=== PATIENT | male | born 1950 | race Caucasian/White ===

== ENCOUNTER 2020-01-15 09:58 | Inpatient (IN) | payer OTHER ==
[2020-01-15] MEDS ORDERED: Azithromycin 500 MG VIAL ONE (10:33)
[2020-01-15] MEDS ORDERED: cefTRIAXone\\ROCEPHIN 2 GM VIAL ONE (10:33)
[2020-01-15] MEDS ORDERED: Magnesium 2 GM/50 ML BAG (IN WATER) ONE (10:33)
[2020-01-15] MEDS ORDERED: Albuterol 200 PUFF (6.7GM INHALER) ONE (10:38)
[2020-01-15] MEDS ORDERED: Iopamidol-370 76% 500 ML 1 ML ONE (10:53)
[2020-01-15 10:58] LABS: #Basophils 0.1 thou/uL (0.0-0.2); #Eosinphils 0.2 thou/uL (0.0-0.7); #Lymphocytes 0.7 thou/uL (1.20-3.40); #Monocytes 1.1 thou/uL (0.11-0.59); #Neutrophils 13.4 thou/uL (1.40-6.50); %Basophils 0.6 % (0.0-1.0); %Lymphocytes 4.7 % (21.0-51.0); %Monocytes 7.2 % (0.0-10.0); %Neutrophils 86.5 % (42.0-75.0); Hemoglobin 11.9 g/dL (14.0-18.0); Mean Corpuscular HGB CONC 33.8 g/dL (32.0-36.0); Mean Corpuscular Hemoglobin 29.9 pg (27.0-31.0); Mean Corpuscular Volume 88.4 fL (78.0-98.0); Mean Platelet Volume 7.9 fL (7.4-10.4); Platelet Count 552 thou/uL (130-400); RBC Distribution Width 11.9 % (11.5-14.5); Red Blood Cell (RBC) Count 3.97 mill/uL (4.70-6.10); White Blood Cell (WBC) Count 15.4 thou/uL (4.8-10.8)
--- NOTE | 2020-01-15 11:07 | RAD ---
PORTABLE CHEST: Date: 01/15/2020 HISTORY: Cough. No comparison. FINDINGS: Chest is rotated. There is cardiomegaly with vascular congestion. Evidence of interstitial congestion and diffuse inter stitial edema and/or infiltrate. Right lung is inadequately evaluated due to the rotation. There is a calcified granuloma in the peripheral left lung. Elevated left hemidiaphragm with gas-filled colon u nder the left hemidiaphragm. IMPRESSION: Cardiomegaly with evidence of vascular congestion and interstitial edema. Right lung is poorly evalua kylee. POS: AH
[2020-01-15 11:35] LABS: ALT (SGPT) 34 U/L (8-55); AST (SGOT) 37 U/L (5-34); Albumin 3.1 g/dL (3.4-4.8); Alkaline Phosphatase 133 U/L (40-110); Anion Gap 16 mmol/L (10-20); BUN (Urea Nitrogen) 12 mg/dL (8.4-25.7); Bilirubin, Total 0.8 mg/dL (0.2-1.2); Calc. Creatinine Clearance 0 mL/min (70-130); Carbon Dioxide 24 mmol/L (23-31); Chloride 96 mmol/L (98-107); Estimated GFR-MDRD 70; Globulin 4.1 g/dL (2.4-3.5); Glucose 131 mg/dL (83-110); Potassium 3.6 mmol/L (3.5-5.1); Protein, Total 7.2 g/dL (5.8-8.1); Sodium 132 mmol/L (136-145)
[2020-01-15 12:03] LABS: CKMB 2.2 ng/mL (0-6.6)
--- NOTE | 2020-01-15 12:20 | CT ---
CT HEAD WITHOUT IV CONTRAST COMPARISON: MRI of the brain obtained at [facility] on 09/08/2019 HISTORY: Injury after a fall. Patient hit head. Patient diaphoretic. TECHNIQUE: Axial CT imaging at 5 mm intervals from vertex through skull base without contrast FINDINGS: There is a CSF density cystic lesion in the region of the pineal gland which was seen on prior MRI ex amination and as reported on prior examination could potentially represent a pineal cyst. This cystic lesion again measures approximately 1.9 cm in AP dimensions. Transverse dimension is difficult to measure due to adjacent ventricular system. Prior MRI examination recommended postcontrast imaging due to size of the lesion. Minimal scattered diminished attenuation is seen in periventricular white matter which is nonspecifi c but likely reflective of mild chronic small vessel ischemic changes. Low-density foci are seen in the [place] which is probably related to artifact, but at a least portion of the areas of diminished att enuation are likely attributable to chronic small vessel ischemic changes. There is no evidence of an acute infarction, hemorrhage, mass effect, or midline shift. There is mild cerebral volume loss. T he ventricular system is normal in size, shape, and position for the degree of sulcal atrophy. Skull base has a normal CT appearance. Visualized paranasal sinuses are clear. Osseous structures appear intact. No depressed calvarial fracture is seen. IMPRESSION: 1. CSF density lesion in the expected location of the pineal gland which was better evaluated on prio r MRI examination. 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 2. Mild chronic small vessel ischemic changes and cerebral volume loss. 3. No acute intracranial abnormalities demonstrated.
[2020-01-15 12:34] LABS: Base Excess-Venous -0.4 mmol/L (-2.0 to 3.0); Bicarbonate (HCO3v) 24.4 mmol/L (22.0-28.0); CO2 Tension (PvCO2) 39.3 mmHg (40.0-50.0); Calcium, Ionized 1.02 mmol/L (1.15-1.33); Chloride 96 mmol/L (98-107); Hemoglobin - Calc 12.9 g/dL (14.0-18.0); Potassium 3.5 mmol/L (3.5-5.1); Sodium 133 mmol/L (138-145); T. Carbon Dioxide 25.6 mmol/L (22.0-28.0); vO2 Saturation-calc 92.1 % (60.0-85.0)
[2020-01-15] MEDS ORDERED: Boostrix 0.5 ML (Tdap) VIAL ONE (12:34)
--- NOTE | 2020-01-15 12:38 | CT ---
EXAM: CTA of the chest HISTORY: Shortness of breath for 2 weeks COMPARISON: None TECHNIQUE: Multiple contiguous axial images were obtained a CTA of the chest with contrast per pulmon elisabet embolism protocol. 3-D oblique MIP reformats and direct coronal reformats were performed. FINDINGS: HEART: Normal in size without focal cardiac abnormality. Calcifications in the coronary arteries. PULMONARY ARTERIES: Normal in caliber without filling defects to suggest pulmonary emboli. MEDIASTINUM: Enlarged right pretracheal lymph node measuring 2.1 cm in size. Other smaller right calin r and mediastinal lymph nodes are seen. LUNGS: Diffuse peripheral groundglass attenuation is seen in the lungs. This is greatest in the right lower lobe. There is a calcified granuloma in the lingula. PLEURAL SPACE: Trace right pleural effusion. CHEST WALL SOFT TISSUES: Unremarkable VISUALIZED OSSEOUS STRUCTURES: Degenerative changes in the spine. Multiple flowing enthesophytes are seen in the spine. VISUALIZED SUBDIAPHRAGMATIC STRUCTURES: Multiple scattered granulomas in the spleen. Hyperplasia of b oth adrenal glands without focal mass. IMPRESSION: 1. No evidence of pulmonary thromboembolism 2. Diffuse peripheral groundglass opacities. This could represent chronic interstitial lung disease. Alternatively, this could represent an atypical infectious infiltrate. 3. Nonspecific mediastinal and hilar lymph node enlargement.
[2020-01-15] MEDS ORDERED: Furosemide 20 MG/2 ML VIAL ONE (12:47)
[2020-01-15] MEDS ORDERED: Enoxaparin Sodium 100 MG/ML SYRINGE ONE (12:48)
[2020-01-15] MEDS ORDERED: Senokot S 8.6-50 MG TAB PO PRN (13:32)
[2020-01-15] MEDS ORDERED: Acetaminophen 325 MG TAB PO PRN (13:32)
[2020-01-15] MEDS ORDERED: Ondansetron PF 4 MG/2 ML Vial IVP PRN (13:32)
[2020-01-15] MEDS ORDERED: Dexamethasone 4 mg/ml Vial ONE (13:46)
[2020-01-15 13:55] LABS: SARS-CoV-2 NAA Rapid Test Not Detected (NotDetected)
[2020-01-15 14:14] LABS: Bacteria/HPF None Seen HPF (None Seen); Bilirubin Negative (Negative); Blood, Urine Negative (Negative); Clarity Clear (Clear); Glucose, Urine (Dipstick) Normal (Negative); Ketone, Urine Negative (Negative); Leukocyte Negative Leu/uL (Negative); Nitrite Negative (Negative); Protein, Urine (Dipstick) 300 mg/dL (Neg-Trace); RBC/HPF 0-3 HPF (0-3); Specific Gravity, Urine 1.024 (1.002-1.036); Squamous Epithelial 0-3 HPF (0-3); WBC/HPF 0-3 HPF (0-3); pH, Urine 6.5 (5.0-9.0)
[2020-01-15 14:32] LABS: INR-International Normal Ratio 1.2; PTT 45.8 sec (22.9-36.1); Prothrombin Time 15.8 sec (12.0-14.7)
[2020-01-15 15:09] LABS: Troponin I 0.356 ng/mL (< 0.028)
[2020-01-15] MEDS ORDERED: Nitroglycerin 2% Ointment 1 INCH/1 GM Packet ONE (15:54)
--- NOTE | 2020-01-15 16:17 | CON ---
DATE OF CONSULTATION: 01/15/2020 CONSULTING PHYSICIAN: Hospitalist Group. REASON FOR CONSULTATION: Pneumonia and hypoxemia. HISTORY OF PRESENT ILLNESS: This is a 69-year-old male, who has been sick for the last 3 weeks. He has been unable to seek medical treatment because he says he did not have a ride. his brother to bring him to the hospital today. He has had fever at home. He has had cough and congestion. X-rays in the emergency room showed fairly dense right-sided infiltrate, confirmed by CT scan. He says he has never had pneumonia in the past. He has never really been a smoker and never had any respiratory issues. PAST MEDICAL HISTORY: 1. Hyperlipidemia. 2. Hypertension. PAST SURGICAL HISTORY: Tonsillectomy. SOCIAL HISTORY: Used smokeless tobacco. Does not drink any alcohol. He lives out near [place]. MEDICATIONS: Prior to admission, none except wunz-pel-hfcvewr Robitussin. ALLERGIES: NONE. REVIEW OF SYSTEMS: Twelve-point review of systems is otherwise negative. PHYSICAL EXAMINATION: VITAL SIGNS: Temperature 98.0, pulse 92, blood pressure 184/98, and O2 saturation 94% on 38% high-flow oxygen. GENERAL: He is awake, alert, talkative, and in no distress. HEENT: Pupils are reactive. Sclerae are anicteric. Oropharynx clear. NECK: No adenopathy or JVD. LUNGS: He has crackles in the right lower lobe best heard posteriorly. He has egophony in that region. Left side is clear. CARDIAC: S1 and S2, regular. ABDOMEN: Soft and nontender. EXTREMITIES: No clubbing or cyanosis. He has trace pedal edema. LABORATORY DATA: COVID test was negative. White blood cell count 15.4, hematocrit 35.1, and platelet count 552. INR is 1.2, PTT 45.8. D-dimer 4.1. Venous blood gas showed a pH of 7.4, pCO2 of 39, and pO2 of 64. Sodium 138, potassium 3.5, chloride 96, CO2 of 24, BUN 12, creatinine 1.1, and glucose 131. Troponin 0.031. C-reactive protein 26. Urinalysis showed some proteinuria. CT and chest x-ray were reviewed. ASSESSMENT: Right lower lobe community-acquired pneumonia versus aspiration pneumonia. RECOMMENDATIONS: 1. I would recommend treating with broad-spectrum IV antibiotics. It looks like he has received azithromycin and ceftriaxone in the emergency room that should be appropriate. 2. Nebulization treatments as needed. 3. Wean off high-flow oxygen as tolerated. 4. His COVID test is going to be repeated as only a rapid one was done earlier. The above encompassed 35 minutes of time, of that time, greater than 50% was spent with the patient and/or the patient's unit in the hospital. Job ID: [id number]
--- NOTE | 2020-01-15 17:08 | HP ---
PRIMARY CARE PHYSICIAN: [place] town, [place]. CHIEF COMPLAINT: Shortness of breath. HISTORY OF PRESENT ILLNESS: This is a 69-year-old white male who reports a 2- to 3-week history of shortness of breath. He states that 3 weeks ago he developed low-grade fevers, nasal congestion, and some cough productive of clear sputum and also at that time developed significant dyspnea on exertion and gets severely short of breath with just ambulating around his house. He took some sibn-vbm-hacwepv medications. The patient states he is still having some low-grade fevers in the afternoon, but a lot of his congestion and cough has improved, but his shortness of breath. He went to his primary care doctor's office today. There, he was found to have O2 saturations in the high 80s and looked to be in some respiratory distress. He was sent to the ER here. In the ER, he was saturating okay on 15 L mask; however, he was still having some increased work of breathing and retractions. The patient did have albuterol and was put on high-flow oxygen and is breathing much better now. His O2 saturations are staying up. The patient also reports that he has had some worsening of his lower extremity edema recently. He states he has had lower extremity edema for years. He has been tried on Lasix in the past without any improvement, was never told that he had congestive heart failure. The last few days he states that it seems like the edema has gone up to his knees now, although he states he cannot really see if he can feel it in his legs and his legs feel very heavy from it. REVIEW OF SYSTEMS: CONSTITUTIONAL: See HPI. EYES: No double vision or blurry vision. ENT: See HPI. He had a little bit of sore throat earlier, none now. CARDIOVASCULAR: No cardiac chest pain. No palpitations or racing heart. PULMONARY: See HPI. He did have a little bit of chest pain with his cough in previous couple of weeks, none currently. GASTROINTESTINAL: No abdominal pain. No nausea or vomiting. No diarrhea or constipation. GENITOURINARY: No dysuria or hematuria. MUSCULOSKELETAL: Some pain in his bilateral knees from the edema. SKIN: No rashes or lesions noted. NEUROLOGIC: No numbness, tingling, or focal weakness. The patient does report some unsteadiness on his feet recently. Has been worse for the last 4 weeks. He did fall and hit his head at one point due to this. PAST MEDICAL HISTORY: 1. Seizure disorder since he was a child. 2. Hypertension, on low-dose atenolol, which he has been out of for 7 to 8 weeks. 3. Hyperlipidemia. 4. 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 This is getting further workup. The patient denies past medical history of asthma or COPD, though there is a COPD notation in his chart. PAST SURGICAL HISTORY: Tonsillectomy. SOCIAL HISTORY: No alcohol or illicit drug use. He does have a longstanding history of chewing tobacco, but has never smoked tobacco products. He reports that he is no longer . He lives with one of his older twin sons, Ga Catherine. He has two other sons Hollis Catherine and Ranjan Catherine, who do not live in town. He also has a brother who lives nearby, Arsen Catherine. The patient states that he would prefer his brother to be his medical decision maker should he be incapacitated. He is a full code. FAMILY HISTORY: Brother with diabetes. His dad of his second heart attack in his late 40s. His mother had an aneurysm that burst in the 1960s and so she was debilitated ever since then, has since in a [place] [facility] [place]. No other family medical history. ALLERGIES: NAPROXEN CAUSES REDNESS AND SWELLING OF FEET AND FACE; HOWEVER, HE IS ABLE TO TAKE ASPIRIN AND OTHER NSAIDS LIKE IBUPROFEN WITHOUT ANY PROBLEM. CURRENT MEDICATIONS: 1. Simvastatin 40 mg daily. 2. Levetiracetam 1000 mg in the morning and 1500 mg at bedtime. 3. Oxcarbazepine 600 mg twice a day. 4. Tamsulosin 0.4 mg daily. 5. Potassium chloride 10 mEq twice a day. 6. Aspirin 81 mg daily. 7. Phenytoin 300 mg twice a day. 8. Atenolol/chlorthalidone 100/25 mg once a day. He has actually been out of this for 7 to 8 weeks. PHYSICAL EXAMINATION: VITAL SIGNS: Blood pressure 164/100, pulse 93, respirations 22 on high-flow oxygen, O2 saturation 95%, temperature 98.4. GENERAL: This is a well-developed obese white male, in no acute distress, currently on the oxygen. HEENT: Pupils equal, round, and reactive to light. Oropharynx clear without lesions, erythema, or exudate. NECK: Supple. No lymphadenopathy. No thyroid nodules or enlargement. No significant JVD. HEART: Regular rate and rhythm. No murmurs, rubs, or gallops. LUNGS: Clear to auscultation bilaterally. No wheezes, crackles, or rhonchi. ABDOMEN: Soft, nontender to palpation. Normoactive bowel sounds. No hepatosplenomegaly or other masses. EXTREMITIES: The patient has trace edema to bilateral ankles and feet. I do not appreciate significant edema beyond that. SKIN: No rashes or lesions noted. NEUROLOGIC: The patient moves all extremities equally. No facial droop. PSYCHIATRIC: Alert and oriented x3. Normal mood and affect. LABORATORY DATA: CBC with white blood cell count of 15,000, 86% neutrophils, 4.7% lymphocytes, hemoglobin 11.9, hematocrit 35.1, platelet count 552. Coagulation profile is notable for an INR of 1.2 and a D-dimer of 4.11. Venous blood gas showed a pCO2 of 39, a pO2 of 64, and a normal pH. Complete metabolic panel is notable for sodium of 132, chloride of 96, glucose 131, AST of 37, alkaline phosphatase of 133, albumin of 3.1. The rest was normal. His brain natriuretic peptide is elevated at 272. Troponin was elevated at 0.331. C-reactive protein was elevated at 26. His initial COVID rapid test was negative. Urinalysis had 300 protein. The remainder was negative. Chest x-ray: I did review chest x-ray done in the emergency room along with the radiologist's report. It does show cardiomegaly with some evidence of vascular congestion and interstitial edema with poor evaluation in the lower right lung. CT angio of the chest and thorax shows no evidence of pulmonary thromboembolism, but there was diffuse peripheral ground-glass opacities, possibly representing chronic interstitial lung disease versus atypical infectious infiltrate and some nonspecific mediastinal and hilar lymph node enlargement. CT of the brain done for a history of a fall with hitting his head a few days ago. It shows a CSF density lesion in the expected location of the pineal gland consistent with previous MRI examination showing pineal cyst, also some mild chronic past small-vessel ischemic changes and cerebral volume loss, but no acute intracranial abnormalities. EKG: The patient shows a heart rate of 97 beats per minute with premature atrial complexes, prolonged QT of 477, and nonspecific T-wave changes with normal axis. ASSESSMENT: 1. Acute respiratory failure with hypoxia. This could possibly be pulmonary edema versus COVID versus some other lung process like an atypical pneumonia. The patient received Lasix in the emergency room, is putting out good urine output now. We will continue IV Lasix for now. We will get an echocardiogram and consult Cardiology. I have also talked to Dr. Morales. He did agree with repeating a COVID test to make sure via PCR that the patient is negative. We will also give him nebs as needed and continue the high-flow oxygen in the intermediate care unit. 2. Scd-MB-bwdoqpgfb myocardial infarction, possibly due to stress of sepsis versus primary cardiac issue. Dr. Pickering is being consulted. We will continue aspirin and attempt to get the blood pressure down as well. We will go ahead and use nitroglycerin to the chest wall, and if that is not adequate, we can do a nitroglycerin drip if the blood pressures remain elevated. 3. Sepsis from pneumonia. 4. Hypertensive emergency, improved after Lasix, but still fluctuating. We will monitor closely and start a nitroglycerin drip if needed. 5. Seizure disorder. We will resume the patient's home medications. 6. Gastrointestinal prophylaxis. Put the patient on Pepcid twice a day. 7. Deep venous thrombosis prophylaxis. Put the patient on Lovenox twice a day. 8. Code status. The patient is a full code. Should he be incapacitated, he would like his brother, Arsen Catherine, to be his medical decision maker. Job ID: [id number] [facility]
[2020-01-15] MEDS ORDERED: Nitroglycerin 2% Ointment 1 INCH/1 GM Packet TOP SCH (21:00)
[2020-01-15] MEDS ORDERED: Enoxaparin Sodium 40 MG/0.4 ML SYRINGE SC SCH (21:00)
[2020-01-15] MEDS: Famotidine 20 MG TAB PO SCH (21:28)
[2020-01-15] MEDS ORDERED: Famotidine 20 MG TAB ONE (21:29)
[2020-01-15] MEDS ORDERED: Ondansetron ODT 4 MG TAB PO PRN (23:13)
[2020-01-15 23:59] VITALS: BMI 30.2
[2020-01-16] MEDS: Nitroglycerin 2% Ointment 1 INCH/1 GM Packet TOP SCH ×3 (01:18→21:35)
[2020-01-16 03:55] LABS: #Basophils 0.1 thou/uL (0.0-0.2); #Eosinphils 0.2 thou/uL (0.0-0.7); #Lymphocytes 1.5 thou/uL (1.20-3.40); #Monocytes 1.4 thou/uL (0.11-0.59); #Neutrophils 10.7 thou/uL (1.40-6.50); %Basophils 0.5 % (0.0-1.0); %Eosinophils 1.4 % (0.0-10.0); %Lymphocytes 10.8 % (21.0-51.0); %Monocytes 9.8 % (0.0-10.0); %Neutrophils 77.5 % (42.0-75.0); Hemoglobin 10.7 g/dL (14.0-18.0); Mean Corpuscular HGB CONC 33.8 g/dL (32.0-36.0); Mean Corpuscular Hemoglobin 29.9 pg (27.0-31.0); Mean Corpuscular Volume 88.5 fL (78.0-98.0); Mean Platelet Volume 7.6 fL (7.4-10.4); Platelet Count 539 thou/uL (130-400); RBC Distribution Width 11.8 % (11.5-14.5); Red Blood Cell (RBC) Count 3.58 mill/uL (4.70-6.10); White Blood Cell (WBC) Count 13.9 thou/uL (4.8-10.8)
[2020-01-16 04:21] LABS: Anion Gap 13 mmol/L (10-20); BUN (Urea Nitrogen) 13 mg/dL (8.4-25.7); Calc. Creatinine Clearance 96 mL/min (70-130); Calcium 8.8 mg/dL (7.8-10.44); Carbon Dioxide 26 mmol/L (23-31); Chloride 99 mmol/L (98-107); Estimated GFR-MDRD 75; Glucose 112 mg/dL (83-110); Potassium 3.3 mmol/L (3.5-5.1); Sodium 135 mmol/L (136-145)
[2020-01-16] MEDS: Enoxaparin Sodium 40 MG/0.4 ML SYRINGE SC SCH ×2 (06:38→15:54)
[2020-01-16] MEDS ORDERED: OXcarbazepine 600 MG TAB PO SCH (09:00)
--- NOTE | 2020-01-16 09:01 | PRG ---
DATE OF SERVICE: 01/16/2020 SUBJECTIVE: The patient mainly complains about swelling of and weakness in his legs, otherwise feels okay. OBJECTIVE: VITAL SIGNS: Temperature 97.6, pulse 82, blood pressure 139/73, O2 saturation 94% on high-flow nasal cannula at 48%. HEENT: Unremarkable. NECK: No adenopathy or JVD. CHEST: He has right lower lobe crackles on pulmonary exam. CARDIAC: S1, S2. Regular. ABDOMEN: Soft. EXTREMITIES: Trace edema. LABORATORY DATA: Sodium 135, potassium 3.3, chloride 99, CO2 of 26, BUN 13, creatinine 0.9 and glucose 112. White blood cell count 13.9, hematocrit 31.7, and platelet count 539. Influenza test was negative. COVID rapid test was negative. ASSESSMENT: 1. Right lower lobe pneumonia-likely community-acquired bacterial. 2. Severe hypoxemia. 3. Anemia. PLAN: 1. We would repeat standard COVID test. 2. Continue antibiotics. High-flow oxygen. 3. We would not necessarily use steroids on this patient unless he i1s confirmed COVID positive. Job ID: [id number]
--- NOTE | 2020-01-16 09:04 | PDOC.HOSPP ---
- Subjective Encounter Date: 01/16/20 Encounter Time: 09:30 Subjective: Patient reports feeling a bit better today. Still on the high flow O2. - Objective Vital Signs & Weight: Vital Signs (12 hours) Temp Pulse Ox 01/16/20 07:56 97.6 F 01/16/20 03:46 98.6 F 01/16/20 00:00 97.2 F L 01/15/20 23:15 94 L 01/15/20 23:13 97 01/15/20 22:40 97.9 F Weight Weight 216 lb 11.2 oz Most Recent Monitor Data Heart Rate from ECG 82 NIBP 139/73 NIBP BP-Mean 95 Respiration from ECG 27 SpO2 94 Result Diagrams: 01/16/20 03:38 01/16/20 03:38 Hospitalist ROS - Review of Systems Constitutional: denies: fever, chills Respiratory: reports: cough, shortness of breath Cardiovascular: denies: chest pain, palpitations Gastrointestinal: denies: nausea, vomiting, abdominal pain Genitourinary: denies: dysuria, hematuria - Medication Medications: Active Medications Generic Name Dose Route Start Last Admin Trade Name Freq PRN Reason Stop Dose Admin Acetaminophen 650 mg 01/15/20 13:32 01/16/20 06:38 Acetaminophen 325 Mg Tab PO 650 mg Q4H PRN Administration Headache/Fever/Mild Pain (1-3) Enoxaparin Sodium 40 mg 01/16/20 01:00 01/16/20 06:38 Enoxaparin Sodium 40 Mg/0.4 Ml Syringe SC Not Given 0100,1300 [facility] Famotidine 20 mg 01/15/20 21:00 01/15/20 21:28 Famotidine 20 Mg Tab PO 20 mg BID NEERU Administration Nitroglycerin 1 inch 01/15/20 09:00 01/16/20 01:18 Nitroglycerin 2% Ointment 1 Inch/1 Gm Packet TOP Not Given BID NEERU - Exam General Appearance: NAD, awake alert ENT: moist mucosa Heart: RRR, no murmur, no gallops, no rubs Respiratory: no wheezes Respiratory - other findings: course breath sounds in bases Gastrointestinal: soft, non-tender, non-distended, normal bowel sounds Extremities: no edema Psychiatric: normal affect, normal behavior, A&O x 3 Hosp A/P (1) Acute respiratory failure with hypoxia Code(s): J96.01 - ACUTE RESPIRATORY FAILURE WITH HYPOXIA Status: Acute (2) Congestive heart failure Code(s): I50.9 - HEART FAILURE, UNSPECIFIED Status: Acute Qualifiers: Heart failure type: unspecified Heart failure chronicity: acute Qualified Code(s): I50.9 - Heart failure, unspecified (3) HTN (hypertension) Code(s): I10 - ESSENTIAL (PRIMARY) HYPERTENSION Status: Chronic (4) Sepsis Code(s): A41.9 - SEPSIS, UNSPECIFIED ORGANISM Status: Acute (5) Pneumonia Code(s): J18.9 - PNEUMONIA, UNSPECIFIED ORGANISM Status: Acute (6) Seizure disorder Code(s): G40.909 - EPILEPSY, UNSP, NOT INTRACTABLE, WITHOUT STATUS EPILEPTICUS Status: Chronic (7) Type 2 GA (myocardial infarction) Code(s): I21.A1 - MYOCARDIAL INFARCTION TYPE 2 Status: Acute - Plan Diuresing with Lasix, ECHO pending. Dr. Pickering consulted. Repeat Covid-19 test pending, on Dexamethasone On Rocephin and Azithromycin for pneumonia Appreciate Dr. Morales's assistance. GI proph: Pepcid BID DVT proph: Lovenox
[2020-01-16] MEDS ORDERED: Furosemide 40 MG/4 ML VIAL SLOW IVP SCH (09:15)
[2020-01-16] MEDS ORDERED: OXcarbazepine 300 MG TAB PO SCH (10:00)
--- NOTE | 2020-01-16 10:23 | CON ---
DATE OF CONSULTATION: 01/16/2020 INDICATION FOR CONSULTATION: A 69-year-old gentleman with a 3-week history of shortness of breath. We were asked to see him due to shortness of breath and possible congestive heart failure. HISTORY OF PRESENT ILLNESS: A very unfortunate 69-year-old gentleman who has been sick for about 3 weeks. He started having woke up in the middle of the night with some fevers and chills. He started developing cough and congestion. Apparently, he has been COVID negative, but certainly has symptoms which could indicate COVID. He has had worsening of his shortness of breath. He says he has been ill. He went to his primary care doctor's and at that time, was found to have low O2 saturations and was sent to the emergency room. He at this time is still on high-flow oxygen, is breathing better. His O2 saturations are in the 90s. He said he had some problems with lower extremity edema for several years, but has problems with foot pain as he has no edema today when I am seeing him. He has been treated with Lasix in the past. His chest x-ray shows diffuse infiltrates, which appears to be bilateral pneumonias. He certainly could have interstitial lung disease also. He has no significant edema at this time. His legs are somewhat large. He may perhaps have some ankle edema and pedal edema, but otherwise, there is no significant edema noted today. He denies any chest pain he said when he has a cough which he said started about 3 weeks ago. PAST MEDICAL HISTORY: Significant for tonsillectomy, history of seizure disorder, dyslipidemia, and hypertension. He has had a pineal cyst and apparently, he has had no significant sequela noted from this thus far and apparently, he is under the care of Neurology for further evaluation. The records indicate some history of COPD, however, he denies that. He has also had a tonsillectomy. SOCIAL HISTORY: He denies any alcohol or tobacco abuse. He denies any history of alcohol use or illicit drug use. He does have a history of chewing tobacco. He has no history of smoking cigarettes. He was in the past. He has children who are alive and well. FAMILY HISTORY: Positive for diabetes. His father had myocardial infarction. His mother also had some type of aneurysm, most likely cerebral aneurysm. ALLERGIES: HE HAS A HISTORY OF NONSTEROIDAL ALLERGIES IN THE FORM OF NAPROSYN, BUT SAYS HE CAN TAKE OTHER NONSTEROIDALS. PRESENT MEDICATIONS: Included: 1. Simvastatin. 2. Oxcarbazepine. 3. Levetiracetam. 4. Tamsulosin. 5. He takes potassium 10 mEq a day. 6. Aspirin 81 mg a day. 7. He is on phenytoin 300 mg b.i.d. 8. He also takes atenolol/chlorthalidone 100/25 once a day. He has apparently not been taking his medications for about 2 months. REVIEW OF SYSTEMS: He mainly complains of the lower extremity edema and coughing and some chest discomfort when he coughs. Otherwise, no significant complaints on the review of systems. He does complain of the feet and leg pains. He has difficulty walking due to his feet. He says it feels heavy and he has unsteady gait. PHYSICAL EXAMINATION: GENERAL: Reveals an elderly gentleman. VITAL SIGNS: Blood pressure is 135/78, heart rate is in the 70s and shows a sinus rhythm. He is afebrile. Respiratory rate is 22 to 27. He is on high-flow oxygen, O2 saturation is 91% to 97%. HEENT: Reveals the head to be normocephalic and atraumatic. There were no significant abnormalities noted. The thyroid was not enlarged. NECK: He has no significant JVD noted. Carotid pulses are present. CARDIOVASCULAR: Reveals a regular rate and rhythm. There were no gross murmurs. He does have a very soft diastolic murmur of the aortic area. CHEST: Shows diffuse fine rales throughout. ABDOMEN: Soft and nontender. Positive bowel sounds are present . EXTREMITIES: Show no clubbing, cyanosis, or edema. Pedal pulses are present. NEUROLOGIC: I do not see any gross focal motor deficits. SKIN: Warm and dry. LABORATORY DATA: Show a WBC of 13.9, hemoglobin 10.7, and platelet count of 539,000. His sodium is 135, potassium 3.3, BUN was 13 with creatinine 0.98, blood sugar was 112. Troponin I is indeterminate and on admission, was 0.33, increased up to 0.35, has now decreased down to 0.25. Echocardiogram this morning, preliminary report showed ejection fraction to be about 50% to 55%. He has mild aortic valve regurgitation, mild tricuspid valve regurgitation, mild mitral valve regurgitation, what appears to be diastolic dysfunction. Chest x-ray shows diffuse infiltrates. IMPRESSION: 1. Elderly gentleman with bilateral pneumonia. He has been treated with antibiotics at this time and is being seen by the master brewer. 2. Possible congestive heart failure with overlying pneumonia. He was given some diuretics in the emergency room, I believe. He has had some diuresis. There has been no documented I's and O's for today. At this time, continue with low-dose diuretics. He has been on a mild diuretic in the past in the form of his home medications which include chlorthalidone. 3. Hypertension. This appears to be under good control at this time, which may be due to underlying sepsis. Otherwise, he may have had high blood pressure. History of what appears to be diastolic dysfunction. He denies any previous cardiac history. We will continue to monitor the patient and most likely in the future, he will need to undergo further evaluation once the pneumonia has resolved. At this time, his overall cardiac status appears to be relatively stable. 4. Elevated cardiac enzymes, most likely indicates type 2 myocardial infarction with demand ischemia associated with his pneumonia, which has been ongoing for about 3 weeks. We will be more than happy to continue to follow the patient with you. Job ID: [id number] [facility]
[2020-01-16] MEDS: levETIRAcetam 500 MG TAB PO SCH ×2 (10:59→21:30)
[2020-01-16] MEDS: Aspirin 325 MG TAB PO SCH (10:59)
[2020-01-16] MEDS: Dexamethasone 4 MG TAB PO SCH (11:00)
[2020-01-16] MEDS: Famotidine 20 MG TAB PO SCH ×2 (11:00→21:36)
[2020-01-16] MEDS: Azithromycin 500 MG in Sodium Chloride 0.9% 250 ML 250 ML IVPB SCH (11:01)
[2020-01-16] MEDS: cefTRIAXone\\ROCEPHIN 2 GM in Sodium Chloride 0.9% 100 ML IVPB SCH (11:01)
[2020-01-16] MEDS: Tamsulosin HCl 0.4 MG CAP PO SCH (11:01)
[2020-01-16] MEDS: Albuterol 200 PUFF (6.7GM INHALER) INH SCH (15:54)
[2020-01-16] MEDS: Furosemide 40 MG/4 ML VIAL SLOW IVP SCH (15:55)
[2020-01-16 17:30] LABS: SARS-CoV-2 MS2 Positive; SARS-CoV-2 N Gene Negative; SARS-CoV-2 S Gene Negative; SARS-CoV-2 by NAA Not Detected (NotDetected); SARS-CoV-2 orf1ab Negative
[2020-01-16] MEDS ORDERED: FLU VACC QS2020-21(65YR UP)/PF 240 MCG/0.7 ML SYRINGE IM ONE (21:00)
[2020-01-16] MEDS: Atorvastatin Calcium 20 MG TAB PO SCH (21:30)
[2020-01-17] MEDS: Albuterol 200 PUFF (6.7GM INHALER) INH SCH ×5 (05:06→18:29)
[2020-01-17] MEDS: Furosemide 40 MG/4 ML VIAL SLOW IVP SCH ×2 (06:22→13:41)
[2020-01-17] MEDS: Enoxaparin Sodium 40 MG/0.4 ML SYRINGE SC SCH ×4 (06:23→18:28)
--- NOTE | 2020-01-17 07:37 | PDOC.HOSPP ---
- Subjective Encounter Date: 01/17/20 Encounter Time: 07:27 Subjective: dry cough, sob with talking. - Objective Vital Signs & Weight: Vital Signs (12 hours) Temp Pulse Ox 01/17/20 04:00 98.2 F 01/17/20 02:26 100 01/17/20 00:00 97.9 F 01/16/20 20:00 98.3 F 99 Weight Weight 216 lb 11.2 oz Most Recent Monitor Data Heart Rate from ECG 71 NIBP 137/73 NIBP BP-Mean 94 Respiration from ECG 27 SpO2 94 I&O: 01/16/20 01/17/20 01/18/20 06:59 06:59 06:59 Intake Total 1500 Output Total 3425 Balance -1925 Result Diagrams: 01/16/20 03:38 01/16/20 03:38 Hospitalist ROS - Medication Medications: Active Medications Generic Name Dose Route Start Last Admin Trade Name Freq PRN Reason Stop Dose Admin Acetaminophen 650 mg 01/15/20 13:32 01/16/20 06:38 Acetaminophen 325 Mg Tab PO 650 mg Q4H PRN Administration Headache/Fever/Mild Pain (1-3) Albuterol Sulfate 2 puff 01/16/20 15:00 01/17/20 05:06 Albuterol 200 Puff (6.7gm Inhaler) INH Not Given [id number] NEERU Aspirin 325 mg 01/16/20 09:00 01/16/20 10:59 Aspirin 325 Mg Tab PO 325 mg DAILY NEERU Administration Atorvastatin Calcium 20 mg 01/16/20 21:00 01/16/20 21:30 Atorvastatin Calcium 20 Mg Tab PO 20 mg HS NEERU Administration Dexamethasone 6 mg 01/16/20 08:00 01/16/20 11:00 Dexamethasone 4 Mg Tab PO 6 mg QAM-WM NEERU Administration Enoxaparin Sodium 40 mg 01/17/20 06:00 01/17/20 06:23 Enoxaparin Sodium 40 Mg/0.4 Ml Syringe SC 40 mg 0600,1800 NEERU Administration Famotidine 20 mg 01/15/20 21:00 01/16/20 21:36 Famotidine 20 Mg Tab PO Not Given BID NEERU Furosemide 40 mg 01/16/20 14:00 01/17/20 06:22 Furosemide 40 Mg/4 Ml Vial SLOW IVP 40 mg 0600,1400 NEERU Administration Ceftriaxone Sodium 2 gm/ 100 mls @ 200 mls/hr 01/16/20 11:00 01/16/20 11:01 Sodium Chloride IVPB 100 mls Q24HR NEERU Administration Azithromycin 500 mg/ Sodium 250 mls @ 250 mls/hr 01/16/20 12:00 01/16/20 11:01 Chloride IVPB 250 mls Q24HR NEERU Administration Levetiracetam 1,000 mg 01/16/20 09:00 01/16/20 10:59 Levetiracetam 500 Mg Tab PO 1,000 mg QAM NEERU Administration Levetiracetam 1,500 mg 01/16/20 21:00 01/16/20 21:30 Levetiracetam 500 Mg Tab PO 1,500 mg QPM NEERU Administration Nitroglycerin 1 inch 01/15/20 09:00 01/16/20 21:35 Nitroglycerin 2% Ointment 1 Inch/1 Gm Packet TOP Not Given BID NEERU Tamsulosin HCl 0.4 mg 01/16/20 09:00 01/16/20 11:01 Tamsulosin Hcl 0.4 Mg Cap PO 0.4 mg DAILY NEERU Administration - Exam General Appearance: awake alert Neck: no JVD Heart: RRR, no murmur Respiratory - other findings: rales, R>L, coarse BS Gastrointestinal: soft, non-distended, normal bowel sounds Extremities: 1+ LE edema Hosp A/P (1) Acute combined systolic and diastolic congestive heart failure Code(s): I50.41 - ACUTE COMBINED SYSTOLIC AND DIASTOLIC (CONGESTIVE) HRT FAIL Status: Acute (2) Acute respiratory failure with hypoxia Code(s): J96.01 - ACUTE RESPIRATORY FAILURE WITH HYPOXIA Status: Acute (3) Pneumonia Code(s): J18.9 - PNEUMONIA, UNSPECIFIED ORGANISM Status: Acute Qualifiers: Pneumonia type: due to Pneumococcus Laterality: right Lung location: lower lobe of lung Qualified Code(s): J13 - Pneumonia due to Streptococcus pneumoniae (4) Type 2 [place] (myocardial infarction) Code(s): I21.A1 - MYOCARDIAL INFARCTION TYPE 2 Status: Acute (5) HTN (hypertension) Code(s): I10 - ESSENTIAL (PRIMARY) HYPERTENSION Status: Chronic Qualifiers: Hypertension type: essential hypertension Qualified Code(s): I10 - Essential (primary) hypertension (6) Seizure disorder Code(s): G40.909 - EPILEPSY, UNSP, NOT INTRACTABLE, WITHOUT STATUS EPILEPTICUS Status: Chronic - Plan cont high flow O2 cont zithromax/rocephin cont iv diuresis discuss with Cardiology, Pulmonology
[2020-01-17] MEDS: Aspirin 325 MG TAB PO SCH (08:59)
[2020-01-17] MEDS: Dexamethasone 4 MG TAB PO SCH (08:59)
[2020-01-17] MEDS ORDERED: Potassium Chloride 10 MEQ TAB PO SCH (09:00)
[2020-01-17] MEDS: Famotidine 20 MG TAB PO SCH ×2 (09:00→21:23)
[2020-01-17] MEDS: Nitroglycerin 2% Ointment 1 INCH/1 GM Packet TOP SCH ×2 (09:01→21:24)
[2020-01-17] MEDS: Tamsulosin HCl 0.4 MG CAP PO SCH (09:01)
[2020-01-17] MEDS: OXcarbazepine 300 MG TAB PO SCH (09:01)
[2020-01-17] MEDS: levETIRAcetam 500 MG TAB PO SCH ×2 (09:01→21:23)
--- NOTE | 2020-01-17 09:41 | PRG ---
DATE OF SERVICE: 01/17/2020 SUBJECTIVE: The patient seems to be doing somewhat better. OBJECTIVE: VITAL SIGNS: On exam, temperature 97.2, pulse 85, blood pressure 161/95, and O2 saturation 100% on a 45% high-flow nasal cannula. HEENT: Unremarkable. NECK: No adenopathy or JVD. LUNGS: He has inspiratory crackles at the right base. Left side is clear. CARDIAC: S1 and S2, regular. ABDOMEN: Soft. EXTREMITIES: No edema. LABORATORY DATA: No new lab was repeated today. Cultures show no growth to date. ASSESSMENT: 1. Right lower lobe pneumonia. 2. Acute hypoxic respiratory failure. 3. COVID negative x2. 4. Systolic and diastolic cardiac dysfunction. PLAN: 1. The patient can be transferred out to the medical floor from my standpoint. I would continue with the antibiotics. 2. Consult physical therapy and increase activity as tolerated. Job ID: [id number]
[2020-01-17] MEDS: cefTRIAXone\\ROCEPHIN 2 GM in Sodium Chloride 0.9% 100 ML IVPB SCH (12:35)
[2020-01-17] MEDS: Azithromycin 500 MG in Sodium Chloride 0.9% 250 ML 250 ML IVPB SCH (12:35)
[2020-01-17] MEDS: Atorvastatin Calcium 20 MG TAB PO SCH (21:23)
[2020-01-18 03:47] LABS: #Basophils 0.1 thou/uL (0.0-0.2); #Eosinphils 0.6 thou/uL (0.0-0.7); #Lymphocytes 1.9 thou/uL (1.20-3.40); #Neutrophils 10.1 thou/uL (1.40-6.50); %Basophils 0.6 % (0.0-1.0); %Eosinophils 4.5 % (0.0-10.0); %Lymphocytes 13.6 % (21.0-51.0); %Monocytes 7.4 % (0.0-10.0); Hemoglobin 11.3 g/dL (14.0-18.0); Mean Corpuscular HGB CONC 33.3 g/dL (32.0-36.0); Mean Corpuscular Hemoglobin 29.3 pg (27.0-31.0); Mean Platelet Volume 7.7 fL (7.4-10.4); Platelet Count 537 thou/uL (130-400); RBC Distribution Width 11.8 % (11.5-14.5); Red Blood Cell (RBC) Count 3.85 mill/uL (4.70-6.10); White Blood Cell (WBC) Count 13.6 thou/uL (4.8-10.8)
[2020-01-18 04:08] LABS: Anion Gap 13 mmol/L (10-20); BUN (Urea Nitrogen) 19 mg/dL (8.4-25.7); Calc. Creatinine Clearance 94 mL/min (70-130); Calcium 8.8 mg/dL (7.8-10.44); Carbon Dioxide 30 mmol/L (23-31); Chloride 95 mmol/L (98-107); Estimated GFR-MDRD 74; Glucose 86 mg/dL (83-110); Sodium 135 mmol/L (136-145)
[2020-01-18] MEDS: Enoxaparin Sodium 40 MG/0.4 ML SYRINGE SC SCH ×2 (06:54→17:46)
[2020-01-18] MEDS: Furosemide 40 MG/4 ML VIAL SLOW IVP SCH (06:54)
[2020-01-18] MEDS: Albuterol 200 PUFF (6.7GM INHALER) INH SCH ×4 (08:13→18:35)
--- NOTE | 2020-01-18 08:18 | PDOC.HOSPP ---
- Subjective Encounter Date: 01/18/20 Encounter Time: 08:12 Subjective: mild sob, otherwise ok - Objective Vital Signs & Weight: Vital Signs (12 hours) Temp 01/18/20 04:39 98.2 F 01/17/20 23:28 98.0 F Weight Weight 216 lb 11.2 oz Most Recent Monitor Data Heart Rate from ECG 86 NIBP 142/78 NIBP BP-Mean 99 Respiration from ECG 28 SpO2 92 I&O: 01/17/20 01/18/20 01/19/20 06:59 06:59 06:59 Intake Total 1500 1530 Output Total 3032 8689 Balance -1925 -555 Result Diagrams: 01/18/20 03:30 01/18/20 03:30 Hospitalist ROS - Medication Medications: Active Medications Generic Name Dose Route Start Last Admin Trade Name Freq PRN Reason Stop Dose Admin Acetaminophen 650 mg 01/15/20 13:32 01/16/20 06:38 Acetaminophen 325 Mg Tab PO 650 mg Q4H PRN Administration Headache/Fever/Mild Pain (1-3) Albuterol Sulfate 2 puff 01/16/20 15:00 01/17/20 18:29 Albuterol 200 Puff (6.7gm Inhaler) INH 2 puff [id number] NEERU Administration Aspirin 325 mg 01/16/20 09:00 01/17/20 08:59 Aspirin 325 Mg Tab PO 325 mg DAILY NEERU Administration Atorvastatin Calcium 20 mg 01/16/20 21:00 01/17/20 21:23 Atorvastatin Calcium 20 Mg Tab PO 20 mg HS NEERU Administration Dexamethasone 6 mg 01/16/20 08:00 01/17/20 08:59 Dexamethasone 4 Mg Tab PO 6 mg QAM-WM NEERU Administration Enoxaparin Sodium 40 mg 01/17/20 06:00 01/18/20 06:54 Enoxaparin Sodium 40 Mg/0.4 Ml Syringe SC 40 mg 0600,1800 NEERU Administration Famotidine 20 mg 01/15/20 21:00 01/17/20 21:23 Famotidine 20 Mg Tab PO Not Given BID NEERU Furosemide 40 mg 01/16/20 14:00 01/18/20 06:54 Furosemide 40 Mg/4 Ml Vial SLOW IVP 40 mg 0600,1400 NEERU Administration Ceftriaxone Sodium 2 gm/ 100 mls @ 200 mls/hr 01/16/20 11:00 01/17/20 12:35 Sodium Chloride IVPB 100 mls Q24HR NEERU Administration Azithromycin 500 mg/ Sodium 250 mls @ 250 mls/hr 01/16/20 12:00 01/17/20 12:35 Chloride IVPB 250 mls Q24HR NEERU Administration Levetiracetam 1,000 mg 01/16/20 09:00 01/17/20 09:01 Levetiracetam 500 Mg Tab PO 1,000 mg QAM NEERU Administration Levetiracetam 1,500 mg 01/16/20 21:00 01/17/20 21:23 Levetiracetam 500 Mg Tab PO 1,500 mg QPM NEERU Administration Nitroglycerin 1 inch 01/15/20 09:00 01/17/20 21:24 Nitroglycerin 2% Ointment 1 Inch/1 Gm Packet TOP Not Given BID NEERU Oxcarbazepine 600 mg 01/17/20 09:00 01/17/20 09:01 Oxcarbazepine 300 Mg Tab PO 600 mg DAILY NEERU Administration Potassium Chloride 10 meq 01/17/20 09:00 01/17/20 09:01 Potassium Chloride 10 Meq Tab PO 10 meq DAILY NEERU Administration Tamsulosin HCl 0.4 mg 01/16/20 09:00 01/17/20 09:01 Tamsulosin Hcl 0.4 Mg Cap PO 0.4 mg DAILY NEERU Administration - Exam General Appearance: awake alert Neck: no JVD Heart: RRR, no murmur Respiratory - other findings: rales, coarse BS on right Gastrointestinal: soft, normal bowel sounds Extremities: no edema Hosp A/P (1) Acute combined systolic and diastolic congestive heart failure Code(s): I50.41 - ACUTE COMBINED SYSTOLIC AND DIASTOLIC (CONGESTIVE) HRT FAIL Status: Acute (2) Acute respiratory failure with hypoxia Code(s): J96.01 - ACUTE RESPIRATORY FAILURE WITH HYPOXIA Status: Acute (3) Pneumonia Code(s): J18.9 - PNEUMONIA, UNSPECIFIED ORGANISM Status: Acute Qualifiers: Pneumonia type: due to Pneumococcus Laterality: right Lung location: lower lobe of lung Qualified Code(s): J13 - Pneumonia due to Streptococcus pneumoniae (4) Type 2 [place] (myocardial infarction) Code(s): I21.A1 - MYOCARDIAL INFARCTION TYPE 2 Status: Acute (5) HTN (hypertension) Code(s): I10 - ESSENTIAL (PRIMARY) HYPERTENSION Status: Chronic Qualifiers: Hypertension type: essential hypertension Qualified Code(s): I10 - Essential (primary) hypertension (6) Seizure disorder Code(s): G40.909 - EPILEPSY, UNSP, NOT INTRACTABLE, WITHOUT STATUS EPILEPTICUS Status: Chronic - Plan O2 supplementation cont zithromax/rocephin rpt CXR discuss with Cardiology, Pulmonology
--- NOTE | 2020-01-18 08:56 | PRG ---
DATE OF SERVICE: 01/18/2020 SUBJECTIVE: From a breathing standpoint, the patient feels better. He has multiple other complaints not related to his medical issues. OBJECTIVE: VITAL SIGNS: Temperature 98.2, pulse 86, blood pressure 142/78, O2 saturation 92% on room air. HEENT: Unremarkable. NECK: No adenopathy or JVD. LUNGS: Inspiratory crackles in the right base. Left side is clear. CARDIAC: S1, S2. Regular. ABDOMEN: Soft. EXTREMITIES: No edema. LABORATORY DATA: Sodium 135, potassium 3, chloride 95, CO2 of 30, BUN 19, creatinine 1.0, and glucose 86. White blood cell count 13.6, hematocrit 33.9, and platelet count 537. ASSESSMENT: 1. Community-acquired pneumonia-right lower lobe. 2. Acute hypoxic respiratory failure. 3. Systolic and diastolic cardiac dysfunction. 4. Hypokalemia. PLAN: I think we can reduce the dose of his diuretics. He will be given more potassium today. He can be transferred to the medical floor. I will stop his dexamethasone. Job ID: [id number]
--- NOTE | 2020-01-18 09:39 | RAD ---
EXAM: Chest 2 views: HISTORY: Pneumonia and CHF COMPARISON: 01/15/2020 FINDINGS: There is an enlarged cardiomediastinal silhouette. Volume loss is seen in the right thorax. This cau ses tracheal deviation to the right. Airspace opacity seen in the right lower lobe consistent with pneumonia. There is a calcified granuloma in the left upper lobe. There is elevation of the left josefa diaphragm. No acute osseous abnormality. IMPRESSION: Stable right lower lobe infiltrate
[2020-01-18] MEDS: Aspirin 325 MG TAB PO SCH (09:42)
[2020-01-18] MEDS: Tamsulosin HCl 0.4 MG CAP PO SCH (09:43)
[2020-01-18] MEDS: Nitroglycerin 2% Ointment 1 INCH/1 GM Packet TOP SCH ×2 (09:43→21:27)
[2020-01-18] MEDS: OXcarbazepine 300 MG TAB PO SCH (09:43)
[2020-01-18] MEDS: levETIRAcetam 500 MG TAB PO SCH ×2 (09:43→21:26)
[2020-01-18] MEDS: Famotidine 20 MG TAB PO SCH ×2 (09:43→21:26)
[2020-01-18] MEDS: Dexamethasone 4 MG TAB PO SCH (09:45)
[2020-01-18] MEDS: Potassium Chloride 20 MEQ TAB PO SCH (09:48)
--- NOTE | 2020-01-18 10:27 | PQF ---
CLINICAL DOCUMENTATION CLARIFICATION FORM: Dear Dr. DANILO LYMAN Date: 01-18-20 Please exercise your independent, professional judgment in responding to the clarification form. Clinical indicators are provided on the bottom of this form for your review. Please check appropriate box(es) to clarify if the following diagnosis has been ruled in our ruled out: SEPSIS [ ] Ruled in diagnosis [ ] Continue to treat [ ] Resolved [ x] Ruled out diagnosis [ ] Other diagnosis [ ] Unable to determine In addition, please specify: Present on Admission (POA): [ ] Yes [ ] No [ ] Unable to determine For continuity of documentation, please document condition throughout progress notes and discharge summary. Thank You. To be completed by CDI/Coding staff for physician review: CLINICAL INDICATORS - SIGNS / SYMPTOMS / LABS / RESULTS AND LOCATION IN MR: ER DX 01-15-20: BILATERAL PNEUMONIA, COVID SUSPECT, NSTEMI, SEPSIS H&P 01-15-20: ACUTE RESPIRATORY FAILURE WITH HYPOXIA, NSTEMI, POSSIBLY DUE TO STRESS OF SEPSIS VS PRIMARY CARDIAC ISSUE, SEPSIS FROM PNEUMONIA, HTN EMERGENCY PN DR. LYMAN 01-18-20: ACUTE COMBINED SYSTOLIC AND DIASTOLIC CHF, ACUTE RESPIRATORY FAILURE WITH HYPOXIA, PNEUMONIA, TYPE 2 ID WBC: 01-15-20: 15.4 01-16-20: 13.9 01-18-20: 13.6 CRP: 01-15-20: 26.21 RISK FACTORS / RESULTS AND LOCATION IN MR: H&P 01-15-20: ACUTE RESPIRATORY FAILURE WITH HYPOXIA, NSTEMI, POSSIBLY DUE TO STRESS OF SEPSIS VS PRIMARY CARDIAC ISSUE, SEPSIS FROM PNEUMONIA, HTN EMERGENCY TREATMENTS / RESULTS AND LOCATION IN MR: ER NOTES 01-15-20: AZITHROMYCIN IV, CEFTRIAXONE IV, NS IVF CDS Signature: Meaghan Brown Phone #: [phone] Date: 01-18-20 This is a permanent part of the Medical Record [facility]
[2020-01-18] MEDS: cefTRIAXone\\ROCEPHIN 2 GM in Sodium Chloride 0.9% 100 ML IVPB SCH (11:49)
--- NOTE | 2020-01-18 13:41 | PDOC.EVN ---
Event Note - Event Note Event Note: some clearing of R PNA cont current Tx
[2020-01-18] MEDS: Azithromycin 500 MG in Sodium Chloride 0.9% 250 ML 250 ML IVPB SCH (14:36)
[2020-01-18] MEDS: Atorvastatin Calcium 20 MG TAB PO SCH (21:26)
[2020-01-19] MEDS: Enoxaparin Sodium 40 MG/0.4 ML SYRINGE SC SCH ×2 (05:22→17:34)
[2020-01-19] MEDS: Potassium Chloride 20 MEQ TAB PO SCH (09:32)
[2020-01-19] MEDS: Aspirin 325 MG TAB PO SCH (09:33)
[2020-01-19] MEDS: Tamsulosin HCl 0.4 MG CAP PO SCH (09:33)
[2020-01-19] MEDS: OXcarbazepine 300 MG TAB PO SCH (09:33)
[2020-01-19] MEDS: Famotidine 20 MG TAB PO SCH ×2 (09:35→20:24)
[2020-01-19] MEDS: Furosemide 40 MG TAB PO SCH (09:35)
[2020-01-19] MEDS: levETIRAcetam 500 MG TAB PO SCH ×2 (09:35→20:25)
[2020-01-19] MEDS: Nitroglycerin 2% Ointment 1 INCH/1 GM Packet TOP SCH ×2 (09:36→20:25)
[2020-01-19] MEDS: Albuterol 200 PUFF (6.7GM INHALER) INH SCH ×4 (11:14→18:23)
[2020-01-19] MEDS: cefTRIAXone\\ROCEPHIN 2 GM in Sodium Chloride 0.9% 100 ML IVPB SCH (12:23)
--- NOTE | 2020-01-19 13:00 | PDOC.HOSPP ---
- Subjective Encounter Date: 01/19/20 Encounter Time: 08:45 Subjective: Patient seen and examined. No new complaints. No overnight events - Objective Vital Signs & Weight: Vital Signs (12 hours) Temp Pulse Resp BP Pulse Ox 01/19/20 10:57 98.2 F 86 16 149/82 H 96 01/19/20 07:08 98.4 F 82 16 131/75 95 01/19/20 04:16 97.9 F 78 20 131/65 91 L Weight Weight 216 lb 11.2 oz Most Recent Monitor Data Heart Rate from ECG 101 NIBP 146/73 NIBP BP-Mean 97 Respiration from ECG 21 SpO2 94 I&O: 01/18/20 01/19/20 01/20/20 06:59 06:59 06:59 Intake Total 1530 1510 Output Total 2175 2300 Balance -725 -030 Result Diagrams: 01/18/20 03:30 01/18/20 03:30 Hospitalist ROS - Review of Systems ENT: denies: ear pain, ear discharge, nose pain, nose discharge, nose congestion, mouth pain, mouth swelling, throat pain, throat swelling, other Respiratory: denies: cough, dry, shortness of breath, hemoptysis, SOB with excertion, pleuritic pain, sputum, wheezing, other Cardiovascular: denies: chest pain, palpitations, orthopnea, paroxysmal noc. dyspnea, edema, light headedness, other Gastrointestinal: denies: nausea, vomiting, abdominal pain, diarrhea, constipation, melena, hematochezia, other Genitourinary: denies: dysuria, frequency, incontinence, hematuria, retention, other Musculoskeletal: denies: neck pain, shoulder pain, arm pain, back pain, hand pain, leg pain, foot pain, other - Medication Medications: Active Medications Generic Name Dose Route Start Last Admin Trade Name Freq PRN Reason Stop Dose Admin Acetaminophen 650 mg 01/15/20 13:32 01/16/20 06:38 Acetaminophen 325 Mg Tab PO 650 mg Q4H PRN Administration Headache/Fever/Mild Pain (1-3) Albuterol Sulfate 2 puff 01/16/20 15:00 01/19/20 11:17 Albuterol 200 Puff (6.7gm Inhaler) INH Not Given [id number] Aspirin 325 mg 01/16/20 09:00 01/19/20 09:33 Aspirin 325 Mg Tab PO 325 mg DAILY NEERU Administration Atorvastatin Calcium 20 mg 01/16/20 21:00 01/18/20 21:26 Atorvastatin Calcium 20 Mg Tab PO 20 mg HS NEERU Administration Enoxaparin Sodium 40 mg 01/17/20 06:00 01/19/20 05:22 Enoxaparin Sodium 40 Mg/0.4 Ml Syringe SC 40 mg 0600,1800 NEERU Administration Famotidine 20 mg 01/15/20 21:00 01/19/20 09:35 Famotidine 20 Mg Tab PO 20 mg BID NEERU Administration Furosemide 40 mg 01/19/20 07:30 01/19/20 09:35 Furosemide 40 Mg Tab PO 40 mg DAILY-AC NEERU Administration Ceftriaxone Sodium 2 gm/ 100 mls @ 200 mls/hr 01/16/20 11:00 01/19/20 12:23 Sodium Chloride IVPB 100 mls Q24HR NEERU Administration Azithromycin 500 mg/ Sodium 250 mls @ 250 mls/hr 01/16/20 12:00 01/18/20 14:36 Chloride IVPB 250 mls Q24HR NEERU Administration Levetiracetam 1,000 mg 01/16/20 09:00 01/19/20 09:35 Levetiracetam 500 Mg Tab PO 1,000 mg QAM NEERU Administration Levetiracetam 1,500 mg 01/16/20 21:00 01/18/20 21:26 Levetiracetam 500 Mg Tab PO 1,500 mg QPM NEERU Administration Nitroglycerin 1 inch 01/15/20 09:00 01/19/20 09:36 Nitroglycerin 2% Ointment 1 Inch/1 Gm Packet TOP 1 inch BID NEERU Administration Oxcarbazepine 600 mg 01/17/20 09:00 01/19/20 09:33 Oxcarbazepine 300 Mg Tab PO 600 mg DAILY NEERU Administration Potassium Chloride 40 meq 01/18/20 09:00 01/19/20 09:32 Potassium Chloride 20 Meq Tab PO 01/20/20 09:01 40 meq DAILY NEERU Administration Tamsulosin HCl 0.4 mg 01/16/20 09:00 01/19/20 09:33 Tamsulosin Hcl 0.4 Mg Cap PO 0.4 mg DAILY NEERU Administration - Exam General Appearance: NAD, awake alert Eye: PERRL, anicteric sclera ENT: normocephalic atraumatic, no oropharyngeal lesions Neck: supple, symmetric, no JVD, no thyromegaly Heart: RRR, no murmur, no gallops, no rubs Respiratory: CTAB, no wheezes, no rales, no ronchi Gastrointestinal: soft, non-tender, non-distended, normal bowel sounds Extremities: no cyanosis, no clubbing, no edema Skin: normal turgor, no lesions Neurological: no focal deficits Musculoskeletal: normal tone, normal strength Psychiatric: normal affect, normal behavior Hosp A/P (1) Acute combined systolic and diastolic congestive heart failure Code(s): I50.41 - ACUTE COMBINED SYSTOLIC AND DIASTOLIC (CONGESTIVE) HRT FAIL Status: Acute (2) Acute respiratory failure with hypoxia Code(s): J96.01 - ACUTE RESPIRATORY FAILURE WITH HYPOXIA Status: Acute (3) Pneumonia Code(s): J18.9 - PNEUMONIA, UNSPECIFIED ORGANISM Status: Acute Qualifiers: Pneumonia type: due to Pneumococcus Laterality: right Lung location: lower lobe of lung Qualified Code(s): J13 - Pneumonia due to Streptococcus pneumoniae (4) Type 2 [place] (myocardial infarction) Code(s): I21.A1 - MYOCARDIAL INFARCTION TYPE 2 Status: Acute (5) HTN (hypertension) Code(s): I10 - ESSENTIAL (PRIMARY) HYPERTENSION Status: Chronic Qualifiers: Hypertension type: essential hypertension Qualified Code(s): I10 - Essential (primary) hypertension (6) Seizure disorder Code(s): G40.909 - EPILEPSY, UNSP, NOT INTRACTABLE, WITHOUT STATUS EPILEPTICUS Status: Chronic - Plan old records reviewed/req, continue antibiotics, PT/OT, medical social consultant, respiratory therapy continue lasix outpt follow up with cardiology for further evaluation continue iv antibiotics will need placement
[2020-01-19] MEDS: Azithromycin 500 MG in Sodium Chloride 0.9% 250 ML 250 ML IVPB SCH (13:56)
[2020-01-19] MEDS: Atorvastatin Calcium 20 MG TAB PO SCH (20:25)
[2020-01-20] MEDS ORDERED: Calcium Carbonate 500 MG ChewTAB PO PRN (07:50)
[2020-01-20] MEDS ORDERED: Sodium Chloride 0.65% Nasal 44 ML BOT EA NARE PRN (07:50)
[2020-01-20] MEDS ORDERED: Cepastat Lozenges 1 LOZ PO PRN (07:50)
[2020-01-20] MEDS ORDERED: Loperamide HCl 2 MG CAP PO PRN (07:50)
[2020-01-20] MEDS ORDERED: Temazepam 15 MG CAP PO PRN (07:50)
[2020-01-20] MEDS ORDERED: HYDROcodone/Acetaminophen 5/325 mg Tablet PO PRN (07:50)
[2020-01-20] MEDS ORDERED: Bisacodyl 5 MG TAB PO PRN (07:50)
[2020-01-20] MEDS ORDERED: hydrALAZINE 20 MG/ML VIAL SLOW IVP PRN (07:50)
[2020-01-20] MEDS: Tamsulosin HCl 0.4 MG CAP PO SCH (08:20)
[2020-01-20] MEDS: Famotidine 20 MG TAB PO SCH ×2 (08:20→21:20)
[2020-01-20] MEDS: Furosemide 40 MG TAB PO SCH (08:21)
[2020-01-20] MEDS: Albuterol 200 PUFF (6.7GM INHALER) INH SCH ×4 (08:21→18:28)
[2020-01-20] MEDS: Potassium Chloride 20 MEQ TAB PO SCH (08:21)
[2020-01-20] MEDS: OXcarbazepine 300 MG TAB PO SCH (08:21)
[2020-01-20] MEDS: levETIRAcetam 500 MG TAB PO SCH ×2 (08:21→21:16)
[2020-01-20] MEDS: Aspirin 325 MG TAB PO SCH (08:21)
[2020-01-20] MEDS: Enoxaparin Sodium 40 MG/0.4 ML SYRINGE SC SCH (10:12)
--- NOTE | 2020-01-20 10:20 | PDOC.HOSPP ---
- Subjective Encounter Date: 01/20/20 Encounter Time: 08:00 Subjective: Patient seen and examined. No new complaints. No overnight events - Objective Vital Signs & Weight: Vital Signs (12 hours) Temp Pulse Resp BP Pulse Ox 01/20/20 08:21 87 L 01/20/20 08:00 98.8 F 86 18 122/68 96 01/20/20 00:00 99.1 F 92 20 112/66 96 Weight Weight 216 lb 11.2 oz Most Recent Monitor Data Heart Rate from ECG 101 NIBP 146/73 NIBP BP-Mean 97 Respiration from ECG 21 SpO2 94 I&O: 01/19/20 01/20/20 01/21/20 06:59 06:59 06:59 Intake Total 1510 940 360 Output Total 2300 Balance -790 940 360 Result Diagrams: 01/18/20 03:30 01/18/20 03:30 Hospitalist ROS - Review of Systems Eyes: denies: pain, vision change, conjunctivae inflammation, eyelid inflammation, redness, other ENT: denies: ear pain, ear discharge, nose pain, nose discharge, nose congestion, mouth pain, mouth swelling, throat pain, throat swelling, other Respiratory: reports: SOB with excertion. denies: cough, dry, shortness of breath, hemoptysis, pleuritic pain, sputum, wheezing, other Cardiovascular: denies: chest pain, palpitations, orthopnea, paroxysmal noc. dyspnea, edema, light headedness, other Gastrointestinal: denies: nausea, vomiting, abdominal pain, diarrhea, constipation, melena, hematochezia, other Genitourinary: denies: dysuria, frequency, incontinence, hematuria, retention, other Musculoskeletal: denies: neck pain, shoulder pain, arm pain, back pain, hand pain, leg pain, foot pain, other - Medication Medications: Active Medications Generic Name Dose Route Start Last Admin Trade Name Freq PRN Reason Stop Dose Admin Acetaminophen 650 mg 01/15/20 13:32 01/16/20 06:38 Acetaminophen 325 Mg Tab PO 650 mg Q4H PRN Administration Headache/Fever/Mild Pain (1-3) Albuterol Sulfate 2 puff 01/16/20 15:00 01/20/20 08:21 Albuterol 200 Puff (6.7gm Inhaler) INH 2 puff [id number] NEERU Administration Aspirin 325 mg 01/16/20 09:00 01/20/20 08:21 Aspirin 325 Mg Tab PO 325 mg DAILY NEERU Administration Atorvastatin Calcium 20 mg 01/16/20 21:00 01/19/20 20:25 Atorvastatin Calcium 20 Mg Tab PO 20 mg HS NEERU Administration Famotidine 20 mg 01/15/20 21:00 01/20/20 08:20 Famotidine 20 Mg Tab PO 20 mg BID NEERU Administration Furosemide 40 mg 01/19/20 07:30 01/20/20 08:21 Furosemide 40 Mg Tab PO 40 mg DAILY-AC NEERU Administration Ceftriaxone Sodium 2 gm/ 100 mls @ 200 mls/hr 01/16/20 11:00 01/19/20 12:23 Sodium Chloride IVPB 100 mls Q24HR NEERU Administration Azithromycin 500 mg/ Sodium 250 mls @ 250 mls/hr 01/16/20 12:00 01/19/20 13:56 Chloride IVPB 250 mls Q24HR NEERU Administration Levetiracetam 1,000 mg 01/16/20 09:00 01/20/20 08:21 Levetiracetam 500 Mg Tab PO 1,000 mg QAM NEERU Administration Levetiracetam 1,500 mg 01/16/20 21:00 01/19/20 20:25 Levetiracetam 500 Mg Tab PO 1,500 mg QPM NEERU Administration Oxcarbazepine 600 mg 01/17/20 09:00 01/20/20 08:21 Oxcarbazepine 300 Mg Tab PO 600 mg DAILY NEERU Administration Sodium Chloride 10 ml 01/20/20 09:00 01/20/20 08:25 Flush - Normal Saline 10 Ml Syringe IVF 10 ml Q12HR NEERU Administration Tamsulosin HCl 0.4 mg 01/16/20 09:00 01/20/20 08:20 Tamsulosin Hcl 0.4 Mg Cap PO 0.4 mg DAILY NEERU Administration - Exam General Appearance: NAD, awake alert Eye: PERRL, anicteric sclera ENT: normocephalic atraumatic, no oropharyngeal lesions, moist mucosa Neck: symmetric, no JVD, no thyromegaly Heart: RRR, no murmur, no gallops, no rubs Respiratory: CTAB, no wheezes, no rales, no ronchi Gastrointestinal: soft, non-tender, non-distended, normal bowel sounds Extremities: no clubbing, no edema Skin: normal turgor, no lesions, no rashes Neurological: no focal deficits Musculoskeletal: normal tone, normal strength Psychiatric: normal affect, normal behavior Hosp A/P (1) Acute combined systolic and diastolic congestive heart failure Code(s): I50.41 - ACUTE COMBINED SYSTOLIC AND DIASTOLIC (CONGESTIVE) HRT FAIL Status: Acute (2) Acute respiratory failure with hypoxia Code(s): J96.01 - ACUTE RESPIRATORY FAILURE WITH HYPOXIA Status: Acute (3) Pneumonia Code(s): J18.9 - PNEUMONIA, UNSPECIFIED ORGANISM Status: Acute Qualifiers: Pneumonia type: due to Pneumococcus Laterality: right Lung location: lower lobe of lung Qualified Code(s): J13 - Pneumonia due to Streptococcus pneumoniae (4) Type 2 OR (myocardial infarction) Code(s): I21.A1 - MYOCARDIAL INFARCTION TYPE 2 Status: Acute (5) HTN (hypertension) Code(s): I10 - ESSENTIAL (PRIMARY) HYPERTENSION Status: Chronic Qualifiers: Hypertension type: essential hypertension Qualified Code(s): I10 - Essential (primary) hypertension (6) Seizure disorder Code(s): G40.909 - EPILEPSY, UNSP, NOT INTRACTABLE, WITHOUT STATUS EPILEPTICUS Status: Chronic - Plan old records reviewed/req, continue antibiotics Discontinue nitro patch Change Lovenox 40 mg subcu daily Discontinue Rocephin and azithromycin and change to Omnicef 300 mg twice daily Continue PT OT Await placement We will add goal-directed therapy for systolic and diastolic dysfunction with lisinopril 2.5 mg p.o. daily, Coreg 3.125 mg p.o. twice daily, We will repeat labs tomorrow
[2020-01-20] MEDS: Diabetic Tussin 200 MG/10 ML UDCUP PO PRN (14:09)
[2020-01-20] MEDS ORDERED: Carvedilol 3.125 MG TAB PO SCH (21:00)
[2020-01-20] MEDS: Cefdinir 300 MG CAP PO SCH (21:18)
[2020-01-20] MEDS: Atorvastatin Calcium 20 MG TAB PO SCH (21:19)
[2020-01-21] MEDS ORDERED: Enoxaparin Sodium 40 MG/0.4 ML SYRINGE SC SCH (06:00)
[2020-01-21 06:04] LABS: #Basophils 0.1 thou/uL (0.0-0.2); #Eosinphils 1.2 thou/uL (0.0-0.7); #Lymphocytes 1.7 thou/uL (1.20-3.40); #Monocytes 1.4 thou/uL (0.11-0.59); #Neutrophils 11.5 thou/uL (1.40-6.50); %Basophils 0.4 % (0.0-1.0); %Eosinophils 7.4 % (0.0-10.0); %Lymphocytes 10.5 % (21.0-51.0); %Monocytes 8.8 % (0.0-10.0); %Neutrophils 72.9 % (42.0-75.0); Hemoglobin 11.7 g/dL (14.0-18.0); Mean Corpuscular HGB CONC 33.1 g/dL (32.0-36.0); Mean Corpuscular Hemoglobin 30.2 pg (27.0-31.0); Mean Corpuscular Volume 91.3 fL (78.0-98.0); Mean Platelet Volume 7.6 fL (7.4-10.4); Platelet Count 451 thou/uL (130-400); Red Blood Cell (RBC) Count 3.87 mill/uL (4.70-6.10); White Blood Cell (WBC) Count 15.8 thou/uL (4.8-10.8)
[2020-01-21 06:26] LABS: ALT (SGPT) 43 U/L (8-55); AST (SGOT) 30 U/L (5-34); Albumin 3.1 g/dL (3.4-4.8); Alkaline Phosphatase 96 U/L (40-110); Anion Gap 13 mmol/L (10-20); BUN (Urea Nitrogen) 12 mg/dL (8.4-25.7); Bilirubin, Total 0.5 mg/dL (0.2-1.2); Calc. Creatinine Clearance 106 mL/min (70-130); Calcium 8.7 mg/dL (7.8-10.44); Carbon Dioxide 25 mmol/L (23-31); Chloride 100 mmol/L (98-107); Estimated GFR-MDRD 84; Globulin 3.6 g/dL (2.4-3.5); Glucose 108 mg/dL (83-110); Potassium 3.7 mmol/L (3.5-5.1); Protein, Total 6.7 g/dL (5.8-8.1); Sodium 134 mmol/L (136-145)
[2020-01-21] MEDS: Albuterol 200 PUFF (6.7GM INHALER) INH SCH (08:03)
[2020-01-21 08:13] LABS: Actual Bicarbonate (HCO3a) 24.8 mEq/L (22-28); Base Excess (BEa) 0.5 mEq/L (-2.0 to +3.0); CO2 Tension 38.8 mmHg (35.0-45.0); Calcium, Ionized (arterial) 1.19 mmol/L (1.12-1.30); Carboxyhemoglobin (COHb) 0.8 gm% (0.0-3.0); Hemoglobin (Hb) 13.5 g/dL (14.0-18.0); Potassium - ABG Lab 3.71 mmol/L (3.70-5.30); pH, Arterial 7.42 (7.35-7.45)
[2020-01-21] MEDS: levETIRAcetam 500 MG TAB PO SCH ×2 (08:16→21:07)
[2020-01-21] MEDS: Carvedilol 6.25 MG TAB PO SCH ×2 (08:16→21:07)
[2020-01-21] MEDS: Aspirin 325 MG TAB PO SCH (08:16)
[2020-01-21] MEDS: Cefdinir 300 MG CAP PO SCH (08:16)
[2020-01-21] MEDS: Furosemide 40 MG TAB PO SCH (08:17)
[2020-01-21] MEDS: Lisinopril 2.5 MG TAB PO SCH (08:17)
[2020-01-21] MEDS: OXcarbazepine 300 MG TAB PO SCH (08:17)
[2020-01-21] MEDS: Tamsulosin HCl 0.4 MG CAP PO SCH (08:17)
[2020-01-21] MEDS: Famotidine 20 MG TAB PO SCH ×2 (08:17→21:06)
[2020-01-21 08:22] LABS: O2 Tension (PaO2), arterial 43.7 mmHg (> 70.0); Puncture Site RRA
[2020-01-21] MEDS ORDERED: Bisacodyl 10 MG SUPP PR PRN (09:49)
--- NOTE | 2020-01-21 09:53 | PDOC.HOSPP ---
- Subjective Encounter Date: 01/21/20 Encounter Time: 08:20 Subjective: This morning patient is not doing well, he is coughing too much, he is requiring oxygen, he has more wheezing and rattling, patient also reports that he has no bowel movement for almost 1 week, he has very poor appetite, - Objective Vital Signs & Weight: Vital Signs (12 hours) Temp Pulse Resp BP Pulse Ox 01/21/20 08:27 93 L 01/21/20 08:17 85 01/21/20 07:42 98.9 F 85 26 H 139/81 91 L 01/21/20 04:55 92 L Weight Weight 216 lb 11.2 oz Most Recent Monitor Data Heart Rate from ECG 101 NIBP 146/73 NIBP BP-Mean 97 Respiration from ECG 21 SpO2 94 I&O: 01/20/20 01/21/20 01/22/20 06:59 06:59 06:59 Intake Total 940 1290 Balance 940 1290 Result Diagrams: 01/21/20 05:52 01/21/20 05:52 Radiology Reviewed by me: Yes (Will review chest x-ray) Hospitalist ROS - Review of Systems Constitutional: reports: weakness ENT: denies: ear pain, ear discharge, nose pain, nose discharge, nose congestion, mouth pain, mouth swelling, throat pain, throat swelling, other Respiratory: reports: cough, shortness of breath, SOB with excertion. denies: dry, hemoptysis, pleuritic pain, sputum, wheezing, other Cardiovascular: denies: chest pain, palpitations, orthopnea, paroxysmal noc. dyspnea, edema, light headedness, other Gastrointestinal: denies: nausea, vomiting, abdominal pain, diarrhea, constipation, melena, hematochezia, other Genitourinary: denies: dysuria, frequency, incontinence, hematuria, retention, other Musculoskeletal: denies: neck pain, shoulder pain, arm pain, back pain, hand pain, leg pain, foot pain, other - Medication Medications: Active Medications Generic Name Dose Route Start Last Admin Trade Name Freq PRN Reason Stop Dose Admin Acetaminophen 650 mg 01/15/20 13:32 01/16/20 06:38 Acetaminophen 325 Mg Tab PO 650 mg Q4H PRN Administration Headache/Fever/Mild Pain (1-3) Albuterol Sulfate 2 puff 01/16/20 15:00 01/21/20 08:03 Albuterol 200 Puff (6.7gm Inhaler) INH 2 puff [id number] NEERU Administration Aspirin 325 mg 01/16/20 09:00 01/21/20 08:16 Aspirin 325 Mg Tab PO 325 mg DAILY NEERU Administration Atorvastatin Calcium 20 mg 01/16/20 21:00 01/20/20 21:19 Atorvastatin Calcium 20 Mg Tab PO 20 mg HS NEERU Administration Bisacodyl 10 mg 01/20/20 07:50 01/21/20 08:19 Bisacodyl 5 Mg Tab PO 10 mg DAILYPRN PRN Administration Constipation Carvedilol 6.25 mg 01/21/20 09:00 01/21/20 08:16 Carvedilol 6.25 Mg Tab PO 6.25 mg BID NEERU Administration Cefdinir 300 mg 01/20/20 21:00 01/21/20 08:16 Cefdinir 300 Mg Cap PO 300 mg BID NEERU Administration Enoxaparin Sodium 40 mg 01/21/20 06:00 01/21/20 05:53 Enoxaparin Sodium 40 Mg/0.4 Ml Syringe SC 40 mg 0600 NEERU Administration Famotidine 20 mg 01/15/20 21:00 01/21/20 08:17 Famotidine 20 Mg Tab PO 20 mg BID NEERU Administration Furosemide 40 mg 01/19/20 07:30 01/21/20 08:17 Furosemide 40 Mg Tab PO 40 mg DAILY-AC NEERU Administration Guaifenesin 200 mg 01/20/20 07:50 01/20/20 14:09 Diabetic Tussin 200 Mg/10 Ml Udcup PO 200 mg Q4H PRN Administration Cough Levetiracetam 1,000 mg 01/16/20 09:00 01/21/20 08:16 Levetiracetam 500 Mg Tab PO 1,000 mg QAM NEERU Administration Levetiracetam 1,500 mg 01/16/20 21:00 01/20/20 21:16 Levetiracetam 500 Mg Tab PO 1,500 mg QPM NEERU Administration Lisinopril 2.5 mg 01/21/20 09:00 01/21/20 08:17 Lisinopril 2.5 Mg Tab PO 2.5 mg DAILY NEERU Administration Oxcarbazepine 600 mg 01/17/20 09:00 01/21/20 08:17 Oxcarbazepine 300 Mg Tab PO 600 mg DAILY NEERU Administration Sodium Chloride 10 ml 01/20/20 09:00 01/21/20 08:36 Flush - Normal Saline 10 Ml Syringe IVF 10 ml Q12HR NEERU Administration Tamsulosin HCl 0.4 mg 01/16/20 09:00 01/21/20 08:17 Tamsulosin Hcl 0.4 Mg Cap PO 0.4 mg DAILY NEERU Administration - Exam General Appearance: NAD, ill appearing Eye: PERRL, anicteric sclera ENT: normocephalic atraumatic, no oropharyngeal lesions Neck: supple, symmetric, no JVD Heart: RRR, no rubs Respiratory: rales, rhonchi, tachypneic, wheezes Gastrointestinal: soft, non-tender, non-distended, normal bowel sounds Extremities: no cyanosis, no clubbing Skin: normal turgor, no lesions Neurological: no focal deficits Musculoskeletal: normal tone, normal strength Psychiatric: normal affect, normal behavior Hosp A/P (1) Acute combined systolic and diastolic congestive heart failure Code(s): I50.41 - ACUTE COMBINED SYSTOLIC AND DIASTOLIC (CONGESTIVE) HRT FAIL Status: Acute (2) Acute respiratory failure with hypoxia Code(s): J96.01 - ACUTE RESPIRATORY FAILURE WITH HYPOXIA Status: Acute (3) Pneumonia Code(s): J18.9 - PNEUMONIA, UNSPECIFIED ORGANISM Status: Acute Qualifiers: Pneumonia type: due to Pneumococcus Laterality: right Lung location: lower lobe of lung Qualified Code(s): J13 - Pneumonia due to Streptococcus pneumoniae (4) Type 2 OK (myocardial infarction) Code(s): I21.A1 - MYOCARDIAL INFARCTION TYPE 2 Status: Acute (5) HTN (hypertension) Code(s): I10 - ESSENTIAL (PRIMARY) HYPERTENSION Status: Chronic Qualifiers: Hypertension type: essential hypertension Qualified Code(s): I10 - Essential (primary) hypertension (6) Seizure disorder Code(s): G40.909 - EPILEPSY, UNSP, NOT INTRACTABLE, WITHOUT STATUS EPILEPTICUS Status: Chronic - Plan old records reviewed/req, continue antibiotics, PT/OT, respiratory therapy, DVT proph w/lovenox We will add doxycycline 100 mg p.o. twice daily to cover gram-positive cocci and atypical We will give Lasix 40 mg IV now, DuoNeb now Add DuoNeb every 4 hourly Add Solu-Medrol 40 mg IV every 12 hourly ABG reviewed Continue oxygen to maintain saturation above 92% We will order chest x-ray Add Mucinex 6 mg twice daily Medication reviewed and continue provide symptomatic and supportive care We will repeat labs tomorrow We will close monitor his hemodynamics.
[2020-01-21] MEDS ORDERED: Furosemide 40 MG/4 ML VIAL SLOW IVP SCH (10:00)
[2020-01-21] MEDS ORDERED: Magnesium Citrate 300 ML BOT PO SCH (10:00)
[2020-01-21] MEDS: Polyethylene Glycol 3350 17 GM Packet PO SCH ×2 (10:47→21:09)
[2020-01-21] MEDS: methylPREDNISolone Sod Succ 40 MG VIAL IVP SCH ×2 (10:48→21:11)
--- NOTE | 2020-01-21 10:54 | RAD ---
XR Chest 1 View History: Pneumonia Comparison: Radiograph January 18, 2020. CTA chest January 15, 2020 Findings: Volume loss right hemithorax. Worsening lung aeration from the comparison examination with new opacities throughout the right lung and left upper lobe. Impression: Worsening pneumonia.
[2020-01-21] MEDS ORDERED: Pharmacy to Dose VANC AND CEFEPIME IVPB PRN (11:02)
[2020-01-21] MEDS: Cefepime 2 GM in Sodium Chloride 0.9% 100 ML IVPB SCH ×2 (12:06→23:30)
[2020-01-21] MEDS: Vancomycin 1.5 GRAM/300 ML BAG 1.5 GM in Premix Bag 1 BAG IVPB SCH (13:01)
--- NOTE | 2020-01-21 14:14 | PRG ---
DATE OF SERVICE: 01/21/2020 SUBJECTIVE: I was asked by Dr. Avendano to see the patient again because he felt the patient was getting worse. The patient remains on high-flow nasal cannula. OBJECTIVE: VITAL SIGNS: His temperature is 98.9, pulse 90, O2 saturation running in the 90s on 50% high-flow nasal cannula. HEENT: Unremarkable. NECK: No JVD. LUNGS: Port removed on the right. Clear left. CARDIAC: S1 and S2. Regular. ABDOMEN: Soft. EXTREMITIES: No edema. LABORATORY DATA: White blood cell count 15.8, hematocrit 35.3, and platelet count 451. INR 1.2. The pH was 7.42, pCO2 of 38, pO2 of 43, that was on 5 L before he was bumped up on high-flow nasal cannula. Sodium 134, potassium 3.7, chloride 100, CO2 of 25, BUN 12, creatinine 0.8, and glucose 108. Chest x-ray continues to show right-sided infiltrate. ASSESSMENT: Pneumonia with failure to improve. PLAN: He has been placed back on cefepime and vancomycin. At this point, I think adding back steroids is a good idea. Continue with high-flow oxygen. High risk for decompensation. Job ID: [id number]
[2020-01-21] MEDS ORDERED: Doxycycline 100 MG CAP PO SCH (21:00)
[2020-01-21] MEDS: Atorvastatin Calcium 20 MG TAB PO SCH (21:07)
[2020-01-21] MEDS: guaiFENesin ER 600 MG TAB PO SCH (21:07)
[2020-01-22] MEDS: Vancomycin 1.5 GRAM/300 ML BAG 1.5 GM in Premix Bag 1 BAG IVPB SCH ×3 (00:26→23:54)
[2020-01-22 05:29] LABS: #Lymphocytes 0.9 thou/uL (1.20-3.40); #Monocytes 0.7 thou/uL (0.11-0.59); #Neutrophils 15.5 thou/uL (1.40-6.50); %Basophils 0.1 % (0.0-1.0); %Eosinophils 0.2 % (0.0-10.0); %Neutrophils 90.6 % (42.0-75.0); Hemoglobin 11.2 g/dL (14.0-18.0); Mean Corpuscular HGB CONC 32.1 g/dL (32.0-36.0); Mean Corpuscular Volume 90.1 fL (78.0-98.0); Platelet Count 533 thou/uL (130-400); Red Blood Cell (RBC) Count 3.87 mill/uL (4.70-6.10); White Blood Cell (WBC) Count 17.1 thou/uL (4.8-10.8)
[2020-01-22 05:46] LABS: ALT (SGPT) 54 U/L (8-55); AST (SGOT) 44 U/L (5-34); Albumin 3.1 g/dL (3.4-4.8); Alkaline Phosphatase 96 U/L (40-110); Anion Gap 15 mmol/L (10-20); BUN (Urea Nitrogen) 21 mg/dL (8.4-25.7); Bilirubin, Total 0.4 mg/dL (0.2-1.2); Calc. Creatinine Clearance 82 mL/min (70-130); Calcium 9.3 mg/dL (7.8-10.44); Carbon Dioxide 26 mmol/L (23-31); Chloride 98 mmol/L (98-107); Estimated GFR-MDRD 63; Globulin 3.8 g/dL (2.4-3.5); Glucose 145 mg/dL (83-110); Potassium 4.1 mmol/L (3.5-5.1); Protein, Total 6.9 g/dL (5.8-8.1); Sodium 135 mmol/L (136-145)
[2020-01-22] MEDS: Lisinopril 2.5 MG TAB PO SCH (08:39)
[2020-01-22] MEDS: Carvedilol 6.25 MG TAB PO SCH ×2 (08:40→20:11)
[2020-01-22] MEDS: levETIRAcetam 500 MG TAB PO SCH ×2 (08:40→20:11)
[2020-01-22] MEDS: OXcarbazepine 300 MG TAB PO SCH (08:40)
[2020-01-22] MEDS: Enoxaparin Sodium 40 MG/0.4 ML SYRINGE SC SCH (08:41)
[2020-01-22] MEDS: Tamsulosin HCl 0.4 MG CAP PO SCH (08:41)
[2020-01-22] MEDS: guaiFENesin ER 600 MG TAB PO SCH ×2 (08:41→20:11)
[2020-01-22] MEDS: Furosemide 40 MG TAB PO SCH (08:41)
[2020-01-22] MEDS: Aspirin 325 MG TAB PO SCH (08:41)
[2020-01-22] MEDS: Famotidine 20 MG TAB PO SCH ×2 (08:53→20:10)
--- NOTE | 2020-01-22 10:12 | PRG ---
DATE OF SERVICE: 01/22/2020 SUBJECTIVE: He is about the same. Still on high-flow oxygen 50%. OBJECTIVE: VITAL SIGNS: His temperature is 98.2, pulse 91, blood pressure 125/71, O2 saturation running in the low 90s. HEENT: Unremarkable. NECK: No JVD. LUNGS: He has some crackles on the right, left side is clear. ABDOMEN: Soft and nontender. EXTREMITIES: No edema. IMAGING STUDIES: X-ray from yesterday continues to show a right-sided infiltrate. ASSESSMENT: 1. Pneumonia. 2. Hypoxic respiratory failure. 3. Probable underlying chronic obstructive pulmonary disease. PLAN: 1. Continue cefepime and vancomycin. 2. Steroids were added yesterday. 3. We will continue to follow. Job ID: [id number]
[2020-01-22] MEDS: Polyethylene Glycol 3350 17 GM Packet PO SCH ×2 (11:27→20:11)
--- NOTE | 2020-01-22 11:38 | PDOC.HOSPP ---
- Subjective Encounter Date: 01/22/20 Encounter Time: 09:00 Subjective: Patient seen and examined. Patient has no fever, but he has still shortness of breath and cough, he is still requiring high flow oxygen, no overnight events - Objective Vital Signs & Weight: Vital Signs (12 hours) Pulse Resp BP Pulse Ox 01/22/20 11:06 77 18 96 01/22/20 08:40 125/71 01/22/20 08:39 91 124/71 01/22/20 02:21 73 20 90 L Weight Weight 216 lb 11.2 oz Most Recent Monitor Data Heart Rate from ECG 101 NIBP 146/73 NIBP BP-Mean 97 Respiration from ECG 21 SpO2 94 I&O: 01/21/20 01/22/20 01/23/20 06:59 06:59 06:59 Intake Total 1290 1720 Output Total 450 Balance 1290 1270 Result Diagrams: 01/22/20 05:04 01/22/20 05:04 Hospitalist ROS - Review of Systems Constitutional: reports: weakness. denies: fever, chills, sweats, malaise, other Respiratory: reports: cough, shortness of breath, SOB with excertion. denies: dry, hemoptysis, pleuritic pain, sputum, wheezing, other Cardiovascular: denies: chest pain, palpitations, orthopnea, paroxysmal noc. dyspnea, edema, light headedness, other Gastrointestinal: denies: nausea, vomiting, abdominal pain, diarrhea, constipation, melena, hematochezia, other Genitourinary: denies: dysuria, frequency, incontinence, hematuria, retention, other Musculoskeletal: denies: neck pain, shoulder pain, arm pain, back pain, hand pain, leg pain, foot pain, other - Medication Medications: Active Medications Generic Name Dose Route Start Last Admin Trade Name Freq PRN Reason Stop Dose Admin Acetaminophen 650 mg 01/15/20 13:32 01/16/20 06:38 Acetaminophen 325 Mg Tab PO 650 mg Q4H PRN Administration Headache/Fever/Mild Pain (1-3) Albuterol/Ipratropium 3 ml 01/21/20 10:30 01/22/20 11:06 Ipratropium/Albuterol Sulfate 3 Ml Neb NEB 3 ml [id number] NEERU Administration Aspirin 325 mg 01/16/20 09:00 01/22/20 08:41 Aspirin 325 Mg Tab PO 325 mg DAILY NEERU Administration Atorvastatin Calcium 20 mg 01/16/20 21:00 01/21/20 21:07 Atorvastatin Calcium 20 Mg Tab PO 20 mg HS NEERU Administration Bisacodyl 10 mg 01/20/20 07:50 01/21/20 08:19 Bisacodyl 5 Mg Tab PO 10 mg DAILYPRN PRN Administration Constipation Carvedilol 6.25 mg 01/21/20 09:00 01/22/20 08:40 Carvedilol 6.25 Mg Tab PO 6.25 mg BID NEERU Administration Enoxaparin Sodium 40 mg 01/22/20 09:00 01/22/20 08:41 Enoxaparin Sodium 40 Mg/0.4 Ml Syringe SC Not Given 09 NEERU Famotidine 20 mg 01/15/20 21:00 01/22/20 08:53 Famotidine 20 Mg Tab PO Not Given BID NEERU Furosemide 40 mg 01/19/20 07:30 01/22/20 08:41 Furosemide 40 Mg Tab PO 40 mg DAILY-AC NEREU Administration Guaifenesin 200 mg 01/20/20 07:50 01/20/20 14:09 Diabetic Tussin 200 Mg/10 Ml Udcup PO 200 mg Q4H PRN Administration Cough Guaifenesin 600 mg 01/21/20 21:00 01/22/20 08:41 Guaifenesin Er 600 Mg Tab PO 600 mg Q12HR NEERU Administration Cefepime HCl 2 gm/ Sodium 100 mls @ 200 mls/hr 01/21/20 12:00 01/21/20 23:30 Chloride IVPB 100 mls 1200,2359 NEERU Administration Vancomycin HCl 1.5 gm/ Device 300 mls @ 200 mls/hr 01/21/20 12:00 01/22/20 00:26 IVPB 300 mls 1200,2359 NEERU Administration Levetiracetam 1,000 mg 01/16/20 09:00 01/22/20 08:40 Levetiracetam 500 Mg Tab PO 1,000 mg QAM NEERU Administration Levetiracetam 1,500 mg 01/16/20 21:00 01/21/20 21:07 Levetiracetam 500 Mg Tab PO 1,500 mg QPM NEERU Administration Lisinopril 2.5 mg 01/21/20 09:00 01/22/20 08:39 Lisinopril 2.5 Mg Tab PO 2.5 mg DAILY NEERU Administration Methylprednisolone Sodium Succinate 40 mg 01/21/20 10:00 01/21/20 21:11 Methylprednisolone Sod Succ 40 Mg Vial IVP 40 mg Q12H NEERU Administration Oxcarbazepine 600 mg 01/17/20 09:00 01/22/20 08:40 Oxcarbazepine 300 Mg Tab PO 600 mg DAILY NEERU Administration Polyethylene Glycol 17 gm 01/21/20 10:00 01/22/20 11:27 Polyethylene Glycol 3350 17 Gm Packet PO Not Given Q12H NEERU Sodium Chloride 10 ml 01/20/20 09:00 01/22/20 08:41 Flush - Normal Saline 10 Ml Syringe IVF 10 ml Q12HR NEERU Administration Tamsulosin HCl 0.4 mg 01/16/20 09:00 01/22/20 08:41 Tamsulosin Hcl 0.4 Mg Cap PO 0.4 mg DAILY NEERU Administration - Exam General Appearance: NAD, ill appearing Eye: PERRL, anicteric sclera ENT: normocephalic atraumatic, no oropharyngeal lesions Neck: supple, symmetric, no JVD, no thyromegaly Heart: RRR, no murmur, no gallops, no rubs Respiratory: rales, tachypneic Respiratory - other findings: Wheezing and rales on the right side Gastrointestinal: soft, non-tender, non-distended, normal bowel sounds Extremities: no cyanosis, no clubbing, no edema Skin: normal turgor, no lesions Neurological: no focal deficits Musculoskeletal: normal tone, normal strength Psychiatric: normal affect, normal behavior Hosp A/P (1) Acute combined systolic and diastolic congestive heart failure Code(s): I50.41 - ACUTE COMBINED SYSTOLIC AND DIASTOLIC (CONGESTIVE) HRT FAIL Status: Acute (2) Acute respiratory failure with hypoxia Code(s): J96.01 - ACUTE RESPIRATORY FAILURE WITH HYPOXIA Status: Acute (3) Pneumonia Code(s): J18.9 - PNEUMONIA, UNSPECIFIED ORGANISM Status: Acute Qualifiers: Pneumonia type: due to Pneumococcus Laterality: right Lung location: lower lobe of lung Qualified Code(s): J13 - Pneumonia due to Streptococcus pneumoniae (4) Type 2 VT (myocardial infarction) Code(s): I21.A1 - MYOCARDIAL INFARCTION TYPE 2 Status: Acute (5) HTN (hypertension) Code(s): I10 - ESSENTIAL (PRIMARY) HYPERTENSION Status: Chronic Qualifiers: Hypertension type: essential hypertension Qualified Code(s): I10 - Essen tial (primary) hypertension (6) Seizure disorder Code(s): G40.909 - EPILEPSY, UNSP, NOT INTRACTABLE, WITHOUT STATUS EPILEPTICUS Status: Chronic - Plan old records reviewed/req, continue antibiotics, PT/OT, social services manager, respiratory therapy Continue cefepime and vancomycin Continue Solu-Medrol Continue respiratory therapy Pulmonary recommendation appreciated Medication reviewed and continue provide symptomatic and supportive care Patient is not ready for discharge We will repeat labs tomorrow
[2020-01-22] MEDS: methylPREDNISolone Sod Succ 40 MG VIAL IVP SCH ×2 (12:06→20:10)
[2020-01-22] MEDS: Cefepime 2 GM in Sodium Chloride 0.9% 100 ML IVPB SCH ×2 (15:42→23:34)
[2020-01-22] MEDS: Atorvastatin Calcium 20 MG TAB PO SCH (20:11)
[2020-01-22 23:20] LABS: Vancomycin, Trough 23.4 ug/mL
[2020-01-23] MEDS ORDERED: Vancomycin 1.5 GRAM/300 ML BAG 1.5 GM in Premix Bag 1 BAG IVPB SCH (01:00)
[2020-01-23 06:05] LABS: #Lymphocytes 1.2 thou/uL (1.20-3.40); #Monocytes 1.3 thou/uL (0.11-0.59); #Neutrophils 15.2 thou/uL (1.40-6.50); %Basophils 0.3 % (0.0-1.0); %Eosinophils 0.1 % (0.0-10.0); %Lymphocytes 6.6 % (21.0-51.0); %Monocytes 7.1 % (0.0-10.0); %Neutrophils 85.9 % (42.0-75.0); Hemoglobin 11.3 g/dL (14.0-18.0); Mean Corpuscular HGB CONC 32.3 g/dL (32.0-36.0); Mean Corpuscular Volume 89.8 fL (78.0-98.0); Mean Platelet Volume 8.2 fL (7.4-10.4); Platelet Count 515 thou/uL (130-400); Red Blood Cell (RBC) Count 3.91 mill/uL (4.70-6.10); White Blood Cell (WBC) Count 17.7 thou/uL (4.8-10.8)
[2020-01-23 06:19] LABS: Anion Gap 12 mmol/L (10-20); BUN (Urea Nitrogen) 27 mg/dL (8.4-25.7); Calc. Creatinine Clearance 83 mL/min (70-130); Calcium 9.4 mg/dL (7.8-10.44); Carbon Dioxide 31 mmol/L (23-31); Chloride 97 mmol/L (98-107); Estimated GFR-MDRD 63; Glucose 129 mg/dL (83-110); Potassium 4.8 mmol/L (3.5-5.1); Sodium 135 mmol/L (136-145)
[2020-01-23] MEDS: OXcarbazepine 300 MG TAB PO SCH (09:01)
[2020-01-23] MEDS: Furosemide 40 MG TAB PO SCH (09:01)
[2020-01-23] MEDS: Famotidine 20 MG TAB PO SCH (09:02)
[2020-01-23] MEDS: guaiFENesin ER 600 MG TAB PO SCH ×2 (09:02→21:20)
[2020-01-23] MEDS: Aspirin 325 MG TAB PO SCH (09:03)
[2020-01-23] MEDS: levETIRAcetam 500 MG TAB PO SCH ×2 (09:03→21:19)
[2020-01-23] MEDS: Enoxaparin Sodium 40 MG/0.4 ML SYRINGE SC SCH (09:04)
--- NOTE | 2020-01-23 09:05 | RAD ---
Chest one view HISTORY: Pneumonia. Follow-up. COMPARISON: 01/21/2020. FINDINGS: Mediastinum and cardiac silhouette remain shifted rightward with partial obscuration due to dense bilateral infiltrates that are similar in appearance to the prior study. Right worse than left. Slight elevation left hemidiaphragm is unchanged. No evidence of pneumothorax. IMPRESSION : Dense bilateral infiltrates in right lung volume loss are not significantly changed from the most rec ent exam. No new abnormalities.
[2020-01-23] MEDS: Lisinopril 2.5 MG TAB PO SCH (09:06)
[2020-01-23] MEDS: Tamsulosin HCl 0.4 MG CAP PO SCH (09:06)
[2020-01-23] MEDS: Carvedilol 6.25 MG TAB PO SCH (09:07)
--- NOTE | 2020-01-23 09:21 | PRG ---
DATE OF SERVICE: 01/23/2020 SUBJECTIVE: The patient remains in the hospital on high-flow oxygen for treatment of pneumonia. There has been no acute changes overnight. OBJECTIVE: VITAL SIGNS: His temperature is 98.0, pulse 74, respirations 20, O2 saturation 92% on high-flow oxygen, and blood pressure 110/70. HEENT: Unremarkable. NECK: No JVD. LUNGS: Fairly clear. CARDIAC: S1 and S2. Regular. ABDOMEN: Soft. EXTREMITIES: No edema. LABORATORY DATA: White blood cell count 17.7, hematocrit 35.1, and platelet count 515. Sodium 135, potassium 4.8, chloride 97, CO2 of 31, BUN 27, creatinine 1.1, and glucose 129. Got an x-ray today, and it is about the same. ASSESSMENT: 1. Pneumonia. 2. Probable underlying chronic obstructive pulmonary disease. PLAN: I would continue with his antibiotics and steroids. I will stop his Lasix since his BUN and creatinine appear to be increasing. Job ID: [id number]
--- NOTE | 2020-01-23 10:37 | PDOC.HOSPP ---
- Subjective Encounter Date: 01/23/20 Encounter Time: 08:10 Subjective: Patient seen and examined. No new complaints. No overnight events - Objective Vital Signs & Weight: Vital Signs (12 hours) Temp Pulse Resp BP Pulse Ox 01/23/20 08:00 98.0 F 74 20 110/70 92 L 01/23/20 07:48 79 18 93 L 01/23/20 00:06 89 16 96 Weight Weight 216 lb 11.2 oz Most Recent Monitor Data Heart Rate from ECG 101 NIBP 146/73 NIBP BP-Mean 97 Respiration from ECG 21 SpO2 94 I&O: 01/22/20 01/23/20 01/24/20 06:59 06:59 06:59 Intake Total 1720 1600 Output Total 450 1150 Balance 1270 450 Result Diagrams: 01/23/20 05:27 01/23/20 05:27 Radiology Reviewed by me: Yes (X-ray reviewed) Hospitalist ROS - Review of Systems Constitutional: reports: weakness Respiratory: reports: cough, shortness of breath, SOB with excertion. denies: dry, hemoptysis, pleuritic pain, sputum, wheezing, other Cardiovascular: denies: chest pain, palpitations, orthopnea, paroxysmal noc. dyspnea, edema, light headedness, other Gastrointestinal: denies: nausea, vomiting, abdominal pain, diarrhea, constipation, melena, hematochezia, other Genitourinary: denies: dysuria, frequency, incontinence, hematuria, retention, other Musculoskeletal: denies: neck pain, shoulder pain, arm pain, back pain, hand pain, leg pain, foot pain, other - Medication Medications: Active Medications Generic Name Dose Route Start Last Admin Trade Name Freq PRN Reason Stop Dose Admin Acetaminophen 650 mg 01/15/20 13:32 01/16/20 06:38 Acetaminophen 325 Mg Tab PO 650 mg Q4H PRN Administration Headache/Fever/Mild Pain (1-3) Albuterol/Ipratropium 3 ml 01/21/20 10:30 01/23/20 07:48 Ipratropium/Albuterol Sulfate 3 Ml Neb NEB 3 ml [id number] NEERU Administration Aspirin 325 mg 01/16/20 09:00 01/23/20 09:03 Aspirin 325 Mg Tab PO 325 mg DAILY NEERU Administration Atorvastatin Calcium 20 mg 01/16/20 21:00 01/22/20 20:11 Atorvastatin Calcium 20 Mg Tab PO 20 mg HS NEERU Administration Bisacodyl 10 mg 01/20/20 07:50 01/21/20 08:19 Bisacodyl 5 Mg Tab PO 10 mg DAILYPRN PRN Administration Constipation Carvedilol 6.25 mg 01/21/20 09:00 01/23/20 09:07 Carvedilol 6.25 Mg Tab PO Not Given BID NEERU Enoxaparin Sodium 40 mg 01/22/20 09:00 01/23/20 09:04 Enoxaparin Sodium 40 Mg/0.4 Ml Syringe SC 40 mg 0900 NEERU Administration Famotidine 20 mg 01/15/20 21:00 01/23/20 09:02 Famotidine 20 Mg Tab PO Not Given BID NEERU Guaifenesin 200 mg 01/20/20 07:50 01/20/20 14:09 Diabetic Tussin 200 Mg/10 Ml Udcup PO 200 mg Q4H PRN Administration Cough Guaifenesin 600 mg 01/21/20 21:00 01/23/20 09:02 Guaifenesin Er 600 Mg Tab PO 600 mg Q12HR NEERU Administration Cefepime HCl 2 gm/ Sodium 100 mls @ 200 mls/hr 01/21/20 12:00 01/22/20 23:34 Chloride IVPB 100 mls 1200,2359 NEERU Administration Levetiracetam 1,000 mg 01/16/20 09:00 01/23/20 09:03 Levetiracetam 500 Mg Tab PO 1,000 mg QAM NEERU Administration Levetiracetam 1,500 mg 01/16/20 21:00 01/22/20 20:11 Levetiracetam 500 Mg Tab PO 1,500 mg QPM NEERU Administration Lisinopril 2.5 mg 01/21/20 09:00 01/23/20 09:06 Lisinopril 2.5 Mg Tab PO Not Given DAILY NEERU Methylprednisolone Sodium Succinate 40 mg 01/21/20 10:00 01/22/20 20:10 Methylprednisolone Sod Succ 40 Mg Vial IVP 40 mg Q12H NEERU Administration Oxcarbazepine 600 mg 01/17/20 09:00 01/23/20 09:01 Oxcarbazepine 300 Mg Tab PO 600 mg DAILY NEERU Administration Polyethylene Glycol 17 gm 01/21/20 10:00 01/22/20 20:11 Polyethylene Glycol 3350 17 Gm Packet PO 17 gm Q12H NEERU Administration Sodium Chloride 10 ml 01/20/20 09:00 01/22/20 20:20 Flush - Normal Saline 10 Ml Syringe IVF 10 ml Q12HR NEERU Administration Tamsulosin HCl 0.4 mg 01/16/20 09:00 01/23/20 09:06 Tamsulosin Hcl 0.4 Mg Cap PO 0.4 mg DAILY NEERU Administration - Exam General Appearance: NAD, awake alert Eye: PERRL, anicteric sclera ENT: normocephalic atraumatic, no oropharyngeal lesions Neck: supple, symmetric, no JVD, no thyromegaly Heart: RRR, no murmur, no gallops, no rubs Respiratory: rales Respiratory - other findings: Air entry reduced on the right side, Gastrointestinal: soft, non-tender, non-distended, normal bowel sounds Extremities: no cyanosis, no clubbing, no edema Skin: normal turgor, no lesions Neurological: no focal deficits Musculoskeletal: normal tone, normal strength Psychiatric: normal affect, normal behavior Hosp A/P (1) Acute combined systolic and diastolic congestive heart failure Code(s): I50.41 - ACUTE COMBINED SYSTOLIC AND DIASTOLIC (CONGESTIVE) HRT FAIL Status: Ruled-out (2) Acute respiratory failure with hypoxia Code(s): J96.01 - ACUTE RESPIRATORY FAILURE WITH HYPOXIA Status: Acute (3) Pneumonia Code(s): J18.9 - PNEUMONIA, UNSPECIFIED ORGANISM Status: Acute Qualifiers: Pneumonia type: due to Pneumococcus Laterality: right Lung location: lower lobe of lung Qualified Code(s): J13 - Pneumonia due to Streptococcus pneumoniae (4) Type 2 CT (myocardial infarction) Code(s): I21.A1 - MYOCARDIAL INFARCTION TYPE 2 Status: Acute (5) HTN (hypertension) Code(s): I10 - ESSENTIAL (PRIMARY) HYPERTENSION Status: Chronic Qualifiers: Hypertension type: essential hypertension Qualified Code(s): I10 - Essential (primary) hypertension (6) Seizure disorder Code(s): G40.909 - EPILEPSY, UNSP, NOT INTRACTABLE, WITHOUT STATUS EPILEPTICUS Status: Chronic - Plan old records reviewed/req, continue antibiotics, respiratory therapy, DVT proph w/lovenox Continue cefepime and vancomycin Continue Solu-Medrol Continue respiratory therapy Pulmonary recommendation appreciated Medication reviewed and continue provide symptomatic and supportive care Patient is not ready for discharge We will repeat labs tomorrow Repeat chest x-ray showing no improvement
[2020-01-23 12:12] LABS: Vancomycin, Trough 25.5 ug/mL
[2020-01-23] MEDS: methylPREDNISolone Sod Succ 40 MG VIAL IVP SCH ×2 (12:46→21:20)
[2020-01-23] MEDS: Polyethylene Glycol 3350 17 GM Packet PO SCH ×2 (12:50→21:17)
[2020-01-23] MEDS: Cefepime 2 GM in Sodium Chloride 0.9% 100 ML IVPB SCH ×2 (13:56→23:20)
[2020-01-23] MEDS: Atorvastatin Calcium 20 MG TAB PO SCH (21:19)
[2020-01-23] MEDS: Carvedilol 3.125 MG TAB PO SCH (21:19)
[2020-01-24 06:01] LABS: #Lymphocytes 0.9 thou/uL (1.20-3.40); #Monocytes 1.5 thou/uL (0.11-0.59); #Neutrophils 14.4 thou/uL (1.40-6.50); %Basophils 0.1 % (0.0-1.0); %Eosinophils 0.2 % (0.0-10.0); %Lymphocytes 5.5 % (21.0-51.0); %Monocytes 8.6 % (0.0-10.0); %Neutrophils 85.7 % (42.0-75.0); Hemoglobin 11.7 g/dL (14.0-18.0); Mean Corpuscular HGB CONC 32.4 g/dL (32.0-36.0); Mean Corpuscular Hemoglobin 29.1 pg (27.0-31.0); Mean Corpuscular Volume 89.8 fL (78.0-98.0); Mean Platelet Volume 7.9 fL (7.4-10.4); Platelet Count 517 thou/uL (130-400); Red Blood Cell (RBC) Count 4.02 mill/uL (4.70-6.10); White Blood Cell (WBC) Count 16.8 thou/uL (4.8-10.8)
[2020-01-24 06:25] LABS: ALT (SGPT) 163 U/L (8-55); AST (SGOT) 110 U/L (5-34); Albumin 3.1 g/dL (3.4-4.8); Alkaline Phosphatase 106 U/L (40-110); Anion Gap 14 mmol/L (10-20); BUN (Urea Nitrogen) 25 mg/dL (8.4-25.7); Bilirubin, Total 0.3 mg/dL (0.2-1.2); Calc. Creatinine Clearance 97 mL/min (70-130); Carbon Dioxide 27 mmol/L (23-31); Chloride 98 mmol/L (98-107); Estimated GFR-MDRD 76; Globulin 3.8 g/dL (2.4-3.5); Glucose 142 mg/dL (83-110); Potassium 4.4 mmol/L (3.5-5.1); Protein, Total 6.9 g/dL (5.8-8.1); Sodium 135 mmol/L (136-145)
[2020-01-24] MEDS: levETIRAcetam 500 MG TAB PO SCH ×2 (08:15→20:17)
[2020-01-24] MEDS: Tamsulosin HCl 0.4 MG CAP PO SCH (08:15)
[2020-01-24] MEDS: Aspirin 325 MG TAB PO SCH (08:15)
[2020-01-24] MEDS: Carvedilol 3.125 MG TAB PO SCH ×2 (08:16→20:17)
[2020-01-24] MEDS: Enoxaparin Sodium 40 MG/0.4 ML SYRINGE SC SCH (08:16)
[2020-01-24] MEDS: guaiFENesin ER 600 MG TAB PO SCH ×2 (08:16→20:18)
[2020-01-24] MEDS: Lisinopril 2.5 MG TAB PO SCH (08:16)
[2020-01-24] MEDS: OXcarbazepine 300 MG TAB PO SCH (08:16)
[2020-01-24] MEDS: methylPREDNISolone Sod Succ 40 MG VIAL IVP SCH ×2 (09:14→22:20)
[2020-01-24] MEDS: Polyethylene Glycol 3350 17 GM Packet PO SCH ×2 (09:14→22:28)
--- NOTE | 2020-01-24 09:50 | PRG ---
DATE OF SERVICE: 01/24/2020 SUBJECTIVE: The patient overall is about the same. He continues to complain of just about everything. OBJECTIVE: VITAL SIGNS: Temperature 97.5, pulse 91, respirations 20, O2 sat was 95% on 76% high-flow oxygen, and blood pressure 117/84. HEENT: Unremarkable. NECK: No adenopathy or JVD. LUNGS: Distant, but clear breath sounds. CARDIAC: S1 and S2, regular. ABDOMEN: Soft. EXTREMITIES: No edema. LABORATORY DATA: Sodium 135, potassium 4.4, chloride 98, CO2 of 27, BUN 25, creatinine 0.9, glucose 142. White blood cell count 16.8, hematocrit 36.1, and platelet count 517. Chest x-ray continues to show bilateral infiltrates-no different from admission. ASSESSMENT: 1. Bilateral pneumonia-so far not improving with antibiotics. 2. Acute hypoxic respiratory failure. PLAN: 1. I am going to get a lower extremity Doppler ultrasound to rule out thromboembolic disease. He has had a negative CT scan at the time of admission for workup for pulmonary emboli. 2. I will add Levaquin for some atypical coverage since he really has nothing that would cover that. 3. He is on steroids, which should cover any type of bronchiolitis obliterans organizing pneumonia or ARDS type situation. Overall, the patient's prognosis is poor. Job ID: [id number]
[2020-01-24] MEDS: Cefepime 2 GM in Sodium Chloride 0.9% 100 ML IVPB SCH ×2 (11:33→23:56)
--- NOTE | 2020-01-24 11:47 | ULT ---
EXAM: Bilateral lower extremity venous Doppler US HISTORY: bilateral lower extremity edema and pain FINDINGS: Grayscale, color-flow, Doppler evaluation, spectral analysis of the bilateral lower extremities venou s structures is performed with 2-D imaging. The bilateral common femoral, superficial femoral, popliteal, posterior tibial, proximal greater saphenous and profunda femoral veins are imaged. There is normal luminal compressibility, flow, and augmentation in the visualized deep venous structu res of the bilateral lower extremities. IMPRESSION: No evidence of a deep vein thrombosis in either lower extremity.
--- NOTE | 2020-01-24 14:55 | PDOC.HOSPP ---
- Subjective Encounter Date: 01/24/20 Subjective: The patient was seen and examined. He is not in any respiratory distress at this time. He requested to get out of bed to sit in the chair for a few hours. - Objective Vital Signs & Weight: Vital Signs (12 hours) Temp Pulse Resp BP Pulse Ox 01/24/20 10:41 86 20 95 01/24/20 08:16 91 01/24/20 08:00 93 L 01/24/20 07:41 97.5 F L 91 20 177/84 H 01/24/20 06:57 92 L 01/24/20 06:54 85 16 92 L Weight Weight 216 lb 11.2 oz Most Recent Monitor Data Heart Rate from ECG 101 NIBP 146/73 NIBP BP-Mean 97 Respiration from ECG 21 SpO2 94 I&O: 01/23/20 01/24/20 01/25/20 06:59 06:59 06:59 Intake Total 1600 950 720 Output Total 1150 1800 Balance 450 -850 720 Result Diagrams: 01/24/20 05:46 01/24/20 05:46 Hospitalist ROS - Medication Medications: Active Medications Generic Name Dose Route Start Last Admin Trade Name Freq PRN Reason Stop Dose Admin Acetaminophen 650 mg 01/15/20 13:32 01/16/20 06:38 Acetaminophen 325 Mg Tab PO 650 mg Q4H PRN Administration Headache/Fever/Mild Pain (1-3) Albuterol/Ipratropium 3 ml 01/21/20 10:30 01/24/20 10:41 Ipratropium/Albuterol Sulfate 3 Ml Neb NEB 3 ml [id number] NEERU Administration Aspirin 325 mg 01/16/20 09:00 01/24/20 08:15 Aspirin 325 Mg Tab PO 325 mg DAILY NEERU Administration Atorvastatin Calcium 20 mg 01/16/20 21:00 01/23/20 21:19 Atorvastatin Calcium 20 Mg Tab PO 20 mg HS NEERU Administration Bisacodyl 10 mg 01/20/20 07:50 01/21/20 08:19 Bisacodyl 5 Mg Tab PO 10 mg DAILYPRN PRN Administration Constipation Carvedilol 3.125 mg 01/23/20 21:00 01/24/20 08:16 Carvedilol 3.125 Mg Tab PO 3.125 mg BID NEERU Administration Enoxaparin Sodium 40 mg 01/22/20 09:00 01/24/20 08:16 Enoxaparin Sodium 40 Mg/0.4 Ml Syringe SC 40 mg 0900 NEERU Administration Guaifenesin 200 mg 01/20/20 07:50 01/20/20 14:09 Diabetic Tussin 200 Mg/10 Ml Udcup PO 200 mg Q4H PRN Administration Cough Guaifenesin 600 mg 01/21/20 21:00 01/24/20 08:16 Guaifenesin Er 600 Mg Tab PO 600 mg Q12HR NEERU Administration Cefepime HCl 2 gm/ Sodium 100 mls @ 200 mls/hr 01/21/20 12:00 01/24/20 11:33 Chloride IVPB 100 mls 1200,2359 NEERU Administration Vancomycin HCl 2 gm/ Sodium 500 mls @ 250 mls/hr 01/23/20 23:00 01/24/20 00:00 Chloride IVPB 500 mls 2300 NEERU Administration Levetiracetam 1,000 mg 01/16/20 09:00 01/24/20 08:15 Levetiracetam 500 Mg Tab PO 1,000 mg QAM NEERU Administration Levetiracetam 1,500 mg 01/16/20 21:00 01/23/20 21:19 Levetiracetam 500 Mg Tab PO 1,500 mg QPM NEERU Administration Levofloxacin 750 mg 01/24/20 09:00 01/24/20 09:14 Levofloxacin 750 Mg Tab PO 750 mg DAILY NEERU Administration Lisinopril 2.5 mg 01/21/20 09:00 01/24/20 08:16 Lisinopril 2.5 Mg Tab PO 2.5 mg DAILY NEERU Administration Methylprednisolone Sodium Succinate 40 mg 01/21/20 10:00 01/24/20 09:14 Methylprednisolone Sod Succ 40 Mg Vial IVP 40 mg Q12H NEERU Administration Oxcarbazepine 600 mg 01/17/20 09:00 01/24/20 08:16 Oxcarbazepine 300 Mg Tab PO 600 mg DAILY NEERU Administration Polyethylene Glycol 17 gm 01/21/20 10:00 01/24/20 09:14 Polyethylene Glycol 3350 17 Gm Packet PO 17 gm Q12H NEERU Administration Sodium Chloride 10 ml 01/20/20 09:00 01/24/20 08:16 Flush - Normal Saline 10 Ml Syringe IVF 10 ml Q12HR NEERU Administration Sodium Chloride 10 ml 01/20/20 08:15 01/23/20 13:56 Flush - Normal Saline 10 Ml Syringe IVF 10 ml PRN PRN Administration Saline Flush Tamsulosin HCl 0.4 mg 01/16/20 09:00 01/24/20 08:15 Tamsulosin Hcl 0.4 Mg Cap PO 0.4 mg DAILY NEERU Administration - Exam General Appearance: awake alert ENT: normocephalic atraumatic Neck: supple, no JVD Heart: RRR Respiratory: normal chest expansion, no tachypnea Neurological: no weakness, no focal deficits Psychiatric: A&O x 3 Hosp A/P - Plan Hosp A/P (1) Acute combined systolic and diastolic congestive heart failure Code(s): I50.41 - ACUTE COMBINED SYSTOLIC AND DIASTOLIC (CONGESTIVE) HRT FAIL Status: Ruled-out (2) Acute respiratory failure with hypoxia Code(s): J96.01 - ACUTE RESPIRATORY FAILURE WITH HYPOXIA Status: Acute (3) Pneumonia Code(s): J18.9 - PNEUMONIA, UNSPECIFIED ORGANISM Status: Acute Qualifiers: Pneumonia type: due to Pneumococcus Laterality: right Lung location: lower lobe of lung Qualified Code(s): J13 - Pneumonia due to Streptococcus pneumoniae (4) Type 2 VT (myocardial infarction) Code(s): I21.A1 - MYOCARDIAL INFARCTION TYPE 2 Status: Acute (5) HTN (hypertension) Code(s): I10 - ESSENTIAL (PRIMARY) HYPERTENSION Status: Chronic Qualifiers: Hypertension type: essential hypertension Qualified Code(s): I10 - Essential (primary) hypertension (6) Seizure disorder Code(s): G40.909 - EPILEPSY, UNSP, NOT INTRACTABLE, WITHOUT STATUS EPILEPTICUS Status: Chronic - Plan Acute respiratory failure with hypoxia due to bilateral pneumonia. Currently the patient is saturating well on FiO2 of 70%. Remains on broad-spectrum IV antibiotics and corticosteroids. Appreciate pulmonology.
[2020-01-24] MEDS: Atorvastatin Calcium 20 MG TAB PO SCH (20:17)
[2020-01-24] MEDS: Guaifenesin DM 100-10/5 ML UDCUP PO PRN (20:18)
[2020-01-25 06:10] LABS: Anion Gap 12 mmol/L (10-20); BUN (Urea Nitrogen) 20 mg/dL (8.4-25.7); Calc. Creatinine Clearance 95 mL/min (70-130); Calcium 9.3 mg/dL (7.8-10.44); Carbon Dioxide 29 mmol/L (23-31); Chloride 100 mmol/L (98-107); Estimated GFR-MDRD 75; Glucose 144 mg/dL (83-110); Potassium 4.5 mmol/L (3.5-5.1); Sodium 136 mmol/L (136-145)
[2020-01-25 06:14] LABS: #Eosinphils 0.1 thou/uL (0.0-0.7); #Lymphocytes 0.9 thou/uL (1.20-3.40); #Monocytes 1.1 thou/uL (0.11-0.59); #Neutrophils 12.9 thou/uL (1.40-6.50); %Basophils 0.1 % (0.0-1.0); %Eosinophils 0.4 % (0.0-10.0); %Monocytes 7.2 % (0.0-10.0); %Neutrophils 86.4 % (42.0-75.0); Hemoglobin 11.9 g/dL (14.0-18.0); Mean Corpuscular Hemoglobin 28.7 pg (27.0-31.0); Mean Corpuscular Volume 89.6 fL (78.0-98.0); Platelet Count 544 thou/uL (130-400); RBC Distribution Width 12.1 % (11.5-14.5); Red Blood Cell (RBC) Count 4.15 mill/uL (4.70-6.10); White Blood Cell (WBC) Count 14.9 thou/uL (4.8-10.8)
[2020-01-25] MEDS: OXcarbazepine 300 MG TAB PO SCH (09:15)
[2020-01-25] MEDS: levETIRAcetam 500 MG TAB PO SCH ×2 (09:16→20:15)
[2020-01-25] MEDS: Aspirin 325 MG TAB PO SCH (09:16)
[2020-01-25] MEDS: Lisinopril 2.5 MG TAB PO SCH (09:16)
[2020-01-25] MEDS: Carvedilol 3.125 MG TAB PO SCH ×2 (09:16→20:14)
[2020-01-25] MEDS: Tamsulosin HCl 0.4 MG CAP PO SCH (09:16)
[2020-01-25] MEDS: guaiFENesin ER 600 MG TAB PO SCH ×2 (09:16→20:14)
[2020-01-25] MEDS: Enoxaparin Sodium 40 MG/0.4 ML SYRINGE SC SCH (09:16)
[2020-01-25] MEDS: methylPREDNISolone Sod Succ 40 MG VIAL IVP SCH ×2 (10:28→20:14)
[2020-01-25] MEDS: Polyethylene Glycol 3350 17 GM Packet PO SCH ×2 (10:28→20:15)
--- NOTE | 2020-01-25 10:56 | PRG ---
DATE OF SERVICE: 01/25/2020 SUBJECTIVE: The patient was sleeping this morning. I did not wake him up. He looked comfortable. OBJECTIVE: VITAL SIGNS: His temperature is 97.7, pulse 73, O2 saturation 97% on 64% high-flow oxygen. HEENT: Unremarkable. NECK: No adenopathy or JVD. LUNGS: Clear anteriorly. CARDIAC: S1 and S2. Regular. ABDOMEN: Soft. EXTREMITIES: No edema. DIAGNOSTIC STUDIES: Doppler of the extremities yesterday showed no evidence of pulmonary emboli. ASSESSMENT: Pneumonia. PLAN: Continue antibiotics and steroids. Wean oxygen as tolerated. I anticipate him needing to remain in the hospital for at least another week. Job ID: [id number]
[2020-01-25] MEDS: Cefepime 2 GM in Sodium Chloride 0.9% 100 ML IVPB SCH (11:27)
--- NOTE | 2020-01-25 12:35 | PDOC.HOSPP ---
- Subjective Encounter Date: 01/25/20 Subjective: No fever over the past 24 hours. No signs of respiratory distress. - Objective Vital Signs & Weight: Vital Signs (12 hours) Temp Pulse Resp BP Pulse Ox 01/25/20 11:00 89 18 97 01/25/20 09:16 73 01/25/20 08:00 98 01/25/20 07:35 97 01/25/20 07:32 73 20 97 01/25/20 07:02 97.7 F 76 16 117/71 98 01/25/20 05:02 97.4 F L 81 18 115/67 96 Weight Admit Weight 216 lb 11.2 oz Weight 216 lb 11.2 oz Most Recent Monitor Data Heart Rate from ECG 101 NIBP 146/73 NIBP BP-Mean 97 Respiration from ECG 21 SpO2 94 I&O: 01/24/20 01/25/20 01/26/20 06:59 06:59 06:59 Intake Total 950 2040 360 Output Total 1800 850 Balance -850 1190 360 Result Diagrams: 01/25/20 05:41 01/25/20 05:41 Hospitalist ROS - Medication Medications: Active Medications Generic Name Dose Route Start Last Admin Trade Name Freq PRN Reason Stop Dose Admin Acetaminophen 650 mg 01/15/20 13:32 01/16/20 06:38 Acetaminophen 325 Mg Tab PO 650 mg Q4H PRN Administration Headache/Fever/Mild Pain (1-3) Albuterol/Ipratropium 3 ml 01/21/20 10:30 01/25/20 11:00 Ipratropium/Albuterol Sulfate 3 Ml Neb NEB 3 ml [id number] NEERU Administration Aspirin 325 mg 01/16/20 09:00 01/25/20 09:16 Aspirin 325 Mg Tab PO 325 mg DAILY NEERU Administration Atorvastatin Calcium 20 mg 01/16/20 21:00 01/24/20 20:17 Atorvastatin Calcium 20 Mg Tab PO 20 mg HS NEERU Administration Bisacodyl 10 mg 01/20/20 07:50 01/21/20 08:19 Bisacodyl 5 Mg Tab PO 10 mg DAILYPRN PRN Administration Constipation Carvedilol 3.125 mg 01/23/20 21:00 01/25/20 09:16 Carvedilol 3.125 Mg Tab PO 3.125 mg BID NEERU Administration Enoxaparin Sodium 40 mg 01/22/20 09:00 01/25/20 09:16 Enoxaparin Sodium 40 Mg/0.4 Ml Syringe SC 40 mg 0900 NEERU Administration Guaifenesin 200 mg 01/20/20 07:50 01/20/20 14:09 Diabetic Tussin 200 Mg/10 Ml Udcup PO 200 mg Q4H PRN Administration Cough Guaifenesin 600 mg 01/21/20 21:00 01/25/20 09:16 Guaifenesin Er 600 Mg Tab PO 600 mg Q12HR NEERU Administration Guaifenesin/Dextromethorphan 15 ml 01/15/20 23:13 01/24/20 20:18 Guaifenesin Dm 100-10/5 Ml Udcup PO 15 ml Q4H PRN Administration Cough Cefepime HCl 2 gm/ Sodium 100 mls @ 200 mls/hr 01/21/20 12:00 01/25/20 11:27 Chloride IVPB 100 mls 1200,2359 NEERU Administration Vancomycin HCl 2 gm/ Sodium 500 mls @ 250 mls/hr 01/23/20 23:00 01/24/20 22:20 Chloride IVPB 500 mls 2300 NEERU Administration Levetiracetam 1,000 mg 01/16/20 09:00 01/25/20 09:16 Levetiracetam 500 Mg Tab PO 1,000 mg QAM NEERU Administration Levetiracetam 1,500 mg 01/16/20 21:00 01/24/20 20:17 Levetiracetam 500 Mg Tab PO 1,500 mg QPM NEERU Administration Levofloxacin 750 mg 01/24/20 09:00 01/25/20 09:16 Levofloxacin 750 Mg Tab PO 750 mg DAILY NEERU Administration Lisinopril 2.5 mg 01/21/20 09:00 01/25/20 09:16 Lisinopril 2.5 Mg Tab PO 2.5 mg DAILY NEERU Administration Methylprednisolone Sodium Succinate 40 mg 01/21/20 10:00 01/25/20 10:28 Methylprednisolone Sod Succ 40 Mg Vial IVP 40 mg Q12H NEERU Administration Oxcarbazepine 600 mg 01/17/20 09:00 01/25/20 09:15 Oxcarbazepine 300 Mg Tab PO 600 mg DAILY NEERU Administration Polyethylene Glycol 17 gm 01/21/20 10:00 01/25/20 10:28 Polyethylene Glycol 3350 17 Gm Packet PO 17 gm Q12H NEERU Administration Sodium Chloride 10 ml 01/20/20 09:00 01/25/20 09:17 Flush - Normal Saline 10 Ml Syringe IVF 10 ml Q12HR NEERU Administration Sodium Chloride 10 ml 01/20/20 08:15 01/23/20 13:56 Flush - Normal Saline 10 Ml Syringe IVF 10 ml PRN PRN Administration Saline Flush Tamsulosin HCl 0.4 mg 01/16/20 09:00 01/25/20 09:16 Tamsulosin Hcl 0.4 Mg Cap PO 0.4 mg DAILY NEERU Administration - Exam ENT: normocephalic atraumatic Neck: supple, no JVD Respiratory: normal chest expansion, rhonchi Extremities: no cyanosis, no clubbing Hosp A/P - Plan Hosp A/P (1) Acute combined systolic and diastolic congestive heart failure Code(s): I50.41 - ACUTE COMBINED SYSTOLIC AND DIASTOLIC (CONGESTIVE) HRT FAIL Status: Ruled-out (2) Acute respiratory failure with hypoxia Code(s): J96.01 - ACUTE RESPIRATORY FAILURE WITH HYPOXIA Status: Acute (3) Pneumonia Code(s): J18.9 - PNEUMONIA, UNSPECIFIED ORGANISM Status: Acute Qualifiers: Pneumonia type: due to Pneumococcus Laterality: right Lung location: low er lobe of lung Qualified Code(s): J13 - Pneumonia due to Streptococcus p neumoniae (4) Type 2 VT (myocardial infarction) Code(s): I21.A1 - MYOCARDIAL INFARCTION TYPE 2 Status: Acute (5) HTN (hypertension) Code(s): I10 - ESSENTIAL (PRIMARY) HYPERTENSION Status: Chronic Qualifiers: Hypertension type: essential hypertension Qualified Code(s): I10 - Essential (primary) hypertension (6) Seizure disorder Code(s): G40.909 - EPILEPSY, UNSP, NOT INTRACTABLE, WITHOUT STATUS EPILEPTICUS Status: Chronic - Plan Acute respiratory failure with hypoxia due to bilateral pneumonia. Leukocytosis improving. He is requiring less oxygen than yesterday with FiO2 of 63. Remains on broad-spectrum IV antibiotics and corticosteroids. Appreciate pulmonology.
[2020-01-25] MEDS: Atorvastatin Calcium 20 MG TAB PO SCH (20:14)
[2020-01-25 22:24] LABS: Vancomycin, Trough 10.2 ug/mL
[2020-01-25] MEDS: Guaifenesin DM 100-10/5 ML UDCUP PO PRN (23:16)
[2020-01-25] MEDS: Vancomycin 1 GM in Premix Bag 1 BAG IVPB SCH (23:17)
[2020-01-26] MEDS: Cefepime 2 GM in Sodium Chloride 0.9% 100 ML IVPB SCH ×2 (01:13→11:22)
[2020-01-26] MEDS: Guaifenesin DM 100-10/5 ML UDCUP PO PRN (04:54)
[2020-01-26 05:42] LABS: #Neutrophils 11.7 thou/uL (1.40-6.50); %Eosinophils 0.3 % (0.0-10.0); %Lymphocytes 7.2 % (21.0-51.0); %Monocytes 7.2 % (0.0-10.0); %Neutrophils 85.3 % (42.0-75.0); Hemoglobin 11.3 g/dL (14.0-18.0); Mean Corpuscular HGB CONC 32.7 g/dL (32.0-36.0); Mean Corpuscular Hemoglobin 29.2 pg (27.0-31.0); Mean Corpuscular Volume 89.3 fL (78.0-98.0); Mean Platelet Volume 7.9 fL (7.4-10.4); Platelet Count 441 thou/uL (130-400); Red Blood Cell (RBC) Count 3.85 mill/uL (4.70-6.10); White Blood Cell (WBC) Count 13.7 thou/uL (4.8-10.8)
[2020-01-26 05:56] LABS: Anion Gap 13 mmol/L (10-20); BUN (Urea Nitrogen) 23 mg/dL (8.4-25.7); Calc. Creatinine Clearance 87 mL/min (70-130); Calcium 9.1 mg/dL (7.8-10.44); Carbon Dioxide 30 mmol/L (23-31); Chloride 96 mmol/L (98-107); Estimated GFR-MDRD 67; Glucose 166 mg/dL (83-110); Potassium 4.4 mmol/L (3.5-5.1); Sodium 135 mmol/L (136-145)
--- NOTE | 2020-01-26 09:20 | PRG ---
DATE OF SERVICE: 01/26/2020 SUBJECTIVE: The patient is actually doing somewhat better compared to previous. OBJECTIVE: VITAL SIGNS: His temperature is 97.6, pulse rate 90, respirations are saturations 95% on 40% high-flow nasal cannula. Blood pressure 157/83. HEENT: Unremarkable. NECK: No JVD. LUNGS: Clear anteriorly for better air movement on the right side. CARDIAC: S1 and S2, regular. ABDOMEN: Soft. EXTREMITIES: No edema. LABORATORY DATA: White blood cell count 13.7, hematocrit 34.4, and platelet count 441. Sodium 135, potassium 4.4, BUN 23, creatinine 1.1, and glucose 166. ASSESSMENT: Slowly improving pneumonia. PLAN: Continue the antibiotics, steroids. I would stop full antibiotics after 7 days of each. He can be weaned out of nasal cannula. He should be ready to go to rehab at any time. Job ID: [id number]
[2020-01-26] MEDS: Carvedilol 3.125 MG TAB PO SCH ×2 (10:12→20:53)
[2020-01-26] MEDS: Aspirin 325 MG TAB PO SCH (10:12)
[2020-01-26] MEDS: Enoxaparin Sodium 40 MG/0.4 ML SYRINGE SC SCH (10:12)
[2020-01-26] MEDS: Lisinopril 2.5 MG TAB PO SCH (10:13)
[2020-01-26] MEDS: guaiFENesin ER 600 MG TAB PO SCH ×2 (10:13→20:53)
[2020-01-26] MEDS: levETIRAcetam 500 MG TAB PO SCH ×2 (10:13→20:53)
[2020-01-26] MEDS: Tamsulosin HCl 0.4 MG CAP PO SCH (10:14)
[2020-01-26] MEDS: methylPREDNISolone Sod Succ 40 MG VIAL IVP SCH ×2 (11:21→20:53)
[2020-01-26] MEDS: OXcarbazepine 300 MG TAB PO SCH (11:21)
[2020-01-26] MEDS: Polyethylene Glycol 3350 17 GM Packet PO SCH ×2 (11:22→22:47)
[2020-01-26] MEDS: Vancomycin 1 GM in Premix Bag 1 BAG IVPB SCH ×2 (11:22→23:33)
--- NOTE | 2020-01-26 13:15 | PDOC.HOSPP ---
- Subjective Encounter Date: 01/26/20 Encounter Time: 10:10 Subjective: He is on high flow oxygen. Plan to be weaned off. "Appears quite ill. Afebrile. He does not have new concerns today. - Objective Vital Signs & Weight: Vital Signs (12 hours) Temp Pulse Resp BP Pulse Ox 01/26/20 11:11 98.5 F 86 18 144/80 H 97 01/26/20 10:24 83 16 93 L 01/26/20 10:13 90 01/26/20 07:37 95 01/26/20 07:35 97.6 F 90 20 157/83 H 92 L 01/26/20 06:44 90 16 96 Weight Admit Weight 216 lb 11.2 oz Weight 216 lb 11.2 oz Most Recent Monitor Data Heart Rate from ECG 101 NIBP 146/73 NIBP BP-Mean 97 Respiration from ECG 21 SpO2 94 I&O: 01/25/20 01/26/20 01/27/20 06:59 06:59 06:59 Intake Total 2040 1560 Output Total 850 1600 Balance 1190 -40 Result Diagrams: 01/26/20 05:24 01/26/20 05:24 Hospitalist ROS - Medication Medications: Active Medications Generic Name Dose Route Start Last Admin Trade Name Freq PRN Reason Stop Dose Admin Acetaminophen 650 mg 01/15/20 13:32 01/16/20 06:38 Acetaminophen 325 Mg Tab PO 650 mg Q4H PRN Administration Headache/Fever/Mild Pain (1-3) Albuterol/Ipratropium 3 ml 01/21/20 10:30 01/26/20 10:24 Ipratropium/Albuterol Sulfate 3 Ml Neb NEB 3 ml [id number] NEERU Administration Aspirin 325 mg 01/16/20 09:00 01/26/20 10:12 Aspirin 325 Mg Tab PO 325 mg DAILY NEERU Administration Atorvastatin Calcium 20 mg 01/16/20 21:00 01/25/20 20:14 Atorvastatin Calcium 20 Mg Tab PO 20 mg HS NEERU Administration Bisacodyl 10 mg 01/20/20 07:50 01/21/20 08:19 Bisacodyl 5 Mg Tab PO 10 mg DAILYPRN PRN Administration Constipation Carvedilol 3.125 mg 01/23/20 21:00 01/26/20 10:12 Carvedilol 3.125 Mg Tab PO 3.125 mg BID NEERU Administration Enoxaparin Sodium 40 mg 01/22/20 09:00 01/26/20 10:12 Enoxaparin Sodium 40 Mg/0.4 Ml Syringe SC 40 mg 0900 NEERU Administration Guaifenesin 200 mg 01/20/20 07:50 01/20/20 14:09 Diabetic Tussin 200 Mg/10 Ml Udcup PO 200 mg Q4H PRN Administration Cough Guaifenesin 600 mg 01/21/20 21:00 01/26/20 10:13 Guaifenesin Er 600 Mg Tab PO 600 mg Q12HR NEERU Administration Guaifenesin/Dextromethorphan 15 ml 01/15/20 23:13 01/26/20 04:54 Guaifenesin Dm 100-10/5 Ml Udcup PO 15 ml Q4H PRN Administration Cough Cefepime HCl 2 gm/ Sodium 100 mls @ 200 mls/hr 01/21/20 12:00 01/26/20 11:22 Chloride IVPB 100 mls 1200,2359 NEERU Administration Vancomycin HCl 1 gm/ Device 200 mls @ 200 mls/hr 01/25/20 23:00 01/26/20 11:22 IVPB 200 mls 1100,2300 NEERU Administration Levetiracetam 1,000 mg 01/16/20 09:00 01/26/20 10:13 Levetiracetam 500 Mg Tab PO 1,000 mg QAM NEERU Administration Levetiracetam 1,500 mg 01/16/20 21:00 01/25/20 20:15 Levetiracetam 500 Mg Tab PO 1,500 mg QPM NEERU Administration Levofloxacin 750 mg 01/24/20 09:00 01/26/20 10:13 Levofloxacin 750 Mg Tab PO 750 mg DAILY NEERU Administration Lisinopril 2.5 mg 01/21/20 09:00 01/26/20 10:13 Lisinopril 2.5 Mg Tab PO 2.5 mg DAILY NEERU Administration Methylprednisolone Sodium Succinate 40 mg 01/21/20 10:00 01/26/20 11:21 Methylprednisolone Sod Succ 40 Mg Vial IVP 40 mg Q12H NEERU Administration Oxcarbazepine 600 mg 01/17/20 09:00 01/26/20 11:21 Oxcarbazepine 300 Mg Tab PO 600 mg DAILY NEERU Administration Polyethylene Glycol 17 gm 01/21/20 10:00 01/26/20 11:22 Polyethylene Glycol 3350 17 Gm Packet PO 17 gm Q12H NEERU Administration Sodium Chloride 10 ml 01/20/20 09:00 01/26/20 10:14 Flush - Normal Saline 10 Ml Syringe IVF 10 ml Q12HR NEERU Administration Sodium Chloride 10 ml 01/20/20 08:15 01/23/20 13:56 Flush - Normal Saline 10 Ml Syringe IVF 10 ml PRN PRN Administration Saline Flush Tamsulosin HCl 0.4 mg 01/16/20 09:00 01/26/20 10:14 Tamsulosin Hcl 0.4 Mg Cap PO 0.4 mg DAILY NEERU Administration Temazepam 15 mg 01/20/20 07:50 01/25/20 20:14 Temazepam 15 Mg Cap PO 15 mg HSPRN PRN Administration Insomnia - Exam General Appearance: NAD, awake alert, ill appearing Eye: PERRL ENT: normocephalic atraumatic Neck: supple Heart: RRR Respiratory: CTAB, normal chest expansion Gastrointestinal: soft, normal bowel sounds Neurological: cranial nerve grossly intact, no focal deficits Psychiatric: A&O x 3 Hosp A/P - Plan (1) Acute combined systolic and diastolic congestive heart failure Code(s): I50.41 - ACUTE COMBINED SYSTOLIC AND DIASTOLIC (CONGESTIVE) HRT FAIL Status: Ruled-out (2) Acute respiratory failure with hypoxia Code(s): J96.01 - ACUTE RESPIRATORY FAILURE WITH HYPOXIA Status: Acute (3) Pneumonia Code(s): J18.9 - PNEUMONIA, UNSPECIFIED ORGANISM Status: Acute Qualifiers: Pneumonia type: due to Pneumococcus Laterality: right Lung location: lower lobe of lung Qualified Code(s): J13 - Pneumonia due to Streptococcus pneumoniae (4) Type 2 [place] (myocardial infarction) Code(s): I21.A1 - MYOCARDIAL INFARCTION TYPE 2 Status: Acute (5) HTN (hypertension) Code(s): I10 - ESSENTIAL (PRIMARY) HYPERTENSION Status: Chronic Qualifiers: Hypertension type: essential hypertension Qualified Code(s): I10 - Essential (primary) hypertension (6) Seizure disorder Code(s): G40.909 - EPILEPSY, UNSP, NOT INTRACTABLE, WITHOUT STATUS EPILEPTICUS Status: Chronic Community-acquired pneumonia Acute respiratory failure with hypoxia due to bilateral pneumonia. Hypoxia seems to be improving-- on high flow oxygen with 93% sat.--Plan to be weaned off Urine culture of show mixed benigno Flu test was negative. Blood cultures negative. -He is on cefepime, which is started on . Since cultures negative and clinically getting better we will stop the IV cefepime time and continue with Levaquin. Pulmonary rehab when able.
[2020-01-26] MEDS: Atorvastatin Calcium 20 MG TAB PO SCH (20:54)
[2020-01-26] MEDS: Diabetic Tussin 200 MG/10 ML UDCUP PO PRN (22:33)
[2020-01-27 06:48] LABS: #Eosinphils 0.1 thou/uL (0.0-0.7); #Lymphocytes 1.3 thou/uL (1.20-3.40); #Monocytes 1.3 thou/uL (0.11-0.59); #Neutrophils 15.1 thou/uL (1.40-6.50); %Basophils 0.1 % (0.0-1.0); %Eosinophils 0.5 % (0.0-10.0); %Lymphocytes 7.1 % (21.0-51.0); %Monocytes 7.5 % (0.0-10.0); %Neutrophils 84.8 % (42.0-75.0); Hemoglobin 11.7 g/dL (14.0-18.0); Mean Corpuscular HGB CONC 32.7 g/dL (32.0-36.0); Mean Corpuscular Hemoglobin 29.1 pg (27.0-31.0); Mean Corpuscular Volume 88.7 fL (78.0-98.0); Mean Platelet Volume 8.1 fL (7.4-10.4); Platelet Count 462 thou/uL (130-400); RBC Distribution Width 12.1 % (11.5-14.5); Red Blood Cell (RBC) Count 4.03 mill/uL (4.70-6.10); White Blood Cell (WBC) Count 17.8 thou/uL (4.8-10.8)
[2020-01-27 07:12] LABS: Anion Gap 13 mmol/L (10-20); BUN (Urea Nitrogen) 22 mg/dL (8.4-25.7); Calc. Creatinine Clearance 101 mL/min (70-130); Calcium 9.1 mg/dL (7.8-10.44); Carbon Dioxide 31 mmol/L (23-31); Chloride 94 mmol/L (98-107); Estimated GFR-MDRD 80; Glucose 118 mg/dL (83-110); Potassium 4.3 mmol/L (3.5-5.1); Sodium 134 mmol/L (136-145)
[2020-01-27] MEDS: Aspirin 325 MG TAB PO SCH (09:43)
[2020-01-27] MEDS: Lisinopril 2.5 MG TAB PO SCH (09:43)
[2020-01-27] MEDS: OXcarbazepine 300 MG TAB PO SCH (09:43)
[2020-01-27] MEDS: guaiFENesin ER 600 MG TAB PO SCH ×2 (09:43→20:14)
[2020-01-27] MEDS: Carvedilol 3.125 MG TAB PO SCH ×2 (09:43→20:14)
[2020-01-27] MEDS: Tamsulosin HCl 0.4 MG CAP PO SCH (09:43)
[2020-01-27] MEDS: Enoxaparin Sodium 40 MG/0.4 ML SYRINGE SC SCH (09:44)
[2020-01-27] MEDS: methylPREDNISolone Sod Succ 40 MG VIAL IVP SCH (09:44)
[2020-01-27] MEDS: Polyethylene Glycol 3350 17 GM Packet PO SCH ×2 (09:45→20:14)
[2020-01-27] MEDS: levETIRAcetam 500 MG TAB PO SCH ×2 (09:50→20:13)
[2020-01-27 10:53] LABS: Vancomycin, Trough 19.4 ug/mL
[2020-01-27] MEDS: Vancomycin 1 GM in Premix Bag 1 BAG IVPB SCH (11:23)
--- NOTE | 2020-01-27 12:15 | PDOC.HOSPP ---
- Subjective Encounter Date: 01/27/20 Encounter Time: 09:40 Subjective: Patient is still on a T-piece high flow oxygen and satting at 95%. He lives alone for the most part of the time. He is wondering whether he can get home oxygen to use at nighttime. He is also like to see rehab if possible. No respiratory distress with ambulation. - Objective Vital Signs & Weight: Vital Signs (12 hours) Temp Pulse Resp BP BP Pulse Ox 01/27/20 12:01 97.6 F 93 20 128/76 95 01/27/20 09:43 80 134/80 01/27/20 07:41 97.8 F 80 20 134/80 94 L Weight Admit Weight 216 lb 11.2 oz Weight 216 lb 11.2 oz Most Recent Monitor Data Heart Rate from ECG 101 NIBP 146/73 NIBP BP-Mean 97 Respiration from ECG 21 SpO2 94 I&O: 01/26/20 01/27/20 01/28/20 06:59 06:59 05:59 Intake Total 1560 1750 Output Total 1600 950 Balance -40 800 Result Diagrams: 01/27/20 06:05 01/27/20 06:06 Hospitalist ROS - Medication Medications: Active Medications Generic Name Dose Route Start Last Admin Trade Name Freq PRN Reason Stop Dose Admin Acetaminophen 650 mg 01/15/20 13:32 01/16/20 06:38 Acetaminophen 325 Mg Tab PO 650 mg Q4H PRN Administration Headache/Fever/Mild Pain (1-3) Albuterol/Ipratropium 3 ml 01/21/20 10:30 01/27/20 10:20 Ipratropium/Albuterol Sulfate 3 Ml Neb NEB 3 ml [id number] NEERU Administration Aspirin 325 mg 01/16/20 09:00 01/27/20 09:43 Aspirin 325 Mg Tab PO 325 mg DAILY NEERU Administration Atorvastatin Calcium 20 mg 01/16/20 21:00 01/26/20 20:54 Atorvastatin Calcium 20 Mg Tab PO 20 mg HS NEERU Administration Bisacodyl 10 mg 01/20/20 07:50 01/21/20 08:19 Bisacodyl 5 Mg Tab PO 10 mg DAILYPRN PRN Administration Constipation Carvedilol 3.125 mg 01/23/20 21:00 01/27/20 09:43 Carvedilol 3.125 Mg Tab PO 3.125 mg BID NEERU Administration Enoxaparin Sodium 40 mg 01/22/20 09:00 01/27/20 09:44 Enoxaparin Sodium 40 Mg/0.4 Ml Syringe SC 40 mg 0900 NEERU Administration Guaifenesin 200 mg 01/20/20 07:50 01/26/20 22:33 Diabetic Tussin 200 Mg/10 Ml Udcup PO 200 mg Q4H PRN Administration Cough Guaifenesin 600 mg 01/21/20 21:00 01/27/20 09:43 Guaifenesin Er 600 Mg Tab PO 600 mg Q12HR NEERU Administration Guaifenesin/Dextromethorphan 15 ml 01/15/20 23:13 01/26/20 04:54 Guaifenesin Dm 100-10/5 Ml Udcup PO 15 ml Q4H PRN Administration Cough Levetiracetam 1,000 mg 01/16/20 09:00 01/27/20 09:50 Levetiracetam 500 Mg Tab PO 1,000 mg QAM NEERU Administration Levetiracetam 1,500 mg 01/16/20 21:00 01/26/20 20:53 Levetiracetam 500 Mg Tab PO 1,500 mg QPM NEERU Administration Levofloxacin 750 mg 01/24/20 09:00 01/27/20 09:43 Levofloxacin 750 Mg Tab PO 750 mg DAILY NEERU Administration Lisinopril 2.5 mg 01/21/20 09:00 01/27/20 09:43 Lisinopril 2.5 Mg Tab PO 2.5 mg DAILY NEERU Administration Oxcarbazepine 600 mg 01/17/20 09:00 01/27/20 09:43 Oxcarbazepine 300 Mg Tab PO 600 mg DAILY NEERU Administration Polyethylene Glycol 17 gm 01/21/20 10:00 01/27/20 09:45 Polyethylene Glycol 3350 17 Gm Packet PO Not Given Q12H NEERU Sodium Chloride 10 ml 01/20/20 09:00 01/27/20 09:44 Flush - Normal Saline 10 Ml Syringe IVF 10 ml Q12HR NEERU Administration Sodium Chloride 10 ml 01/20/20 08:15 01/23/20 13:56 Flush - Normal Saline 10 Ml Syringe IVF 10 ml PRN PRN Administration Saline Flush Tamsulosin HCl 0.4 mg 01/16/20 09:00 01/27/20 09:43 Tamsulosin Hcl 0.4 Mg Cap PO 0.4 mg DAILY NEERU Administration Temazepam 15 mg 01/20/20 07:50 01/25/20 20:14 Temazepam 15 Mg Cap PO 15 mg HSPRN PRN Administration Insomnia - Exam General Appearance: NAD, awake alert Eye: PERRL ENT: normocephalic atraumatic Neck: supple Heart: RRR Respiratory: CTAB, normal chest expansion Gastrointestinal: soft, normal bowel sounds Neurological: cranial nerve grossly intact, no focal deficits Psychiatric: A&O x 3 Hosp A/P - Plan (1) Acute combined systolic and diastolic congestive heart failure Code(s): I50.41 - ACUTE COMBINED SYSTOLIC AND DIASTOLIC (CONGESTIVE) HRT FAIL Status: Ruled-out (2) Acute respiratory failure with hypoxia Code(s): J96.01 - ACUTE RESPIRATORY FAILURE WITH HYPOXIA Status: Acute (3) Pneumonia Code(s): J18.9 - PNEUMONIA, UNSPECIFIED ORGANISM Status: Acute Qualifiers: Pneumonia type: due to Pneumococcus Laterality: right Lung location: lower lobe of lung Qualified Code(s): J13 - Pneumonia due to Streptococcus pneumoniae (4) Type 2 [place] (myocardial infarction) Code(s): I21.A1 - MYOCARDIAL INFARCTION TYPE 2 Status: Acute (5) HTN (hypertension) Code(s): I10 - ESSENTIAL (PRIMARY) HYPERTENSION Status: Chronic Qualifiers: Hypertension type: essential hypertension Qualified Code(s): I10 - Essential (primary) hypertension (6) Seizure disorder Code(s): G40.909 - EPILEPSY, UNSP, NOT INTRACTABLE, WITHOUT STATUS EPILEPTICUS Status: Chronic Community-acquired pneumonia Acute respiratory failure with hypoxia due to bilateral pneumonia. Hypoxia seems to be improving-- on high flow oxygen with 93% sat.--Plan to be weaned off Urine culture of show mixed benigno Flu test was negative. Blood cultures negative. -He is on cefepime, which is started on . Since cultures negative and clinically getting better we will stop the IV cefepime time and continue with Lida greene. Pulmonary rehab when able. We will check his ambulatory oxygen status and whether he would be qualified for home oxygen.
--- NOTE | 2020-01-27 17:42 | PRG ---
DATE OF SERVICE: 01/27/2020 SUBJECTIVE: Mr. Catherine continues to complain of significant breathlessness, which has been present for at least a month. He does not think that he is dramatically improved and unfortunately continues to require supplemental oxygen, 45% high-flow nasal cannula. He denies cough or sputum. He has not had any hemoptysis. He has not been able to begin much ambulation because he states he is having swelling on the soles of his feet, which make his feet feel heavy and difficulty with sensing position or ambulating. OBJECTIVE: VITAL SIGNS: Blood pressure 128/76. He is afebrile. Heart rate is 93, saturation 95%. GENERAL: He is alert and oriented, but a typical grumpy old man with moderate dyspnea. He denies cough or sputum. LUNGS: Show rhonchi, but no wheezing. HEART: Regular rate and rhythm. EXTREMITIES: I do not appreciate significant lower extremity edema. LABORATORY DATA: White count 17,800, hemoglobin is 11.7, and platelet count 462,000. Chemistries notable for sodium 134, potassium 4.3, chloride 94, CO2 is 31, BUN 22, creatinine 0.9. He has not had a recent chest x-ray. However, his previous films showed dense bilateral infiltrates and chronic elevation of the left hemidiaphragm. His COVID swabs have been negative. IMPRESSION: Bilateral pneumonia, somewhat suggestive for COVID, however, PCR negative x2. He remains on supplemental oxygen at 45%. PLAN: We will continue current supportive therapies. I suspect that by the time we get him to an acceptable oxygen level, he is going to need a rehab stay prior to returning home. Job ID: [id number]
[2020-01-27] MEDS: Atorvastatin Calcium 20 MG TAB PO SCH (20:13)
[2020-01-28 06:43] LABS: #Eosinphils 1.6 thou/uL (0.0-0.7); #Lymphocytes 1.5 thou/uL (1.20-3.40); #Monocytes 1.5 thou/uL (0.11-0.59); #Neutrophils 14.9 thou/uL (1.40-6.50); %Basophils 0.2 % (0.0-1.0); %Eosinophils 8.4 % (0.0-10.0); %Lymphocytes 7.7 % (21.0-51.0); %Monocytes 7.8 % (0.0-10.0); %Neutrophils 75.9 % (42.0-75.0); Hemoglobin 11.6 g/dL (14.0-18.0); Mean Corpuscular HGB CONC 32.8 g/dL (32.0-36.0); Mean Corpuscular Hemoglobin 29.1 pg (27.0-31.0); Mean Corpuscular Volume 88.8 fL (78.0-98.0); Platelet Count 451 thou/uL (130-400); RBC Distribution Width 12.4 % (11.5-14.5); Red Blood Cell (RBC) Count 3.97 mill/uL (4.70-6.10); White Blood Cell (WBC) Count 19.7 thou/uL (4.8-10.8)
[2020-01-28 07:09] LABS: Anion Gap 13 mmol/L (10-20); BUN (Urea Nitrogen) 19 mg/dL (8.4-25.7); Calc. Creatinine Clearance 99 mL/min (70-130); Calcium 8.7 mg/dL (7.8-10.44); Carbon Dioxide 32 mmol/L (23-31); Chloride 93 mmol/L (98-107); Estimated GFR-MDRD 78; Glucose 96 mg/dL (83-110); Potassium 4.4 mmol/L (3.5-5.1); Sodium 134 mmol/L (136-145)
[2020-01-28] MEDS ORDERED: Dexamethasone 4 MG TAB PO SCH (08:00)
[2020-01-28] MEDS: guaiFENesin ER 600 MG TAB PO SCH ×2 (08:43→20:15)
[2020-01-28] MEDS: Aspirin 325 MG TAB PO SCH (08:43)
[2020-01-28] MEDS: Tamsulosin HCl 0.4 MG CAP PO SCH (08:44)
[2020-01-28] MEDS: OXcarbazepine 300 MG TAB PO SCH (08:44)
[2020-01-28] MEDS: Carvedilol 3.125 MG TAB PO SCH ×2 (08:44→20:14)
[2020-01-28] MEDS: Lisinopril 2.5 MG TAB PO SCH (08:44)
[2020-01-28] MEDS: levETIRAcetam 500 MG TAB PO SCH ×2 (08:44→20:15)
[2020-01-28] MEDS: Enoxaparin Sodium 40 MG/0.4 ML SYRINGE SC SCH (08:45)
[2020-01-28] MEDS: Polyethylene Glycol 3350 17 GM Packet PO SCH ×2 (08:45→20:21)
--- NOTE | 2020-01-28 13:06 | PDOC.HOSPP ---
- Subjective Encounter Date: 01/28/20 Encounter Time: 09:30 Subjective: Patient seen and examined this morning. He has no acute complaints. He is still on high flow oxygen by T-piece. This morning his oxygen sat dropped to 88% and blood pressure normotensive. We are not able to wean him off the high flow oxygen at this point. We are still continuing with IV methylprednisolone along with the Levaquin. - Objective Vital Signs & Weight: Vital Signs (12 hours) Temp Pulse Resp BP BP Pulse Ox 01/28/20 11:26 97.9 F 106 H 18 104/68 88 L 01/28/20 09:57 89 20 90 L 01/28/20 08:44 85 130/78 01/28/20 06:29 85 16 92 L Weight Admit Weight 216 lb 11.2 oz Weight 216 lb 11.2 oz Most Recent Monitor Data Heart Rate from ECG 101 NIBP 146/73 NIBP BP-Mean 97 Respiration from ECG 21 SpO2 94 I&O: 01/27/20 01/28/20 01/29/20 07:59 06:59 06:59 Intake Total Output Total Balance Result Diagrams: 01/28/20 06:23 01/28/20 06:23 Hospitalist ROS - Medication Medications: Active Medications Generic Name Dose Route Start Last Admin Trade Name Freq PRN Reason Stop Dose Admin Acetaminophen 650 mg 01/15/20 13:32 01/16/20 06:38 Acetaminophen 325 Mg Tab PO 650 mg Q4H PRN Administration Headache/Fever/Mild Pain (1-3) Albuterol/Ipratropium 3 ml 01/21/20 10:30 01/28/20 09:57 Ipratropium/Albuterol Sulfate 3 Ml Neb NEB 3 ml [id number] NEERU Administration Aspirin 325 mg 01/16/20 09:00 01/28/20 08:43 Aspirin 325 Mg Tab PO 325 mg DAILY NEERU Administration Atorvastatin Calcium 20 mg 01/16/20 21:00 01/27/20 20:13 Atorvastatin Calcium 20 Mg Tab PO 20 mg HS NEERU Administration Bisacodyl 10 mg 01/20/20 07:50 01/21/20 08:19 Bisacodyl 5 Mg Tab PO 10 mg DAILYPRN PRN Administration Constipation Carvedilol 3.125 mg 01/23/20 21:00 01/28/20 08:44 Carvedilol 3.125 Mg Tab PO 3.125 mg BID NEERU Administration Enoxaparin Sodium 40 mg 01/22/20 09:00 01/28/20 08:45 Enoxaparin Sodium 40 Mg/0.4 Ml Syringe SC 40 mg 0900 NEERU Administration Guaifenesin 200 mg 01/20/20 07:50 01/26/20 22:33 Diabetic Tussin 200 Mg/10 Ml Udcup PO 200 mg Q4H PRN Administration Cough Guaifenesin 600 mg 01/21/20 21:00 01/28/20 08:43 Guaifenesin Er 600 Mg Tab PO 600 mg Q12HR NEERU Administration Guaifenesin/Dextromethorphan 15 ml 01/15/20 23:13 01/26/20 04:54 Guaifenesin Dm 100-10/5 Ml Udcup PO 15 ml Q4H PRN Administration Cough Levetiracetam 1,000 mg 01/16/20 09:00 01/28/20 08:44 Levetiracetam 500 Mg Tab PO 1,000 mg QAM NEERU Administration Levetiracetam 1,500 mg 01/16/20 21:00 01/27/20 20:13 Levetiracetam 500 Mg Tab PO 1,500 mg QPM NEERU Administration Levofloxacin 750 mg 01/24/20 09:00 01/28/20 08:43 Levofloxacin 750 Mg Tab PO 750 mg DAILY NEERU Administration Lisinopril 2.5 mg 01/21/20 09:00 01/28/20 08:44 Lisinopril 2.5 Mg Tab PO 2.5 mg DAILY NEERU Administration Oxcarbazepine 600 mg 01/17/20 09:00 01/28/20 08:44 Oxcarbazepine 300 Mg Tab PO 600 mg DAILY NEERU Administration Polyethylene Glycol 17 gm 01/21/20 10:00 01/28/20 08:45 Polyethylene Glycol 3350 17 Gm Packet PO Not Given Q12H NEERU Sodium Chloride 10 ml 01/20/20 09:00 01/28/20 08:45 Flush - Normal Saline 10 Ml Syringe IVF Not Given Q12HR NEERU Sodium Chloride 10 ml 01/20/20 08:15 01/23/20 13:56 Flush - Normal Saline 10 Ml Syringe IVF 10 ml PRN PRN Administration Saline Flush Tamsulosin HCl 0.4 mg 01/16/20 09:00 01/28/20 08:44 Tamsulosin Hcl 0.4 Mg Cap PO 0.4 mg DAILY NEERU Administration Temazepam 15 mg 01/20/20 07:50 01/25/20 20:14 Temazepam 15 Mg Cap PO 15 mg HSPRN PRN Administration Insomnia - Exam General Appearance: NAD, awake alert Eye: PERRL ENT: normocephalic atraumatic Neck: supple Heart: RRR Respiratory: CTAB Gastrointestinal: soft, normal bowel sounds Neurological: cranial nerve grossly intact, no focal deficits Psychiatric: A&O x 3 Hosp A/P - Plan (1) Acute combined systolic and diastolic congestive heart failure Code(s): I50.41 - ACUTE COMBINED SYSTOLIC AND DIASTOLIC (CONGESTIVE) HRT FAIL Status: Ruled-out (2) Acute respiratory failure with hypoxia Code(s): J96.01 - ACUTE RESPIRATORY FAILURE WITH HYPOXIA Status: Acute (3) Pneumonia Code(s): J18.9 - PNEUMONIA, UNSPECIFIED ORGANISM Status: Acute Qualifiers: Pneumonia type: due to Pneumococcus Laterality: right Lung location: lower lobe of lung Qualified Code(s): J13 - Pneumonia due to Streptococcus pneumoniae (4) Type 2 [place] (myocardial infarction) Code(s): I21.A1 - MYOCARDIAL INFARCTION TYPE 2 Status: Acute (5) HTN (hypertension) Code(s): I10 - ESSENTIAL (PRIMARY) HYPERTENSION Status: Chronic Qualifiers: Hypertension type: essential hypertension Qualified Code(s): I10 - Essential (primary) hypertension (6) Seizure disorder Code(s): G40.909 - EPILEPSY, UNSP, NOT INTRACTABLE, WITHOUT STATUS EPILEPTICUS Status: Chronic Community-acquired pneumonia Acute respiratory failure with hypoxia due to bilateral pneumonia. Hypoxia seems to be improving-- on high flow oxygen with 93% sat.--Plan to be weaned off Urine culture of show mixed benigno Flu test was negative. Blood cultures negative. -He is on cefepime, which is started on . Since cultures negative and clinically getting better we will stop the IV cefepime time and continue with Levaquin. Pulmonary rehab when able. We will check his ambulatory oxygen status and whether he would be qualified for home oxygen. 1st Persistent hypoxemia -spite ongoing IV steroid and antibiotics -Difficult to wean him off from high flow oxygen. When we checked the oxygen status without supplemental oxygen, even just sitting on the bed his oxygen sats dropped significantly in the lower 80s. Leukocytosis with upward trending -He is on Levaquin his elevated white count today probably due to ongoing steroid use. Patient would not be able to go home with the above scenario, even though he likes to do that. He definitely needs pulmonary rehab.
--- NOTE | 2020-01-28 17:15 | PRG ---
DATE OF SERVICE: 01/28/2020 SUBJECTIVE: Mr. Catherine is really not any different. He is quite grumpy and difficult to deal with. He is still quite short of breath, speaking in just a couple word groups. He is still requiring high-flow nasal cannula at 45%. He is refusing consideration of skilled/rehab stating that he wants to go home on whatever oxygen is available to receive therapy and visiting nurses on an outpatient basis. I have tried to rationalize with him that his current oxygen demands cannot be met in the home setting. PHYSICAL EXAMINATION: VITAL SIGNS: Blood pressure 132/81, saturation 90% on high-flow oxygen at 45%, respiratory rate 16, he is afebrile, heart rate is 94. LUNGS: He has coarse rales bilaterally. There is no wheezing. He is moderately short of breath with increased work of breathing and short sentences. HEART: Regular rate and rhythm. ABDOMEN: Obese. EXTREMITIES: He has no edema. LABORATORY DATA: White count today 19,000, hemoglobin is 11.6 with hematocrit of 35.3, and platelet count of 451,000. Electrolytes include sodium 134, potassium 4.4, chloride 93, CO2 of 32, BUN 19, and creatinine 0.95. He did not have an x-ray today. IMPRESSION: Severe dyspnea with a combination of underlying lung disease including chronic obstructive pulmonary disease and possible interstitial lung disease compounded by pneumonia and heart failure. All of these have him to the point that he is requiring high-flow nasal oxygen beyond the scope of regular home care. He has not shown any improvement of note in the last several days despite aggressive in-hospital therapy. PLAN: We will continue current therapies, although the patient is adamantly opposed to consideration of skilled or rehab. Job ID: [id number]
[2020-01-28] MEDS: Atorvastatin Calcium 20 MG TAB PO SCH (20:12)
[2020-01-28] MEDS: methylPREDNISolone Sod Succ 40 MG VIAL IVP SCH (20:21)
[2020-01-29 06:08] LABS: #Eosinphils 0.2 thou/uL (0.0-0.7); #Lymphocytes 1.1 thou/uL (1.20-3.40); #Neutrophils 15.1 thou/uL (1.40-6.50); %Basophils 0.1 % (0.0-1.0); %Eosinophils 1.1 % (0.0-10.0); %Lymphocytes 6.3 % (21.0-51.0); %Monocytes 5.8 % (0.0-10.0); %Neutrophils 86.7 % (42.0-75.0); Hemoglobin 11.7 g/dL (14.0-18.0); Mean Corpuscular HGB CONC 32.9 g/dL (32.0-36.0); Mean Corpuscular Hemoglobin 29.2 pg (27.0-31.0); Mean Corpuscular Volume 88.6 fL (78.0-98.0); Mean Platelet Volume 8.1 fL (7.4-10.4); Platelet Count 433 thou/uL (130-400); RBC Distribution Width 12.4 % (11.5-14.5); White Blood Cell (WBC) Count 17.4 thou/uL (4.8-10.8)
[2020-01-29 06:29] LABS: Anion Gap 12 mmol/L (10-20); BUN (Urea Nitrogen) 19 mg/dL (8.4-25.7); Calc. Creatinine Clearance 99 mL/min (70-130); Calcium 8.9 mg/dL (7.8-10.44); Carbon Dioxide 32 mmol/L (23-31); Chloride 92 mmol/L (98-107); Estimated GFR-MDRD 78; Glucose 123 mg/dL (83-110); Potassium 4.3 mmol/L (3.5-5.1); Sodium 132 mmol/L (136-145)
[2020-01-29] MEDS: methylPREDNISolone Sod Succ 40 MG VIAL IVP SCH (08:35)
[2020-01-29] MEDS: Enoxaparin Sodium 40 MG/0.4 ML SYRINGE SC SCH (08:35)
[2020-01-29] MEDS: levETIRAcetam 500 MG TAB PO SCH ×2 (08:35→20:31)
[2020-01-29] MEDS: OXcarbazepine 300 MG TAB PO SCH (08:35)
[2020-01-29] MEDS: Lisinopril 2.5 MG TAB PO SCH (08:36)
[2020-01-29] MEDS: Tamsulosin HCl 0.4 MG CAP PO SCH (08:36)
[2020-01-29] MEDS: Polyethylene Glycol 3350 17 GM Packet PO SCH ×2 (08:36→20:33)
[2020-01-29] MEDS: Aspirin 325 MG TAB PO SCH (08:36)
[2020-01-29] MEDS: Carvedilol 3.125 MG TAB PO SCH ×2 (08:36→20:33)
[2020-01-29] MEDS: guaiFENesin ER 600 MG TAB PO SCH ×2 (08:36→20:32)
--- NOTE | 2020-01-29 12:50 | PRG ---
DATE OF SERVICE: 01/29/2020 SUBJECTIVE: Carroll Catherine states he is on high-flow. OBJECTIVE: VITAL SIGNS: Saturations 91%, temperature 97, , blood pressure 136/84. CHEST: Crackles. No wheezing. CARDIAC: Normal S1 and S2. No gallops. ABDOMEN: No masses. LABORATORY DATA: White count 17,000. Cultures negative. ASSESSMENT: Bilateral bronchopneumonia, respiratory failure, chronic obstructive pulmonary disease. PLAN: Switch him over to p.o. prednisone. Continue Levaquin, neb treatments, supportive care. Hopefully, once a transition to low-flow O2, he can be discharged to step-down unit. Job ID: [id number]
--- NOTE | 2020-01-29 13:13 | PDOC.HOSPP ---
- Subjective Encounter Date: 01/29/20 Encounter Time: 09:50 Subjective: Patient still frustrated by for being here. He could not come out of high flow oxygen. He is resting but he does have some shortness of breath even at rest. Pulmonary recommended switch him to p.o. steroid. He is also started on doxycycline. - Objective Vital Signs & Weight: Vital Signs (12 hours) Temp Pulse Resp BP BP Pulse Ox 01/29/20 11:33 91 L 01/29/20 11:30 84 28 H 91 L 01/29/20 11:10 89 22 H 136/84 90 L 01/29/20 08:36 82 132/81 01/29/20 08:00 92 L 01/29/20 06:58 97.9 F 82 18 132/81 92 L Weight Admit Weight 216 lb 11.2 oz Weight 216 lb 11.2 oz Most Recent Monitor Data Heart Rate from ECG 101 NIBP 146/73 NIBP BP-Mean 97 Respiration from ECG 21 SpO2 94 I&O: 01/28/20 01/29/20 01/30/20 06:59 06:59 06:59 Intake Total 2000 Output Total 1400 Balance 600 Result Diagrams: 01/29/20 05:29 01/29/20 05:29 Hospitalist ROS - Medication Medications: Active Medications Generic Name Dose Route Start Last Admin Trade Name Freq PRN Reason Stop Dose Admin Acetaminophen 650 mg 01/15/20 13:32 01/16/20 06:38 Acetaminophen 325 Mg Tab PO 650 mg Q4H PRN Administration Headache/Fever/Mild Pain (1-3) Albuterol/Ipratropium 3 ml 01/21/20 10:30 01/29/20 11:30 Ipratropium/Albuterol Sulfate 3 Ml Neb NEB 3 ml [id number] NEERU Administration Aspirin 325 mg 01/16/20 09:00 01/29/20 08:36 Aspirin 325 Mg Tab PO 325 mg DAILY NEERU Administration Atorvastatin Calcium 20 mg 01/16/20 21:00 01/28/20 20:12 Atorvastatin Calcium 20 Mg Tab PO 20 mg HS NEERU Administration Bisacodyl 10 mg 01/20/20 07:50 01/21/20 08:19 Bisacodyl 5 Mg Tab PO 10 mg DAILYPRN PRN Administration Constipation Carvedilol 3.125 mg 01/23/20 21:00 01/29/20 08:36 Carvedilol 3.125 Mg Tab PO 3.125 mg BID NEERU Administration Enoxaparin Sodium 40 mg 01/22/20 09:00 01/29/20 08:35 Enoxaparin Sodium 40 Mg/0.4 Ml Syringe SC 40 mg 0900 NEERU Administration Guaifenesin 200 mg 01/20/20 07:50 01/26/20 22:33 Diabetic Tussin 200 Mg/10 Ml Udcup PO 200 mg Q4H PRN Administration Cough Guaifenesin 600 mg 01/21/20 21:00 01/29/20 08:36 Guaifenesin Er 600 Mg Tab PO 600 mg Q12HR NEERU Administration Guaifenesin/Dextromethorphan 15 ml 01/15/20 23:13 01/26/20 04:54 Guaifenesin Dm 100-10/5 Ml Udcup PO 15 ml Q4H PRN Administration Cough Levetiracetam 1,000 mg 01/16/20 09:00 01/29/20 08:35 Levetiracetam 500 Mg Tab PO 1,000 mg QAM NEERU Administration Levetiracetam 1,500 mg 01/16/20 21:00 01/28/20 20:15 Levetiracetam 500 Mg Tab PO 1,500 mg QPM NEERU Administration Levofloxacin 750 mg 01/24/20 09:00 01/29/20 08:36 Levofloxacin 750 Mg Tab PO 750 mg DAILY NEERU Administration Lisinopril 2.5 mg 01/21/20 09:00 01/29/20 08:36 Lisinopril 2.5 Mg Tab PO 2.5 mg DAILY NEERU Administration Oxcarbazepine 600 mg 01/17/20 09:00 01/29/20 08:35 Oxcarbazepine 300 Mg Tab PO 600 mg DAILY NEERU Administration Polyethylene Glycol 17 gm 01/21/20 10:00 01/29/20 08:36 Polyethylene Glycol 3350 17 Gm Packet PO Not Given Q12H NEERU Sodium Chloride 10 ml 01/20/20 09:00 01/29/20 08:36 Flush - Normal Saline 10 Ml Syringe IVF 10 ml Q12HR NEERU Administration Sodium Chloride 10 ml 01/20/20 08:15 01/23/20 13:56 Flush - Normal Saline 10 Ml Syringe IVF 10 ml PRN PRN Administration Saline Flush Tamsulosin HCl 0.4 mg 01/16/20 09:00 01/29/20 08:36 Tamsulosin Hcl 0.4 Mg Cap PO 0.4 mg DAILY NEERU Administration Temazepam 15 mg 01/20/20 07:50 01/25/20 20:14 Temazepam 15 Mg Cap PO 15 mg HSPRN PRN Administration Insomnia - Exam General Appearance: NAD, awake alert Eye: PERRL ENT: normocephalic atraumatic Neck: supple Heart: RRR, normal peripheral pulses Respiratory: CTAB, normal chest expansion Gastrointestinal: soft, normal bowel sounds Neurological: no focal deficits Hosp A/P - Plan (1) Acute combined systolic and diastolic congestive heart failure Code(s): I50.41 - ACUTE COMBINED SYSTOLIC AND DIASTOLIC (CONGESTIVE) HRT FAIL Status: Ruled-out (2) Acute respiratory failure with hypoxia Code(s): J96.01 - ACUTE RESPIRATORY FAILURE WITH HYPOXIA Status: Acute (3) Pneumonia Code(s): J18.9 - PNEUMONIA, UNSPECIFIED ORGANISM Status: Acute Qualifiers: Pneumonia type: due to Pneumococcus Laterality: right Lung location: lower lobe of lung Qualified Code(s): J13 - Pneumonia due to Streptococcus pneumoniae (4) Type 2 [place] (myocardial infarction) Code(s): I21.A1 - MYOCARDIAL INFARCTION TYPE 2 Status: Acute (5) HTN (hypertension) Code(s): I10 - ESSENTIAL (PRIMARY) HYPERTENSION Status: Chronic Qualifiers: Hypertension type: essential hypertension Qualified Code(s): I10 - Essential (primary) hypertension (6) Seizure disorder Code(s): G40.909 - EPILEPSY, UNSP, NOT INTRACTABLE, WITHOUT STATUS EPILEPTICUS Status: Chronic Community-acquired pneumonia Acute respiratory failure with hypoxia due to bilateral pneumonia. Hypoxia seems to be improving-- on high flow oxygen with 93% sat.--Plan to be weaned off Urine culture of show mixed benigno Flu test was negative. Blood cultures negative. -He is on cefepime, which is started on . Since cultures negative and clinically getting better we will stop the IV cefepime time and continue with Levaquin. Pulmonary rehab when able. We will check his ambulatory oxygen status and whether he would be qualified for home oxygen. 1st Persistent hypoxemia -spite ongoing IV steroid and antibiotics -Difficult to wean him off from high flow oxygen. When we checked the oxygen status without supplemental oxygen, even just sitting on the bed his oxygen sats dropped significantly in the lower 80s. Leukocytosis with upward trending -He is on Levaquin his elevated white count today probably due to ongoing steroid use. Patient would not be able to go home with the above scenario, even though he likes to do that. He definitely needs pulmonary rehab. 2nd He is on low-dose Lasix today given his diastolic dysfunction -his echo done on January 23 showing EF of 50% and diastolic dysfunction. We will also check his BNP and TSH. Patient likes to go to the [facility]. Discussed with the caseworker protective services. Patient being on high flow oxygen is a limitation to go to any rehab including swing bed
[2020-01-29] MEDS: Doxycycline 100 MG CAP PO SCH (20:30)
[2020-01-29] MEDS: Atorvastatin Calcium 20 MG TAB PO SCH (20:32)
[2020-01-30] MEDS: Polyethylene Glycol 3350 17 GM Packet PO SCH ×2 (07:53→21:06)
[2020-01-30] MEDS: Enoxaparin Sodium 40 MG/0.4 ML SYRINGE SC SCH (07:53)
[2020-01-30] MEDS: predniSONE 50 MG TAB PO SCH (07:53)
[2020-01-30] MEDS: Doxycycline 100 MG CAP PO SCH ×2 (07:53→21:02)
[2020-01-30] MEDS: guaiFENesin ER 600 MG TAB PO SCH ×2 (07:54→21:05)
[2020-01-30] MEDS: levETIRAcetam 500 MG TAB PO SCH ×2 (07:54→21:05)
[2020-01-30] MEDS: Aspirin 325 MG TAB PO SCH (07:54)
[2020-01-30] MEDS: Tamsulosin HCl 0.4 MG CAP PO SCH (07:54)
[2020-01-30] MEDS: Furosemide 20 MG TAB PO SCH (07:54)
[2020-01-30] MEDS: OXcarbazepine 300 MG TAB PO SCH (07:54)
[2020-01-30] MEDS: Lisinopril 2.5 MG TAB PO SCH (07:56)
[2020-01-30] MEDS: Carvedilol 3.125 MG TAB PO SCH ×2 (07:56→21:05)
--- NOTE | 2020-01-30 12:13 | PRG ---
DATE OF SERVICE: 01/30/2020 SUBJECTIVE: Sitting by the side of the bed, less short of breath, less cough, still weak. OBJECTIVE: VITAL SIGNS: Temperature 98, pulse 90, respirations 16, saturations are 96% on high-flow, blood pressure 140/70. CHEST: Bilateral crackles. CARDIAC: Normal S1, S2. No gallops. No rubs. ASSESSMENT: Bilateral bronchopneumonia atypical. All cultures negative. PLAN: Continue doxycycline, Levaquin, steroids. Hopefully, once he is off the high-flow, he can be discharged home. Job ID: [id number]
--- NOTE | 2020-01-30 12:25 | PDOC.HOSPP ---
- Subjective Encounter Date: 01/30/20 Encounter Time: 10:10 Subjective: Patient is sitting in the commode. He still has short of breath and appears more lethargic than the last few days. Respiratory ash he is not improving - Objective Vital Signs & Weight: Vital Signs (12 hours) Temp Pulse Pulse Pulse Pulse Resp BP 01/30/20 11:29 90 16 01/30/20 09:23 100 102 H 100 01/30/20 09:00 98.1 F 88 18 01/30/20 08:24 01/30/20 08:20 95 28 H 01/30/20 08:00 01/30/20 07:56 87 144/72 H 01/30/20 07:00 87 22 H BP BP BP Pulse Ox Pulse Ox Pulse Ox Pulse Ox 01/30/20 11:29 96 01/30/20 09:23 126/55 L 144/72 H 86 L 84 L 76 L 01/30/20 09:00 113/68 95 01/30/20 08:24 87 L 01/30/20 08:20 87 L 01/30/20 08:00 94 L 01/30/20 07:56 01/30/20 07:00 121/71 94 L Weight Admit Weight 216 lb 11.2 oz Weight 216 lb 11.2 oz Most Recent Monitor Data Heart Rate from ECG 101 NIBP 146/73 NIBP BP-Mean 97 Respiration from ECG 21 SpO2 94 I&O: 01/29/20 01/30/20 01/31/20 06:59 06:59 06:59 Intake Total 2000 1260 Output Total 1400 1001 Balance 600 259 Result Diagrams: 01/29/20 05:29 01/29/20 05:29 Hospitalist ROS - Medication Medications: Active Medications Generic Name Dose Route Start Last Admin Trade Name Freq PRN Reason Stop Dose Admin Acetaminophen 650 mg 01/15/20 13:32 01/16/20 06:38 Acetaminophen 325 Mg Tab PO 650 mg Q4H PRN Administration Headache/Fever/Mild Pain (1-3) Albuterol/Ipratropium 3 ml 01/21/20 10:30 01/30/20 11:29 Ipratropium/Albuterol Sulfate 3 Ml Neb NEB 3 ml [id number] NEERU Administration Aspirin 325 mg 01/16/20 09:00 01/30/20 07:54 Aspirin 325 Mg Tab PO 325 mg DAILY NEERU Administration Atorvastatin Calcium 20 mg 01/16/20 21:00 01/29/20 20:32 Atorvastatin Calcium 20 Mg Tab PO 20 mg HS NEERU Administration Bisacodyl 10 mg 01/20/20 07:50 01/21/20 08:19 Bisacodyl 5 Mg Tab PO 10 mg DAILYPRN PRN Administration Constipation Carvedilol 3.125 mg 01/23/20 21:00 01/30/20 07:56 Carvedilol 3.125 Mg Tab PO 3.125 mg BID NEERU Administration Doxycycline Hyclate 100 mg 01/29/20 21:00 01/30/20 07:53 Doxycycline 100 Mg Cap PO 02/05/20 21:01 100 mg BID NEERU Administration Enoxaparin Sodium 40 mg 01/22/20 09:00 01/30/20 07:53 Enoxaparin Sodium 40 Mg/0.4 Ml Syringe SC 40 mg 0900 NEERU Administration Furosemide 20 mg 01/30/20 09:00 01/30/20 07:54 Furosemide 20 Mg Tab PO 20 mg DAILY NEERU Administration Guaifenesin 200 mg 01/20/20 07:50 01/26/20 22:33 Diabetic Tussin 200 Mg/10 Ml Udcup PO 200 mg Q4H PRN Administration Cough Guaifenesin 600 mg 01/21/20 21:00 01/30/20 07:54 Guaifenesin Er 600 Mg Tab PO 600 mg Q12HR NEERU Administration Guaifenesin/Dextromethorphan 15 ml 01/15/20 23:13 01/26/20 04:54 Guaifenesin Dm 100-10/5 Ml Udcup PO 15 ml Q4H PRN Administration Cough Levetiracetam 1,000 mg 01/16/20 09:00 01/30/20 07:54 Levetiracetam 500 Mg Tab PO 1,000 mg QAM NEERU Administration Levetiracetam 1,500 mg 01/16/20 21:00 01/29/20 20:31 Levetiracetam 500 Mg Tab PO 1,500 mg QPM NEERU Administration Levofloxacin 750 mg 01/24/20 09:00 01/30/20 07:55 Levofloxacin 750 Mg Tab PO 750 mg DAILY NEERU Administration Lisinopril 2.5 mg 01/21/20 09:00 01/30/20 07:56 Lisinopril 2.5 Mg Tab PO 2.5 mg DAILY NEERU Administration Oxcarbazepine 600 mg 01/17/20 09:00 01/30/20 07:54 Oxcarbazepine 300 Mg Tab PO 600 mg DAILY NEERU Administration Polyethylene Glycol 17 gm 01/21/20 10:00 01/30/20 07:53 Polyethylene Glycol 3350 17 Gm Packet PO 17 gm Q12H NEERU Administration Prednisone 50 mg 01/30/20 08:00 01/30/20 07:53 Prednisone 50 Mg Tab PO 50 mg QAM-WM NEERU Administration Sodium Chloride 10 ml 01/20/20 09:00 01/30/20 07:56 Flush - Normal Saline 10 Ml Syringe IVF 10 ml Q12HR NEERU Administration Sodium Chloride 10 ml 01/20/20 08:15 01/23/20 13:56 Flush - Normal Saline 10 Ml Syringe IVF 10 ml PRN PRN Administration Saline Flush Tamsulosin HCl 0.4 mg 01/16/20 09:00 01/30/20 07:54 Tamsulosin Hcl 0.4 Mg Cap PO 0.4 mg DAILY NEERU Administration - Exam General Appearance: NAD, awake alert, ill appearing Eye: PERRL Neck: supple Heart: RRR Respiratory: rhonchi, tachypneic, wheezes Gastrointestinal: soft, normal bowel sounds Neurological: no focal deficits Psychiatric: A&O x 3 Hosp A/P - Plan (1) Acute combined systolic and diastolic congestive heart failure Code(s): I50.41 - ACUTE COMBINED SYSTOLIC AND DIASTOLIC (CONGESTIVE) HRT FAIL Status: Ruled-out (2) Acute respiratory failure with hypoxia Code(s): J96.01 - ACUTE RESPIRATORY FAILURE WITH HYPOXIA Status: Acute (3) Pneumonia Code(s): J18.9 - PNEUMONIA, UNSPECIFIED ORGANISM Status: Acute Qualifiers: Pneumonia type: due to Pneumococcus Laterality: right Lung location: lower lobe of lung Qualified Code(s): J13 - Pneumonia due to Streptococcus pneumoniae (4) Type 2 MS (myocardial infarction) Code(s): I21.A1 - MYOCARDIAL INFARCTION TYPE 2 Status: Acute (5) HTN (hypertension) Code(s): I10 - ESSENTIAL (PRIMARY) HYPERTENSION Status: Chronic Qualifiers: Hypertension type: essential hypertension Qualified Code(s): I10 - Essential (primary) hypertension (6) Seizure disorder Code(s): G40.909 - EPILEPSY, UNSP, NOT INTRACTABLE, WITHOUT STATUS EPILEPTICUS Status: Chronic Community-acquired pneumonia Acute respiratory failure with hypoxia due to bilateral pneumonia. Hypoxia seems to be improving-- on high flow oxygen with 93% sat.--Plan to be weaned off Urine culture of show mixed benigno Flu test was negative. Blood cultures negative. -He is on cefepime, which is started on . Since cultures negative and clinically getting better we will stop the IV cefepime time and continue with Levaquin. Pulmonary rehab when able. We will check his ambulatory oxygen status and whether he would be qualified for home oxygen. 1st Persistent hypoxemia -spite ongoing IV steroid and antibiotics -Difficult to wean him off from high flow oxygen. When we checked the oxygen status without supplemental oxygen, even just sitting on the bed his oxygen sats dropped significantly in the lower 80s. Leukocytosis with upward trending -He is on Levaquin his elevated white count today probably due to ongoing steroid use. Patient would not be able to go home with the above scenario, even though he likes to do that. He definitely needs pulmonary rehab. 2nd He is on low-dose Lasix today given his diastolic dysfunction -his echo done on January 23 showing EF of 50% and diastolic dysfunction. We will also check his BNP and TSH. Patient likes to go to the [facility]. Discussed with the bilingual case manager. Patient being on high flow oxygen is a limitation to go to any rehab including swing bed 3rd No change in the medical management. Pending placement however it is a difficult case to place given his requirement for high flow oxygen.
[2020-01-30] MEDS: Atorvastatin Calcium 20 MG TAB PO SCH (21:05)
[2020-01-31] MEDS: OXcarbazepine 300 MG TAB PO SCH (08:45)
[2020-01-31] MEDS: levETIRAcetam 500 MG TAB PO SCH ×2 (08:46→20:23)
[2020-01-31] MEDS: Carvedilol 3.125 MG TAB PO SCH ×2 (08:46→20:23)
[2020-01-31] MEDS: Tamsulosin HCl 0.4 MG CAP PO SCH (08:46)
[2020-01-31] MEDS: predniSONE 50 MG TAB PO SCH (08:49)
[2020-01-31] MEDS: Lisinopril 2.5 MG TAB PO SCH (08:49)
[2020-01-31] MEDS: Aspirin 325 MG TAB PO SCH (08:49)
[2020-01-31] MEDS: guaiFENesin ER 600 MG TAB PO SCH ×2 (08:49→20:23)
[2020-01-31] MEDS: Doxycycline 100 MG CAP PO SCH ×2 (09:14→20:23)
[2020-01-31] MEDS: Polyethylene Glycol 3350 17 GM Packet PO SCH ×2 (09:14→20:24)
[2020-01-31] MEDS: Enoxaparin Sodium 40 MG/0.4 ML SYRINGE SC SCH (09:14)
[2020-01-31] MEDS: Furosemide 20 MG TAB PO SCH (09:14)
--- NOTE | 2020-01-31 11:07 | PRG ---
DATE OF SERVICE: 01/31/2020 SUBJECTIVE: [place] Catherine is still remains on high-flow with a sat of . OBJECTIVE: VITAL SIGNS: Temperature 98, , blood pressure 95/57. GENERAL: He denies any difficulty breathing. Sputum is clear. CHEST: Minimal crackles. CARDIAC: Normal S1, S2. No gallops. ABDOMEN: No masses. ASSESSMENT: Probably aspiration pneumonia. All cultures negative. Respiratory failure, requiring high-flow. Continue two antibiotics, Levaquin and doxy, prednisone. Once we get his high-flow down, he can be transitioned to a step-down unit. Job ID: [id number]
--- NOTE | 2020-01-31 11:24 | RAD ---
PORTABLE CHEST: Date: 01/31/2020 HISTORY: Pneumonia. COMPARISON: 01/23/2020. FINDINGS: Elevated left hemidiaphragm with gas-filled colon under the left hemidiaphragm has a similar appearan ce. Cardiomegaly with vascular and interstitial congestion. Diffuse interstitial and hazy alveolar in filtrates bilaterally could represent edema or inflammatory process. Small right effusion. Granuloma upper left lung again noted. IMPRESSION: Vascular and interstitial congestion with bilateral infiltrates which could represent edema or inflam matory process. Similar findings were present on 01/23/2020. POS: AGW
--- NOTE | 2020-01-31 12:39 | PDOC.HOSPP ---
- Subjective Encounter Date: 01/31/20 Encounter Time: 09:30 Subjective: Patient is quite frustrated with his medical conditions. We had a lengthy long conversation. He is more worried about moving everything including financials/ bankings from here. He is also considering calling his son Ranjan who lives at [place] and whether he can move there to be closer to his son. He is also wondering whether the son would come forward to help him if needed him. He has his own doubts that his son may not be able to help him much. He is still on high flow oxygen at 40% and he is sats around 94%. While he is talking a during this entire time he has very difficulty with the short of breath. The end of the conversation he looks very fatigued and more short of breath. He is normotensive - Objective Vital Signs & Weight: Vital Signs (12 hours) Temp Pulse Resp BP Pulse Ox Pulse Ox 01/31/20 11:01 89 18 94 L 01/31/20 10:46 92 L 01/31/20 09:00 119/71 01/31/20 08:00 92 L 01/31/20 07:15 98.4 F 80 20 95/57 L 92 L Weight Admit Weight 216 lb 11.2 oz Weight 216 lb 11.2 oz Most Recent Monitor Data Heart Rate from ECG 101 NIBP 146/73 NIBP BP-Mean 97 Respiration from ECG 21 SpO2 94 I&O: 01/30/20 01/31/20 02/01/20 06:59 06:59 06:59 Intake Total 1260 1200 Output Total 1001 600 Balance 259 600 Result Diagrams: 01/29/20 05:29 01/29/20 05:29 Hospitalist ROS - Medication Medications: Active Medications Generic Name Dose Route Start Last Admin Trade Name Freq PRN Reason Stop Dose Admin Acetaminophen 650 mg 01/15/20 13:32 01/16/20 06:38 Acetaminophen 325 Mg Tab PO 650 mg Q4H PRN Administration Headache/Fever/Mild Pain (1-3) Albuterol/Ipratropium 3 ml 01/21/20 10:30 01/31/20 11:01 Ipratropium/Albuterol Sulfate 3 Ml Neb NEB 3 ml [id number] NEERU Administration Aspirin 325 mg 01/16/20 09:00 01/31/20 08:49 Aspirin 325 Mg Tab PO 325 mg DAILY NEERU Administration Atorvastatin Calcium 20 mg 01/16/20 21:00 01/30/20 21:05 Atorvastatin Calcium 20 Mg Tab PO 20 mg HS NEERU Administration Bisacodyl 10 mg 01/20/20 07:50 01/21/20 08:19 Bisacodyl 5 Mg Tab PO 10 mg DAILYPRN PRN Administration Constipation Carvedilol 3.125 mg 01/23/20 21:00 01/31/20 08:46 Carvedilol 3.125 Mg Tab PO 3.125 mg BID NEERU Administration Doxycycline Hyclate 100 mg 01/29/20 21:00 01/31/20 09:14 Doxycycline 100 Mg Cap PO 02/05/20 21:01 100 mg BID NEERU Administration Enoxaparin Sodium 40 mg 01/22/20 09:00 01/31/20 09:14 Enoxaparin Sodium 40 Mg/0.4 Ml Syringe SC 40 mg 0900 NEERU Administration Furosemide 20 mg 01/30/20 09:00 01/31/20 09:14 Furosemide 20 Mg Tab PO 20 mg DAILY NEERU Administration Guaifenesin 200 mg 01/20/20 07:50 01/26/20 22:33 Diabetic Tussin 200 Mg/10 Ml Udcup PO 200 mg Q4H PRN Administration Cough Guaifenesin 600 mg 01/21/20 21:00 01/31/20 08:49 Guaifenesin Er 600 Mg Tab PO 600 mg Q12HR NEERU Administration Guaifenesin/Dextromethorphan 15 ml 01/15/20 23:13 01/26/20 04:54 Guaifenesin Dm 100-10/5 Ml Udcup PO 15 ml Q4H PRN Administration Cough Levetiracetam 1,000 mg 01/16/20 09:00 01/31/20 08:46 Levetiracetam 500 Mg Tab PO 1,000 mg QAM NEERU Administration Levetiracetam 1,500 mg 01/16/20 21:00 01/30/20 21:05 Levetiracetam 500 Mg Tab PO 1,500 mg QPM NEERU Administration Levofloxacin 750 mg 01/24/20 09:00 01/31/20 08:49 Levofloxacin 750 Mg Tab PO 750 mg DAILY NEERU Administration Lisinopril 2.5 mg 01/21/20 09:00 01/31/20 08:49 Lisinopril 2.5 Mg Tab PO 2.5 mg DAILY NEERU Administration Oxcarbazepine 600 mg 01/17/20 09:00 01/31/20 08:45 Oxcarbazepine 300 Mg Tab PO 600 mg DAILY NEERU Administration Polyethylene Glycol 17 gm 01/21/20 10:00 01/31/20 09:14 Polyethylene Glycol 3350 17 Gm Packet PO 17 gm Q12H NEERU Administration Prednisone 50 mg 01/30/20 08:00 01/31/20 08:49 Prednisone 50 Mg Tab PO 50 mg QAM-WM NEERU Administration Sodium Chloride 10 ml 01/20/20 09:00 01/31/20 09:14 Flush - Normal Saline 10 Ml Syringe IVF Not Given Q12HR NEERU Sodium Chloride 10 ml 01/20/20 08:15 01/23/20 13:56 Flush - Normal Saline 10 Ml Syringe IVF 10 ml PRN PRN Administration Saline Flush Tamsulosin HCl 0.4 mg 01/16/20 09:00 01/31/20 08:46 Tamsulosin Hcl 0.4 Mg Cap PO 0.4 mg DAILY NEERU Administration - Exam General Appearance: NAD, awake alert, ill appearing Eye: PERRL ENT: normocephalic atraumatic Neck: supple Heart: RRR, normal peripheral pulses Respiratory: CTAB, normal chest expansion Gastrointestinal: soft, normal bowel sounds Neurological: no focal deficits Psychiatric: A&O x 3 Hosp A/P - Plan (1) Acute combined systolic and diastolic congestive heart failure Code(s): I50.41 - ACUTE COMBINED SYSTOLIC AND DIASTOLIC (CONGESTIVE) HRT FAIL Status: Ruled-out (2) Acute respiratory failure with hypoxia Code(s): J96.01 - ACUTE RESPIRATORY FAILURE WITH HYPOXIA Status: Acute (3) Pneumonia Code(s): J18.9 - PNEUMONIA, UNSPECIFIED ORGANISM Status: Acute Qualifiers: Pneumonia type: due to Pneumococcus Laterality: right Lung location: lower lobe of lung Qualified Code(s): J13 - Pneumonia due to Streptococcus pneumoniae (4) Type 2 [place] (myocardial infarction) Code(s): I21.A1 - MYOCARDIAL INFARCTION TYPE 2 Status: Acute (5) HTN (hypertension) Code(s): I10 - ESSENTIAL (PRIMARY) HYPERTENSION Status: Chronic Qualifiers: Hypertension type: essential hypertension Qualified Code(s): I10 - Essential (primary) hypertension (6) Seizure disorder Code(s): G40.909 - EPILEPSY, UNSP, NOT INTRACTABLE, WITHOUT STATUS EPILEPTICUS Status: Chronic Community-acquired pneumonia Acute respiratory failure with hypoxia due to bilateral pneumonia. Hypoxia seems to be improving-- on high flow oxygen with 93% sat.--Plan to be weaned off Urine culture of show mixed benigno Flu test was negative. Blood cultures negative. -He is on cefepime, which is started on . Since cultures negative and clinically getting better we will stop the IV cefepime time and continue with Levaquin. Pulmonary rehab when able. We will check his ambulatory oxygen status and whether he would be qualified for home oxygen. 1st Persistent hypoxemia -spite ongoing IV steroid and antibiotics -Difficult to wean him off from high flow oxygen. When we checked the oxygen status without supplemental oxygen, even just sitting on the bed his oxygen sats dropped significantly in the lower 80s. Leukocytosis with upward trending -He is on Levaquin his elevated white count today probably due to ongoing steroid use. Patient would not be able to go home with the above scenario, even though he likes to do that. He definitely needs pulmonary rehab. He is on low-dose Lasix today given his diastolic dysfunction -his echo done on January 23 showing EF of 50% and diastolic dysfunction. We will also check his BNP and TSH.. He is still on high flow oxygen at 40% and he is sats around 94%. While he is talking during this entire time he has very difficulty with the short of breath. The end of the conversation he looks very fatigued and more short of breath. He is normotensive Patient is quite frustrated with his medical conditions. We had a lengthy long conversation. He is more worried about moving everything including financials/ bankings from here. He is also considering calling his son Ranjan who lives at [place] and whether he can move there to be closer to his son. He is also wondering whether the son would come forward to help him if needed him. manager requirements is working aggressively trying to find whether rehabs/swing bed would take him.
[2020-01-31] MEDS: Atorvastatin Calcium 20 MG TAB PO SCH (20:23)
[2020-02-01] MEDS: Doxycycline 100 MG CAP PO SCH ×2 (08:23→20:24)
[2020-02-01] MEDS: guaiFENesin ER 600 MG TAB PO SCH ×2 (08:23→20:24)
[2020-02-01] MEDS: Carvedilol 3.125 MG TAB PO SCH ×2 (08:23→20:24)
[2020-02-01] MEDS: levETIRAcetam 500 MG TAB PO SCH ×2 (08:23→20:24)
[2020-02-01] MEDS: predniSONE 50 MG TAB PO SCH (08:23)
[2020-02-01] MEDS: Aspirin 325 MG TAB PO SCH (08:23)
[2020-02-01] MEDS: Tamsulosin HCl 0.4 MG CAP PO SCH (08:24)
[2020-02-01] MEDS: OXcarbazepine 300 MG TAB PO SCH (08:24)
[2020-02-01] MEDS: Furosemide 20 MG TAB PO SCH (08:24)
[2020-02-01] MEDS: Lisinopril 2.5 MG TAB PO SCH (08:25)
[2020-02-01] MEDS: Enoxaparin Sodium 40 MG/0.4 ML SYRINGE SC SCH (08:25)
[2020-02-01] MEDS: Polyethylene Glycol 3350 17 GM Packet PO SCH ×2 (08:29→20:25)
[2020-02-01 09:31] LABS: Actual Bicarbonate (HCO3a) 31.5 mEq/L (22-28); Base Excess (BEa) 6.4 mEq/L (-2.0 to +3.0); CO2 Tension 47.5 mmHg (35.0-45.0); Calcium, Ionized (arterial) 1.14 mmol/L (1.12-1.30); Carboxyhemoglobin (COHb) 0.5 gm% (0.0-3.0); Hemoglobin (Hb) 12.7 g/dL (14.0-18.0); O2 Tension (PaO2), arterial 102.7 mmHg (> 70.0); Potassium - ABG Lab 4.13 mmol/L (3.70-5.30); pH, Arterial 7.44 (7.35-7.45)
[2020-02-01 09:32] LABS: ALV-art Gradient 244.335 mmHg (0-20); Puncture Site RRA
--- NOTE | 2020-02-01 10:56 | PRG ---
DATE OF SERVICE: 02/01/2020 SUBJECTIVE: This morning, he is still having difficulty breathing. OBJECTIVE: VITAL SIGNS: Temperature 97, pulse 88, high-flow, his saturations are 98%, blood pressure 128/78. CHEST: No wheezing, no crackles. CARDIAC: Normal S1 and S2. No gallops. ABDOMEN: Soft. LABORATORY DATA: PO2 is 120, pCO2 is 47, pH 7.44, on high flow, 50 L, 50%. ASSESSMENT AND PLAN: Respiratory failure, bilateral bronchopneumonia. He has re-swab today to make sure he does not have coronavirus. If he has, he would be given a course of convalescent plasma. He is not a candidate for remdesivir. Meantime, continue steroids and antibiotics. Job ID: [id number]
[2020-02-01 12:18] LABS: SARS-CoV-2 NAA Rapid Test Not Detected (NotDetected)
--- NOTE | 2020-02-01 13:21 | PDOC.HOSPP ---
- Subjective Encounter Date: 02/01/20 Encounter Time: 09:40 Subjective: Patient still on the high flow oxygen. I have discussed with him in detail. Blood gas showed PCO2 of 47.5 which is worsening since the last blood gas done on which showed a PCO2 of 38.8 and now currently it is 47.5. Repeat chest x-ray done yesterday shows vascular and interstitial congestion with bilateral infiltrate could be edema versus inflammatory process. Repeat Covid is negative. Clinically he looks toxic and in respiratory distress. - Objective Vital Signs & Weight: Vital Signs (12 hours) Temp Pulse Resp BP Pulse Ox 02/01/20 10:13 88 16 02/01/20 08:00 100 02/01/20 07:27 97.7 F 87 16 128/78 100 02/01/20 06:51 98 02/01/20 06:49 84 16 Weight Admit Weight 216 lb 11.2 oz Weight 216 lb 11.2 oz Most Recent Monitor Data Heart Rate from ECG 101 NIBP 146/73 NIBP BP-Mean 97 Respiration from ECG 21 SpO2 94 I&O: 01/31/20 02/01/20 02/02/20 06:59 06:59 06:59 Intake Total 1200 1150 Output Total 600 1000 Balance 600 150 Result Diagrams: 01/29/20 05:29 01/29/20 05:29 Hospitalist ROS - Medication Medications: Active Medications Generic Name Dose Route Start Last Admin Trade Name Freq PRN Reason Stop Dose Admin Acetaminophen 650 mg 01/15/20 13:32 01/16/20 06:38 Acetaminophen 325 Mg Tab PO 650 mg Q4H PRN Administration Headache/Fever/Mild Pain (1-3) Albuterol/Ipratropium 3 ml 01/21/20 10:30 02/01/20 10:13 Ipratropium/Albuterol Sulfate 3 Ml Neb NEB 3 ml [id number] NEERU Administration Aspirin 325 mg 01/16/20 09:00 02/01/20 08:23 Aspirin 325 Mg Tab PO 325 mg DAILY NEERU Administration Atorvastatin Calcium 20 mg 01/16/20 21:00 01/31/20 20:23 Atorvastatin Calcium 20 Mg Tab PO 20 mg HS NEERU Administration Bisacodyl 10 mg 01/20/20 07:50 01/21/20 08:19 Bisacodyl 5 Mg Tab PO 10 mg DAILYPRN PRN Administration Constipation Carvedilol 3.125 mg 01/23/20 21:00 02/01/20 08:23 Carvedilol 3.125 Mg Tab PO 3.125 mg BID NEERU Administration Doxycycline Hyclate 100 mg 01/29/20 21:00 02/01/20 08:23 Doxycycline 100 Mg Cap PO 02/05/20 21:01 100 mg BID NEERU Administration Enoxaparin Sodium 40 mg 01/22/20 09:00 02/01/20 08:25 Enoxaparin Sodium 40 Mg/0.4 Ml Syringe SC 40 mg 899 NEERU Administration Furosemide 20 mg 01/30/20 09:00 02/01/20 08:24 Furosemide 20 Mg Tab PO 20 mg DAILY NEERU Administration Guaifenesin 200 mg 01/20/20 07:50 01/26/20 22:33 Diabetic Tussin 200 Mg/10 Ml Udcup PO 200 mg Q4H PRN Administration Cough Guaifenesin 600 mg 01/21/20 21:00 02/01/20 08:23 Guaifenesin Er 600 Mg Tab PO 600 mg Q12HR NEERU Administration Guaifenesin/Dextromethorphan 15 ml 01/15/20 23:13 01/26/20 04:54 Guaifenesin Dm 100-10/5 Ml Udcup PO 15 ml Q4H PRN Administration Cough Levetiracetam 1,000 mg 01/16/20 09:00 02/01/20 08:23 Levetiracetam 500 Mg Tab PO 1,000 mg QAM NEERU Administration Levetiracetam 1,500 mg 01/16/20 21:00 01/31/20 20:23 Levetiracetam 500 Mg Tab PO 1,500 mg QPM NEERU Administration Levofloxacin 750 mg 01/24/20 09:00 02/01/20 08:25 Levofloxacin 750 Mg Tab PO 750 mg DAILY NEERU Administration Lisinopril 2.5 mg 01/21/20 09:00 02/01/20 08:25 Lisinopril 2.5 Mg Tab PO 2.5 mg DAILY NEERU Administration Oxcarbazepine 600 mg 01/17/20 09:00 02/01/20 08:24 Oxcarbazepine 300 Mg Tab PO 600 mg DAILY NEERU Administration Polyethylene Glycol 17 gm 01/21/20 10:00 02/01/20 08:29 Polyethylene Glycol 3350 17 Gm Packet PO 17 gm Q12H NEERU Administration Prednisone 50 mg 01/30/20 08:00 02/01/20 08:23 Prednisone 50 Mg Tab PO 50 mg QAM-WM NEERU Administration Sodium Chloride 10 ml 01/20/20 09:00 02/01/20 08:25 Flush - Normal Saline 10 Ml Syringe IVF Not Given Q12HR NEERU Sodium Chloride 10 ml 01/20/20 08:15 01/23/20 13:56 Flush - Normal Saline 10 Ml Syringe IVF 10 ml PRN PRN Administration Saline Flush Tamsulosin HCl 0.4 mg 01/16/20 09:00 02/01/20 08:24 Tamsulosin Hcl 0.4 Mg Cap PO 0.4 mg DAILY NEERU Administration - Exam General Appearance: awake alert, ill appearing Eye: PERRL ENT: normocephalic atraumatic Neck: supple Heart: RRR Respiratory: CTAB, normal chest expansion, rhonchi, tachypneic Gastrointestinal: normal bowel sounds Neurological: no focal deficits, no new deficit Psychiatric: A&O x 3 Hosp A/P - Plan (1) Acute combined systolic and diastolic congestive heart failure Code(s): I50.41 - ACUTE COMBINED SYSTOLIC AND DIASTOLIC (CONGESTIVE) HRT FAIL Status: Ruled-out (2) Acute respiratory failure with hypoxia Code(s): J96.01 - ACUTE RESPIRATORY FAILURE WITH HYPOXIA Status: Acute (3) Pneumonia Code(s): J18.9 - PNEUMONIA, UNSPECIFIED ORGANISM Status: Acute Qualifiers: Pneumonia type: due to Pneumococcus Laterality: right Lung location: lower lobe of lung Qualified Code(s): J13 - Pneumonia due to Streptococcus pneumoniae (4) Type 2 [place] (myocardial infarction) Code(s): I21.A1 - MYOCARDIAL INFARCTION TYPE 2 Status: Acute (5) HTN (hypertension) Code(s): I10 - ESSENTIAL (PRIMARY) HYPERTENSION Status: Chronic Qualifiers: Hypertension type: essential hypertension Qualified Code(s): I10 - Ess ential (primary) hypertension (6) Seizure disorder Code(s): G40.909 - EPILEPSY, UNSP, NOT INTRACTABLE, WITHOUT STATUS EPILEPTICUS Status: Chronic Community-acquired pneumonia Acute respiratory failure with hypoxia due to bilateral pneumonia. Hypoxia seems to be improving-- on high flow oxygen with 93% sat.--Plan to be weaned off Urine culture of show mixed benigno Flu test was negative. Blood cultures negative. -He is on cefepime, which is started on . Since cultures negative and clinically getting better we will stop the IV cefepime time and continue with Levaquin. Pulmonary rehab when able. We will check his ambulatory oxygen status and whether he would be qualified for home oxygen. 1st Persistent hypoxemia -spite ongoing IV steroid and antibiotics -Difficult to wean him off from high flow oxygen. When we checked the oxygen status without supplemental oxygen, even just sitting on the bed his oxygen sats dropped significantly in the lower 80s. Leukocytosis with upward trending -He is on Levaquin his elevated white count today probably due to ongoing steroid use. Patient would not be able to go home with the above scenario, even though he likes to do that. He definitely needs pulmonary rehab. He is on low-dose Lasix today given his diastolic dysfunction -his echo done on January 23 showing EF of 50% and diastolic dysfunction. We will also check his BNP and TSH.. He is still on high flow oxygen at 40% and he is sats around 94%. While he is talking during this entire time he has very difficulty with the short of breath. The end of the conversation he looks very fatigued and more short of breath. He is normotensive Patient is quite frustrated with his medical conditions. We had a lengthy long conversation. He is more worried about moving everything including financials/ bankings from here. He is also considering calling his son Ranjan who lives at [place] and whether he can move there to be closer to his son. He is also wondering whether the son would come forward to help him if needed him. integrated logistics operations manager is working aggressively trying to find whether rehabs/swing bed would take him. 5th Worsening hyperapnia Worsening hypoxia -Even though arterial blood gas shows pH of 7.44 his PCO2 is worsening from January 20. And he is retaining CO2. He is a he is at risk for respiratory distress. Trial of BiPAP is encouraged but it appears patient does not want to wear the BiPAP. Repeat Covid test is negative. In the last 3 days his white count is elevated [yes, he is on prednisone] CXR of 4th -bilateral infiltrate He is on antibiotic both Levaquin and doxycycline along with prednisone -He is not able to be weaned number from high flow oxygen and clinically he is getting worse. -Even though Covid is negative, I could not completely clinically rule out, so I am going to consult infectious disease. May benefit with trial of c onvalescent plasma infusion? -Echo performed showed EF of 50% with diastolic dysfunction. He is on Lasix. - -
[2020-02-01] MEDS: Atorvastatin Calcium 20 MG TAB PO SCH (20:24)
[2020-02-02] MEDS: Loratadine 10 MG TAB PO PRN ×2 (00:28→23:36)
[2020-02-02] MEDS: Doxycycline 100 MG CAP PO SCH ×2 (09:24→20:28)
[2020-02-02] MEDS: Tamsulosin HCl 0.4 MG CAP PO SCH (09:24)
[2020-02-02] MEDS: OXcarbazepine 300 MG TAB PO SCH (09:25)
[2020-02-02] MEDS: guaiFENesin ER 600 MG TAB PO SCH ×2 (09:25→20:28)
[2020-02-02] MEDS: Lisinopril 2.5 MG TAB PO SCH (09:26)
[2020-02-02] MEDS: levETIRAcetam 500 MG TAB PO SCH ×2 (09:26→20:28)
[2020-02-02] MEDS: Carvedilol 3.125 MG TAB PO SCH ×2 (09:26→20:29)
[2020-02-02] MEDS: Aspirin 325 MG TAB PO SCH (09:26)
[2020-02-02] MEDS: predniSONE 50 MG TAB PO SCH (09:27)
[2020-02-02] MEDS: Furosemide 40 MG TAB PO SCH (09:27)
[2020-02-02] MEDS: Enoxaparin Sodium 40 MG/0.4 ML SYRINGE SC SCH (09:27)
[2020-02-02] MEDS: Polyethylene Glycol 3350 17 GM Packet PO SCH ×2 (09:28→20:29)
--- NOTE | 2020-02-02 10:08 | PRG ---
DATE OF SERVICE: 02/02/2020 SUBJECTIVE: This morning, he is sitting upright in bed. OBJECTIVE: VITAL SIGNS: Temperature 97, pulse 84, saturations are better on high-flow at 97% he said he is feeling better. CHEST: Bilateral crackles. CARDIAC: Normal S1 and S2. No gallops. ABDOMEN: No masses. IMPRESSION AND PLAN: Respiratory failure, bilateral bronchopneumonia, possibly aspiration, severe deconditioning, seizure disorders. Continue Levaquin, doxy, steroids, neb treatments, supportive care. We will follow. Job ID: [id number]
--- NOTE | 2020-02-02 11:14 | PDOC.HOSPP ---
- Subjective Encounter Date: 02/02/20 Encounter Time: 09:40 Subjective: Patient has nonstop conversation at least 10 to 15 minutes every day when I rounded. At the end of the his talk he gets very tired with short of breath. He pondering over [id number] on moving to [place] near his son. The son who is staying with him it looks he will not be able to be around I accept 1 hour while he is awake as he is doing some night shifts. He is clinically his need for oxygen requirements is not improving. Not worsening either in the last couple of days. - Objective Vital Signs & Weight: Vital Signs (12 hours) Temp Pulse Resp BP BP Pulse Ox 02/02/20 08:34 96 02/02/20 08:32 84 18 97 02/02/20 08:00 97.7 F 90 20 134/84 98 02/02/20 04:57 86 18 123/75 97 02/02/20 00:19 98.0 F 83 18 136/79 98 Weight Admit Weight 216 lb 11.2 oz Weight 216 lb 11.2 oz Most Recent Monitor Data Heart Rate from ECG 101 NIBP 146/73 NIBP BP-Mean 97 Respiration from ECG 21 SpO2 94 I&O: 02/01/20 02/02/20 02/03/20 06:59 06:59 06:59 Intake Total 1150 Output Total 1000 250 Balance 150 -250 Result Diagrams: 01/29/20 05:29 01/29/20 05:29 Hospitalist ROS - Medication Medications: Active Medications Generic Name Dose Route Start Last Admin Trade Name Freq PRN Reason Stop Dose Admin Acetaminophen 650 mg 01/15/20 13:32 01/16/20 06:38 Acetaminophen 325 Mg Tab PO 650 mg Q4H PRN Administration Headache/Fever/Mild Pain (1-3) Albuterol/Ipratropium 3 ml 01/21/20 10:30 02/02/20 08:32 Ipratropium/Albuterol Sulfate 3 Ml Neb NEB 3 ml [id number] NEERU Administration Aspirin 325 mg 01/16/20 09:00 02/02/20 09:26 Aspirin 325 Mg Tab PO 325 mg DAILY NEERU Administration Atorvastatin Calcium 20 mg 01/16/20 21:00 02/01/20 20:24 Atorvastatin Calcium 20 Mg Tab PO 20 mg HS NEERU Administration Bisacodyl 10 mg 01/20/20 07:50 01/21/20 08:19 Bisacodyl 5 Mg Tab PO 10 mg DAILYPRN PRN Administration Constipation Carvedilol 3.125 mg 01/23/20 21:00 02/02/20 09:26 Carvedilol 3.125 Mg Tab PO 3.125 mg BID NEERU Administration Doxycycline Hyclate 100 mg 01/29/20 21:00 02/02/20 09:24 Doxycycline 100 Mg Cap PO 02/05/20 21:01 100 mg BID NEERU Administration Enoxaparin Sodium 40 mg 01/22/20 09:00 02/02/20 09:27 Enoxaparin Sodium 40 Mg/0.4 Ml Syringe SC 40 mg 00 NEERU Administration Furosemide 40 mg 02/02/20 09:00 02/02/20 09:27 Furosemide 40 Mg Tab PO 40 mg DAILY NEERU Administration Guaifenesin 200 mg 01/20/20 07:50 01/26/20 22:33 Diabetic Tussin 200 Mg/10 Ml Udcup PO 200 mg Q4H PRN Administration Cough Guaifenesin 600 mg 01/21/20 21:00 02/02/20 09:25 Guaifenesin Er 600 Mg Tab PO 600 mg Q12HR NEERU Administration Guaifenesin/Dextromethorphan 15 ml 01/15/20 23:13 01/26/20 04:54 Guaifenesin Dm 100-10/5 Ml Udcup PO 15 ml Q4H PRN Administration Cough Levetiracetam 1,000 mg 01/16/20 09:00 02/02/20 09:26 Levetiracetam 500 Mg Tab PO 1,000 mg QAM NEERU Administration Levetiracetam 1,500 mg 01/16/20 21:00 02/01/20 20:24 Levetiracetam 500 Mg Tab PO 1,500 mg QPM NEERU Administration Levofloxacin 750 mg 01/24/20 09:00 02/02/20 09:26 Levofloxacin 750 Mg Tab PO 750 mg DAILY NEERU Administration Lisinopril 2.5 mg 01/21/20 09:00 02/02/20 09:26 Lisinopril 2.5 Mg Tab PO 2.5 mg DAILY NEERU Administration Loratadine 10 mg 01/20/20 07:50 02/02/20 00:28 Loratadine 10 Mg Tab PO 10 mg DAILYPRN PRN Administration Sinus Symptoms Oxcarbazepine 600 mg 01/17/20 09:00 02/02/20 09:25 Oxcarbazepine 300 Mg Tab PO 600 mg DAILY NEERU Administration Polyethylene Glycol 17 gm 01/21/20 10:00 02/02/20 09:28 Polyethylene Glycol 3350 17 Gm Packet PO 17 gm Q12H NEERU Administration Prednisone 50 mg 01/30/20 08:00 02/02/20 09:27 Prednisone 50 Mg Tab PO 50 mg QAM-WM NEERU Administration Sodium Chloride 10 ml 01/20/20 09:00 02/02/20 09:32 Flush - Normal Saline 10 Ml Syringe IVF Not Given Q12HR NEERU Sodium Chloride 10 ml 01/20/20 08:15 01/23/20 13:56 Flush - Normal Saline 10 Ml Syringe IVF 10 ml PRN PRN Administration Saline Flush Tamsulosin HCl 0.4 mg 01/16/20 09:00 02/02/20 09:24 Tamsulosin Hcl 0.4 Mg Cap PO 0.4 mg DAILY NEERU Administration - Exam General Appearance: ill appearing General - other findings: On high flow oxygen and he is getting short of breath with ongoing nonstop Eye: PERRL ENT: normocephalic atraumatic Neck: supple Heart: RRR Respiratory: rales, rhonchi, tachypneic Gastrointestinal: soft, normal bowel sounds Neurological: no focal deficits Psychiatric: A&O x 3 Hosp A/P - Plan (1) Acute combined systolic and diastolic congestive heart failure Code(s): I50.41 - ACUTE COMBINED SYSTOLIC AND DIASTOLIC (CONGESTIVE) HRT FAIL Status: Ruled-out (2) Acute respiratory failure with hypoxia Code(s): J96.01 - ACUTE RESPIRATORY FAILURE WITH HYPOXIA Status: Acute (3) Pneumonia Code(s): J18.9 - PNEUMONIA, UNSPECIFIED ORGANISM Status: Acute Qualifiers: Pneumonia type: due to Pneumococcus Laterality: right Lung location: lower lobe of lung Qualified Code(s): J13 - Pneumonia due to Streptococcus pneumoniae (4) Type 2 [place] (myocardial infarction) Code(s): I21.A1 - MYOCARDIAL INFARCTION TYPE 2 Status: Acute (5) HTN (hypertension) Code(s): I10 - ESSENTIAL (PRIMARY) HYPERTENSION Status: Chronic Qualifiers: Hypertension type: essential hypertension Qualified Code(s): I10 - Essential (primary) hypertension (6) Seizure disorder Code(s): G40.909 - EPILEPSY, UNSP, NOT INTRACTABLE, WITHOUT STATUS EPILEPTICUS Status: Chronic Community-acquired pneumonia Acute respiratory failure with hypoxia due to bilateral pneumonia. Hypoxia seems to be improving-- on high flow oxygen with 93% sat.--Plan to be weaned off Urine culture of show mixed benigno Flu test was negative. Blood cultures negative. -He is on cefepime, which is started on . Since cultures negative and clinically getting better we will stop the IV cefepime time and continue with Levaquin. Pulmonary rehab when able. We will check his ambulatory oxygen status and whether he would be qualified for home oxygen. 1st Persistent hypoxemia -spite ongoing IV steroid and antibiotics -Difficult to wean him off from high flow oxygen. When we checked the oxygen status without supplemental oxygen, even just sitting on the bed his oxygen sats dropped significantly in the lower 80s. Leukocytosis with upward trending -He is on Levaquin his elevated white count today probably due to ongoing steroid use. Patient would not be able to go home with the above scenario, even though he likes to do that. He definitely needs pulmonary rehab. He is on low-dose Lasix today given his diastolic dysfunction -his echo done on January 23 showing EF of 50% and diastolic dysfunction. We will also check his BNP and TSH.. He is still on high flow oxygen at 40% and he is sats around 94%. While he is talking during this entire time he has very difficulty with the short of breath. The end of the conversation he looks very fatigued and more short of breath. He is normotensive Patient is quite frustrated with his medical conditions. We had a lengthy long conversation. He is more worried about moving everything including financials/ bankings from here. He is also considering calling his son Ranjan who lives at [place] and whether he can move there to be closer to his son. He is also wondering whether the son would come forward to help him if needed him. manager academic is working aggressively trying to find whether rehabs/swing bed would take him. Worsening hyperapnia Worsening hypoxia -Even though arterial blood gas shows pH of 7.44 his PCO2 is worsening from January 20. And he is retaining CO2. He is a he is at risk for respiratory distress. Trial of BiPAP is encouraged but it appears patient does not want to wear the BiPAP. Repeat Covid test is negative. In the last 3 days his white count is elevated [yes, he is on prednisone] CXR of 4th -bilateral infiltrate He is on antibiotic both Levaquin and doxycycline along with prednisone -He is not able to be weaned number from high flow oxygen and clinically he is getting worse. -Even though Covid is negative, I could not completely clinically rule out, so I am going to consult infectious disease. May benefit with trial of convalescent plasma infusion? -Echo performed showed EF of 50% with diastolic dysfunction. He is on Lasix. - Have to wait until he gets better. Since clinical prognosis seems to be quite guarded as well as pulmonary d ysfunction goes I am consulting palliative as well. Patient is full code
[2020-02-02 18:26] LABS: Legionella Urinary Ag Negative (Negative); Strep pneumo Urine Ag NEGATIVE (NEGATIVE)
--- NOTE | 2020-02-02 19:36 | CON ---
DATE OF CONSULTATION: 02/02/2020 REASON FOR CONSULTATION: Pneumonia. HISTORY OF PRESENT ILLNESS: A 69-year-old, looks like first admission to this hospital, who has a history of epilepsy, for which he takes oxcarbazepine and Keppra and has had worsening dyspnea since November, I think the duration of illness is miss-stated in the ER physician's note. I double-checked this and the patient clearly remembers progressively worsening symptoms since mid November, so [place] and he had a hard time in getting to any medical clinic to be able to be evaluated, so eventually things got so bad that he called EMS and they checked O2 saturations, 88% on room air. He did not have any headaches. No sputum production, very little. No hemoptysis. No chest pain. No documented fever. No abdominal pain or diarrhea. No genitourinary symptoms. He is actually constipated. No joint symptoms. No skin disorder. MEDICAL HISTORY: 1. There is reported COPD history. He did not acknowledge that. 2. Epilepsy. His last seizure activity was in September this year. 3. BPH. 4. Hyperlipidemia. 5. Hypertension. SOCIAL HISTORY: Current smoker. ALLERGIES: NAPROSYN. CURRENT MEDICATIONS: 1. Aspirin. 2. Lipitor. 3. Dulcolax. 4. Tums. 5. Doxycycline. 6. Lovenox. 7. Lasix. 8. Robitussin. 9. Keppra. 10. Levaquin. 11. Prednisone. 12. Flomax. PHYSICAL EXAMINATION: VITAL SIGNS: He has been afebrile since admission, BP 130/80, heart rate 82, O2 saturation 97, he is on high-flow nasal cannula at 50. GENERAL: Appears tachypneic, sitting by the bedside. He is able to talk, but has not in full sentences. He is oriented. SKIN: Did not show any abnormalities. Peripheral IV access. He does not have a Griggs catheter. No lymphadenopathy. HEENT: Ocular movements conjugate. Oral cavity with still quite a few teeth in place. NECK: Supple. No jugular venous distention. LUNGS: Scattered inspiratory crackles, kind of cellophane like, more prominent at the bases, but also present elsewhere. No wheezing. The lung excursions appear to be limited. He may have restrictive lung disease from his pneumonitis. HEART: S1 and S2. No S3. No murmurs. ABDOMEN: Soft, not distended or tender. No ascites. No bladder distention. EXTREMITIES: No joint inflammatory activity. No edema. Pulses 1+ in dorsalis pedis. Plantar responses are flexor. Moves extremities equally. NEUROLOGIC: He is awake and oriented. Recollection is normal. Speech is normal except that he has to stop because of dyspnea. LABORATORY DATA: White cell count 17.4, hemoglobin 11.7, and platelets 433 with 86% neutrophils. D-dimer 4.11. A pH of 7.44, pCO2 of 47, and PO2 102. Sodium 134, creatinine 0.95, AST 110, ALT 163, and albumin 3.1. CRP 26. Urinalysis with protein of 300, urobilinogen 4. SARS-CoV, we have a test on 01/14, another one on the , and the final one yesterday 01/31 with negative results. He had a CT angiogram of chest, which showed no evidence of PE. Diffuse peripheral ground- glass opacities and some mediastinal and hilar lymph node enlargement. ASSESSMENT: 1. History of chronic obstructive pulmonary disease, not well documented. 2. Hypertension. 3. Epilepsy, on chronic Keppra and oxcarbazepine. 4. 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 DISCUSSION: The differential diagnosis includes chronic interstitial pneumonia either secondary to inhaled antigen; for example, cryptogenic organizing pneumonia or usual interstitial pneumonia, either primary or secondary to exogenous insults, such as inhaled antigen, hypersensitivity pneumonitis, or a drug-induced pneumonitis. Keppra can be associated with the eosinophilic pneumonia. Covid infection is less likely in view of the chronicity of symptoms, although it is not ruled out since he could have theoretically never been tested and be experiencing the aftermath, so will submit submit antibody test since he could have had the infection a few weeks ago and never got tested, and so if the antibody is negative, then that would pretty much settle the question of having had COVID infection in the negative. If the antibody is positive, then we will have to consider that as a possibility, i.e. the patient with chronic aftermath following an acute episode of COVID. So, if the antibody is negative, then we will have to turn our attention to the possibility of other forms of chronic pneumonitis, and in that reference, he might need a bronchoscopy and washout. Submit lavage for testing for cytology. The other possibility of autoimmune syndrome would be another concern. He does have proteinuria of 300 and abnormal liver function tests and thrombocytosis. The lung findings are not typical of ANCA associated pneumonitis. Other fungal and mycobacterial infections are less likely. Bacterial pneumonia or community-acquired pneumonia with the usual bacterial pathogens would be unlikely to have this almost 2 months duration. I would not expect him to respond to routine antimicrobial therapy, although it may respond to corticosteroids. Job ID: [id number] [facility]
[2020-02-02] MEDS: Atorvastatin Calcium 20 MG TAB PO SCH (20:29)
[2020-02-03] MEDS: Polyethylene Glycol 3350 17 GM Packet PO SCH ×2 (09:37→22:42)
[2020-02-03] MEDS: Furosemide 40 MG TAB PO SCH (09:38)
[2020-02-03] MEDS: guaiFENesin ER 600 MG TAB PO SCH ×2 (09:38→21:00)
[2020-02-03] MEDS: levETIRAcetam 500 MG TAB PO SCH ×2 (09:38→21:00)
[2020-02-03] MEDS: predniSONE 50 MG TAB PO SCH (09:38)
[2020-02-03] MEDS: Carvedilol 3.125 MG TAB PO SCH ×2 (09:38→21:00)
[2020-02-03] MEDS: Aspirin 325 MG TAB PO SCH (09:38)
[2020-02-03] MEDS: Doxycycline 100 MG CAP PO SCH ×2 (09:38→21:00)
[2020-02-03] MEDS: Tamsulosin HCl 0.4 MG CAP PO SCH (09:39)
[2020-02-03] MEDS: Lisinopril 2.5 MG TAB PO SCH (09:39)
[2020-02-03] MEDS: OXcarbazepine 300 MG TAB PO SCH (09:39)
[2020-02-03] MEDS: Enoxaparin Sodium 40 MG/0.4 ML SYRINGE SC SCH (09:40)
[2020-02-03 09:48] LABS: #Basophils 0.1 thou/uL (0.0-0.2); #Eosinphils 1.2 thou/uL (0.0-0.7); #Lymphocytes 1.7 thou/uL (1.20-3.40); #Monocytes 1.3 thou/uL (0.11-0.59); %Basophils 0.4 % (0.0-1.0); %Eosinophils 8.1 % (0.0-10.0); %Lymphocytes 10.8 % (21.0-51.0); %Monocytes 8.3 % (0.0-10.0); %Neutrophils 72.4 % (42.0-75.0); Hemoglobin 12.6 g/dL (14.0-18.0); Mean Corpuscular HGB CONC 32.4 g/dL (32.0-36.0); Mean Corpuscular Hemoglobin 29.2 pg (27.0-31.0); Mean Corpuscular Volume 90.1 fL (78.0-98.0); Mean Platelet Volume 8.1 fL (7.4-10.4); Platelet Count 403 thou/uL (130-400); RBC Distribution Width 12.9 % (11.5-14.5); Red Blood Cell (RBC) Count 4.32 mill/uL (4.70-6.10); White Blood Cell (WBC) Count 15.2 thou/uL (4.8-10.8)
[2020-02-03 10:07] LABS: Anion Gap 13 mmol/L (10-20); BUN (Urea Nitrogen) 16 mg/dL (8.4-25.7); Calc. Creatinine Clearance 101 mL/min (70-130); Calcium 9.1 mg/dL (7.8-10.44); Carbon Dioxide 34 mmol/L (23-31); Chloride 90 mmol/L (98-107); Estimated GFR-MDRD 80; Glucose 105 mg/dL (83-110); Potassium 4.1 mmol/L (3.5-5.1); Sodium 133 mmol/L (136-145)
[2020-02-03 12:20] LABS: SARS-CoV-2 IgG Ab Non-Reactive (NonReactive); SARS-CoV-2 IgG Index 0.56 S/CO (< 1.40)
--- NOTE | 2020-02-03 12:41 | PDOC.HOSPP ---
- Subjective Encounter Date: 02/03/20 Encounter Time: 10:10 Subjective: Patient states that he remains the same. He is sitting in the chair. Not in any acute distress. He is still on high flow oxygen with the 50% FiO2. - Objective Vital Signs & Weight: Vital Signs (12 hours) Temp Pulse Resp BP Pulse Ox 02/03/20 10:55 82 20 100 02/03/20 08:00 100 02/03/20 07:45 98.2 F 88 16 127/74 100 02/03/20 07:01 80 16 100 Weight Admit Weight 216 lb 11.2 oz Weight 216 lb 11.2 oz Most Recent Monitor Data Heart Rate from ECG 101 NIBP 146/73 NIBP BP-Mean 97 Respiration from ECG 21 SpO2 94 I&O: 02/02/20 02/03/20 02/04/20 06:59 06:59 06:59 Intake Total 800 Output Total 250 800 Balance -250 0 Result Diagrams: 02/03/20 09:28 02/03/20 09:28 Hospitalist ROS - Medication Medications: Active Medications Generic Name Dose Route Start Last Admin Trade Name Freq PRN Reason Stop Dose Admin Acetaminophen 650 mg 01/15/20 13:32 01/16/20 06:38 Acetaminophen 325 Mg Tab PO 650 mg Q4H PRN Administration Headache/Fever/Mild Pain (1-3) Albuterol/Ipratropium 3 ml 01/21/20 10:30 02/03/20 10:55 Ipratropium/Albuterol Sulfate 3 Ml Neb NEB 3 ml [id number] NEERU Administration Aspirin 325 mg 01/16/20 09:00 02/03/20 09:38 Aspirin 325 Mg Tab PO 325 mg DAILY NEERU Administration Atorvastatin Calcium 20 mg 01/16/20 21:00 02/02/20 20:29 Atorvastatin Calcium 20 Mg Tab PO 20 mg HS NEERU Administration Bisacodyl 10 mg 01/20/20 07:50 01/21/20 08:19 Bisacodyl 5 Mg Tab PO 10 mg DAILYPRN PRN Administration Constipation Carvedilol 3.125 mg 01/23/20 21:00 02/03/20 09:38 Carvedilol 3.125 Mg Tab PO 3.125 mg BID NEERU Administration Doxycycline Hyclate 100 mg 01/29/20 21:00 02/03/20 09:38 Doxycycline 100 Mg Cap PO 02/05/20 21:01 100 mg BID NEERU Administration Enoxaparin Sodium 40 mg 01/22/20 09:00 02/03/20 09:40 Enoxaparin Sodium 40 Mg/0.4 Ml Syringe SC 40 mg 0900 NEERU Administration Furosemide 40 mg 02/02/20 09:00 02/03/20 09:38 Furosemide 40 Mg Tab PO 40 mg DAILY NEERU Administration Guaifenesin 200 mg 01/20/20 07:50 01/26/20 22:33 Diabetic Tussin 200 Mg/10 Ml Udcup PO 200 mg Q4H PRN Administration Cough Guaifenesin 600 mg 01/21/20 21:00 02/03/20 09:38 Guaifenesin Er 600 Mg Tab PO 600 mg Q12HR NEERU Administration Guaifenesin/Dextromethorphan 15 ml 01/15/20 23:13 01/26/20 04:54 Guaifenesin Dm 100-10/5 Ml Udcup PO 15 ml Q4H PRN Administration Cough Levetiracetam 1,000 mg 01/16/20 09:00 02/03/20 09:38 Levetiracetam 500 Mg Tab PO 1,000 mg QAM NEERU Administration Levetiracetam 1,500 mg 01/16/20 21:00 02/02/20 20:28 Levetiracetam 500 Mg Tab PO 1,500 mg QPM NEERU Administration Levofloxacin 750 mg 01/24/20 09:00 02/03/20 09:39 Levofloxacin 750 Mg Tab PO 750 mg DAILY NEERU Administration Lisinopril 2.5 mg 01/21/20 09:00 02/03/20 09:39 Lisinopril 2.5 Mg Tab PO 2.5 mg DAILY NEERU Administration Loratadine 10 mg 01/20/20 07:50 02/02/20 23:36 Loratadine 10 Mg Tab PO 10 mg DAILYPRN PRN Administration Sinus Symptoms Oxcarbazepine 600 mg 01/17/20 09:00 02/03/20 09:39 Oxcarbazepine 300 Mg Tab PO 600 mg DAILY NEERU Administration Polyethylene Glycol 17 gm 01/21/20 10:00 02/03/20 09:37 Polyethylene Glycol 3350 17 Gm Packet PO 17 gm Q12H NEERU Administration Prednisone 50 mg 01/30/20 08:00 02/03/20 09:38 Prednisone 50 Mg Tab PO 50 mg QAM-WM NEERU Administration Sodium Chloride 10 ml 01/20/20 09:00 02/03/20 09:40 Flush - Normal Saline 10 Ml Syringe IVF Not Given Q12HR NEERU Sodium Chloride 10 ml 01/20/20 08:15 01/23/20 13:56 Flush - Normal Saline 10 Ml Syringe IVF 10 ml PRN PRN Administration Saline Flush Tamsulosin HCl 0.4 mg 01/16/20 09:00 02/03/20 09:39 Tamsulosin Hcl 0.4 Mg Cap PO 0.4 mg DAILY NEERU Administration - Exam General Appearance: NAD, awake alert Eye: PERRL Neck: supple Heart: RRR Respiratory: CTAB, normal chest expansion Gastrointestinal: soft, normal bowel sounds Neurological: no focal deficits Psychiatric: A&O x 3 Hosp A/P - Plan (1) Acute combined systolic and diastolic congestive heart failure Code(s): I50.41 - ACUTE COMBINED SYSTOLIC AND DIASTOLIC (CONGESTIVE) HRT FAIL Status: Ruled-out (2) Acute respiratory failure with hypoxia Code(s): J96.01 - ACUTE RESPIRATORY FAILURE WITH HYPOXIA Status: Acute (3) Pneumonia Code(s): J18.9 - PNEUMONIA, UNSPECIFIED ORGANISM Status: Acute Qualifiers: Pneumonia type: due to Pneumococcus Laterality: right Lung location: lower lobe of lung Qualified Code(s): J13 - Pneumonia due to Streptococcus pneumoniae (4) Type 2 HI (myocardial infarction) Code(s): I21.A1 - MYOCARDIAL INFARCTION TYPE 2 Status: Acute (5) HTN (hypertension) Code(s): I10 - ESSENTIAL (PRIMARY) HYPERTENSION Status: Chronic Qualifiers: Hypertension type: essential hypertension Qualified Code(s): I10 - Essential (primary) hypertension (6) Seizure disorder Code(s): G40.909 - EPILEPSY, UNSP, NOT INTRACTABLE, WITHOUT STATUS EPILEPTICUS Status: Chronic Community-acquired pneumonia Acute respiratory failure with hypoxia due to bilateral pneumonia. Hypoxia seems to be improving-- on high flow oxygen with 93% sat.--Plan to be weaned off Urine culture of show mixed benigno Flu test was negative. Blood cultures negative. -He is on cefepime, which is started on . Since cultures negative and clinically getting better we will stop the IV cefepime time and continue with Levaquin. Worsening hypercapnia Worsening hypoxia -Even though arterial blood gas shows pH of 7.44 his PCO2 is worsening from January 20. And he is retaining CO2. He is a he is at risk for respiratory distress. Trial of BiPAP is encouraged but it appears patient does not want to wear the BiPAP. Repeat Covid test is negative. In the last 3 days his white count is elevated [yes, he is on prednisone] CXR of 4th -bilateral infiltrate He is on antibiotic both Levaquin and doxycycline along with prednisone -He is not able to be weaned from high flow oxygen and clinically he is getting worse. -Even though Covid is negative, I could not completely clinically rule out, so I am going to consult infectious disease. May benefit with trial of convalescent plasma infusion? -Echo performed showed EF of 50% with diastolic dysfunction. He is on Lasix. His pulmonary dysfunction has a wide differential diagnosis including interstitial lung disease and vasculitis. Vasculitis is low on the differential as he has no other organ symptoms. Covid antibody test being sent, per ID recommendation. Since his pulonary recovery seems to be quite guarded, I am consulting palliative care as well. Patient is full code
[2020-02-03 16:31] LABS: SARS-CoV-2 IgG Ab Non-Reactive (NonReactive); SARS-CoV-2 IgG Index 0.53 S/CO (< 1.40)
--- NOTE | 2020-02-03 18:18 | PRG ---
DATE OF SERVICE: 02/03/2020 Carroll Catherine is apparently clinically unchanged. He is still on high-flow oxygen. His sats are 100%. We need to be weaning oxygen. Blood pressure 127/74, respiratory rates in the teens. Infectious Disease saw him yesterday. His COVID screens are repeatedly negative reportedly. Patchy bilateral infiltrates. This could be viral pneumonitis, noncardiogenic pulmonary edema associated with localized bacterial process. It is most less likely that is a vasculitis or alveolar hemorrhage syndrome. He needs to have his oxygen weaned back to a cannula as tolerated. He certainly is set up possibly for aspiration given his severe deconditioning and this could be a chemical pneumonitis. Dr. Bhagat' input is appreciated on covering for Dr. Granados. If he has not had a swallowing evaluation, he needs one. He has now been in the hospital since January 14. Dr. Mroales's initial impression in the middle of December was that he had a community-acquired right lower lobe pneumonia. Deconditioning is a big factor. Job ID: [id number]
[2020-02-03] MEDS: Atorvastatin Calcium 20 MG TAB PO SCH (21:00)
[2020-02-03] MEDS: Loratadine 10 MG TAB PO PRN (23:30)
[2020-02-04] MEDS ORDERED: Furosemide 40 MG/4 ML VIAL IVP SCH (08:29)
[2020-02-04] MEDS: Tamsulosin HCl 0.4 MG CAP PO SCH (09:31)
[2020-02-04] MEDS: OXcarbazepine 300 MG TAB PO SCH (09:31)
[2020-02-04] MEDS: Carvedilol 3.125 MG TAB PO SCH ×2 (09:31→20:09)
[2020-02-04] MEDS: levETIRAcetam 500 MG TAB PO SCH ×3 (09:31→20:10)
[2020-02-04] MEDS: predniSONE 50 MG TAB PO SCH (09:31)
[2020-02-04] MEDS: Aspirin 325 MG TAB PO SCH (09:31)
[2020-02-04] MEDS: Lisinopril 2.5 MG TAB PO SCH (09:31)
[2020-02-04] MEDS: Polyethylene Glycol 3350 17 GM Packet PO SCH ×2 (09:32→20:11)
[2020-02-04] MEDS: guaiFENesin ER 600 MG TAB PO SCH ×2 (09:32→20:07)
[2020-02-04] MEDS: Enoxaparin Sodium 40 MG/0.4 ML SYRINGE SC SCH (09:32)
[2020-02-04] MEDS: Doxycycline 100 MG CAP PO SCH ×2 (09:35→20:06)
--- NOTE | 2020-02-04 09:50 | PRG ---
DATE OF SERVICE: 02/04/2020 OBJECTIVE: VITAL SIGNS: Mr. Catherine is afebrile. Heart rates in the 90s, respiratory rates in the teens, oximetry is 93% on high-flow, and blood pressure 149/81. LUNGS: Remarkable for crackles at his right base. Breath sounds are decreased at his left base secondary to his elevated hemidiaphragm. HEART: Regular rhythm. ABDOMEN: Soft. EXTREMITIES: Without edema. IMPRESSION: 1. Pneumonia. 2. ? component of pulmonary edema. I will give him IV Lasix today. 3. Chronically elevated left hemidiaphragm. 4. Extreme deconditioning after being in the hospital for three weeks. 5. ? swallowing dysfunction. I do not think he would tolerate a barium study but a bedside swallowing evaluation would be appropriate. 6. Mild metabolic alkalosis. We will continue to follow. 7. Left ventricular systolic dysfunction with ejection fraction of 45% to 50%. This might play at least in part a role with his failure to improve. Job ID: [id number]
--- NOTE | 2020-02-04 12:24 | PDOC.HOSPP ---
- Subjective Encounter Date: 02/04/20 Encounter Time: 10:40 Subjective: He is sitting in the chair. He appears well this morning. He is still on high flow oxygen but satting better at 97% this is the first time I have seen his oxygen sats improving. - Objective Vital Signs & Weight: Vital Signs (12 hours) Temp Pulse Resp BP Pulse Ox 02/04/20 10:33 96 20 97 02/04/20 08:00 97.7 F 91 16 149/81 H 93 L 02/04/20 07:19 90 L 02/04/20 07:18 102 H 20 90 L Weight Admit Weight 216 lb 11.2 oz Weight 216 lb 11.2 oz Most Recent Monitor Data Heart Rate from ECG 101 NIBP 146/73 NIBP BP-Mean 97 Respiration from ECG 21 SpO2 94 I&O: 02/03/20 02/04/20 02/05/20 06:59 06:59 06:59 Intake Total 800 1480 Output Total 800 600 Balance 0 880 Result Diagrams: 02/03/20 09:28 02/03/20 09:28 Hospitalist ROS - Medication Medications: Active Medications Generic Name Dose Route Start Last Admin Trade Name Freq PRN Reason Stop Dose Admin Acetaminophen 650 mg 01/15/20 13:32 01/16/20 06:38 Acetaminophen 325 Mg Tab PO 650 mg Q4H PRN Administration Headache/Fever/Mild Pain (1-3) Albuterol/Ipratropium 3 ml 01/21/20 10:30 02/04/20 10:33 Ipratropium/Albuterol Sulfate 3 Ml Neb NEB 3 ml [id number] NEERU Administration Aspirin 325 mg 01/16/20 09:00 02/04/20 09:31 Aspirin 325 Mg Tab PO 325 mg DAILY NEERU Administration Atorvastatin Calcium 20 mg 01/16/20 21:00 02/03/20 21:00 Atorvastatin Calcium 20 Mg Tab PO 20 mg HS NEERU Administration Bisacodyl 10 mg 01/20/20 07:50 01/21/20 08:19 Bisacodyl 5 Mg Tab PO 10 mg DAILYPRN PRN Administration Constipation Carvedilol 3.125 mg 01/23/20 21:00 02/04/20 09:31 Carvedilol 3.125 Mg Tab PO 3.125 mg BID NEERU Administration Doxycycline Hyclate 100 mg 01/29/20 21:00 02/04/20 09:35 Doxycycline 100 Mg Cap PO 02/05/20 21:01 100 mg BID NEERU Administration Enoxaparin Sodium 40 mg 01/22/20 09:00 02/04/20 09:32 Enoxaparin Sodium 40 Mg/0.4 Ml Syringe SC 40 mg 0900 NEERU Administration Guaifenesin 200 mg 01/20/20 07:50 01/26/20 22:33 Diabetic Tussin 200 Mg/10 Ml Udcup PO 200 mg Q4H PRN Administration Cough Guaifenesin 600 mg 01/21/20 21:00 02/04/20 09:32 Guaifenesin Er 600 Mg Tab PO 600 mg Q12HR NEERU Administration Guaifenesin/Dextromethorphan 15 ml 01/15/20 23:13 01/26/20 04:54 Guaifenesin Dm 100-10/5 Ml Udcup PO 15 ml Q4H PRN Administration Cough Levetiracetam 1,000 mg 01/16/20 09:00 02/04/20 09:31 Levetiracetam 500 Mg Tab PO 1,000 mg QAM NEERU Administration Levetiracetam 1,500 mg 01/16/20 21:00 02/03/20 21:00 Levetiracetam 500 Mg Tab PO 1,500 mg QPM NEERU Administration Lisinopril 2.5 mg 01/21/20 09:00 02/04/20 09:31 Lisinopril 2.5 Mg Tab PO 2.5 mg DAILY NEERU Administration Loratadine 10 mg 01/20/20 07:50 02/03/20 23:30 Loratadine 10 Mg Tab PO 10 mg DAILYPRN PRN Administration Sinus Symptoms Oxcarbazepine 600 mg 01/17/20 09:00 02/04/20 09:31 Oxcarbazepine 300 Mg Tab PO 600 mg DAILY NEERU Administration Polyethylene Glycol 17 gm 01/21/20 10:00 02/04/20 09:32 Polyethylene Glycol 3350 17 Gm Packet PO 17 gm Q12H NEERU Administration Sodium Chloride 10 ml 01/20/20 09:00 02/04/20 09:36 Flush - Normal Saline 10 Ml Syringe IVF 10 ml Q12HR NEERU Administration Sodium Chloride 10 ml 01/20/20 08:15 01/23/20 13:56 Flush - Normal Saline 10 Ml Syringe IVF 10 ml PRN PRN Administration Saline Flush Tamsulosin HCl 0.4 mg 01/16/20 09:00 02/04/20 09:31 Tamsulosin Hcl 0.4 Mg Cap PO 0.4 mg DAILY NEERU Administration - Exam General Appearance: NAD, awake alert, ill appearing Eye: PERRL, anicteric sclera ENT: normocephalic atraumatic Neck: supple Heart: RRR Respiratory: CTAB, normal chest expansion Gastrointestinal: soft, normal bowel sounds Neurological: no focal deficits Psychiatric: A&O x 3 Hosp A/P - Plan (1) Acute combined systolic and diastolic congestive heart failure Code(s): I50.41 - ACUTE COMBINED SYSTOLIC AND DIASTOLIC (CONGESTIVE) HRT FAIL Status: Ruled-out (2) Acute respiratory failure with hypoxia Code(s): J96.01 - ACUTE RESPIRATORY FAILURE WITH HYPOXIA Status: Acute (3) Pneumonia Code(s): J18.9 - PNEUMONIA, UNSPECIFIED ORGANISM Status: Acute Qualifiers: Pneumonia type: due to Pneumococcus Laterality: right Lung location: lower lobe of lung Qualified Code(s): J13 - Pneumonia due to Streptococcus pneumoniae (4) Type 2 ND (myocardial infarction) Code(s): I21.A1 - MYOCARDIAL INFARCTION TYPE 2 Status: Acute (5) HTN (hypertension) Code(s): I10 - ESSENTIAL (PRIMARY) HYPERTENSION Status: Chronic Qualifiers: Hypertension type: essential hypertension Qualified Code(s): I10 - Essential (primary) hypertension (6) Seizure disorder Code(s): G40.909 - EPILEPSY, UNSP, NOT INTRACTABLE, WITHOUT STATUS EPILEPTICUS Status: Chronic Community-acquired pneumonia Acute respiratory failure with hypoxia due to bilateral pneumonia. Hypoxia seems to be improving-- on high flow oxygen with 93% sat.--Plan to be weaned off Urine culture of show mixed benigno Flu test was negative. Blood cultures negative. -He is on cefepime, which is started on . Since cultures negative and clinically getting better we will stop the IV cefepime time and continue with Levaquin. Worsening hypercapnia Worsening hypoxia CXR of -bilateral infiltrate He is on antibiotic both Levaquin and doxycycline along with prednisone -Even though Covid is negative, I could not completely clinically rule out, so I am going to consult infectious disease. May benefit with trial of convalescent plasma infusion? -Echo performed showed EF of 50% with diastolic dysfunction. He is on Lasix. His pulmonary dysfunction has a wide differential diagnosis including interstitial lung disease and vasculitis. Covid antibody test being sent, per ID recommendation.----------------> came back nonreactive -Urine strep pneumonia antigen negative -urine listeria and hemophilia antigen negative 8th satting better at 97% this is the first time I have seen his oxygen sats improving. Since his pulonary recovery seems to be quite guarded, I am consulting palliative care as well. Patient is full code Difficult placement due to the requirement for high flow oxygen.
[2020-02-04] MEDS: Atorvastatin Calcium 20 MG TAB PO SCH (20:08)
[2020-02-04] MEDS: Loratadine 10 MG TAB PO PRN (23:36)
[2020-02-05 06:21] LABS: #Basophils 0.1 thou/uL (0.0-0.2); #Eosinphils 0.9 thou/uL (0.0-0.7); #Monocytes 1.3 thou/uL (0.11-0.59); #Neutrophils 10.3 thou/uL (1.40-6.50); %Basophils 0.4 % (0.0-1.0); %Eosinophils 6.3 % (0.0-10.0); %Lymphocytes 13.9 % (21.0-51.0); %Monocytes 9.1 % (0.0-10.0); %Neutrophils 70.2 % (42.0-75.0); Hemoglobin 11.5 g/dL (14.0-18.0); Mean Corpuscular Hemoglobin 28.9 pg (27.0-31.0); Mean Corpuscular Volume 90.2 fL (78.0-98.0); Mean Platelet Volume 7.9 fL (7.4-10.4); Platelet Count 348 thou/uL (130-400); RBC Distribution Width 12.6 % (11.5-14.5); Red Blood Cell (RBC) Count 3.97 mill/uL (4.70-6.10); White Blood Cell (WBC) Count 14.6 thou/uL (4.8-10.8)
[2020-02-05] MEDS: Polyethylene Glycol 3350 17 GM Packet PO SCH ×2 (08:58→20:46)
[2020-02-05] MEDS: Aspirin 325 MG TAB PO SCH (09:00)
[2020-02-05] MEDS: Tamsulosin HCl 0.4 MG CAP PO SCH (09:00)
[2020-02-05] MEDS: OXcarbazepine 300 MG TAB PO SCH (09:00)
[2020-02-05] MEDS: Doxycycline 100 MG CAP PO SCH ×2 (09:01→20:50)
[2020-02-05] MEDS: Carvedilol 3.125 MG TAB PO SCH ×2 (09:01→20:51)
[2020-02-05] MEDS: Enoxaparin Sodium 40 MG/0.4 ML SYRINGE SC SCH (09:01)
[2020-02-05] MEDS: guaiFENesin ER 600 MG TAB PO SCH ×2 (09:01→20:51)
[2020-02-05] MEDS: Lisinopril 2.5 MG TAB PO SCH (09:01)
[2020-02-05] MEDS: predniSONE 20 MG TAB PO SCH (09:01)
[2020-02-05] MEDS: levETIRAcetam 500 MG TAB PO SCH ×2 (09:02→20:51)
--- NOTE | 2020-02-05 09:18 | PRG ---
DATE OF SERVICE: 02/05/2020 SUBJECTIVE: Mr. Catherine is doing about the same. He had no new complaints today. OBJECTIVE: VITAL SIGNS: Temperature is 98.1 with no recorded fever in quite some time, his pulse is 91, O2 saturation running 97% on 35% high-flow nasal cannula, blood pressure 122/61. HEENT: Unremarkable. NECK: No adenopathy or JVD. LUNGS: Breath sounds are actually good on the right, but I hear some crackles on the left. CARDIAC: S1 and S2. Regular. ABDOMEN: Soft. EXTREMITIES: No edema. LABORATORY DATA: White count 14.6, hematocrit 35.8, and platelet count 348. Sodium 133, potassium 4.1, chloride 90, CO2 of 34, BUN 16, creatinine 0.9, and glucose 105. IMAGING STUDIES: I reviewed his x-ray from 01/30. ASSESSMENT: 1. Pneumonia. 2. Question of chronic aspiration. RECOMMENDATIONS: The patient is currently on doxycycline, which was started on 01/[address] Granados, that should probably be stopped after today's doses. He is on prednisone and that should be tapered over 2 weeks. I would recommend tapering down the nasal cannula oxygen and getting him to a jail. In an ideal world, he would need a bronchoscopy to further evaluate for malignancy, but I do not think that could be performed right now without putting a risk for being intubated and staying on mechanical ventilation for quite some time. He was not comfortable pursuing that option at this time. Job ID: [id number]
--- NOTE | 2020-02-05 10:16 | PDOC.HOSPP ---
- Subjective Encounter Date: 02/05/20 Encounter Time: 10:01 Subjective: SOB , on high flow O2 per NC - Objective Vital Signs & Weight: Vital Signs (12 hours) Temp Pulse Resp BP BP Pulse Ox 02/05/20 09:01 91 122/61 02/05/20 08:00 93 L 02/05/20 07:26 98.1 F 91 20 122/61 93 L 02/05/20 07:17 108 H 20 88 L 02/04/20 22:14 93 20 100 Weight Admit Weight 216 lb 11.2 oz Weight 216 lb 11.2 oz Most Recent Monitor Data Heart Rate from ECG 101 NIBP 146/73 NIBP BP-Mean 97 Respiration from ECG 21 SpO2 94 I&O: 02/04/20 02/05/20 02/06/20 06:59 06:59 06:59 Intake Total 1480 1390 240 Output Total 600 1400 Balance 880 -10 240 Result Diagrams: 02/05/20 06:04 02/03/20 09:28 Hospitalist ROS - Medication Medications: Active Medications Generic Name Dose Route Start Last Admin Trade Name Freq PRN Reason Stop Dose Admin Acetaminophen 650 mg 01/15/20 13:32 01/16/20 06:38 Acetaminophen 325 Mg Tab PO 650 mg Q4H PRN Administration Headache/Fever/Mild Pain (1-3) Albuterol/Ipratropium 3 ml 01/21/20 10:30 02/05/20 07:17 Ipratropium/Albuterol Sulfate 3 Ml Neb NEB 3 ml [id number] NEERU Administration Aspirin 325 mg 01/16/20 09:00 02/05/20 09:00 Aspirin 325 Mg Tab PO 325 mg DAILY NEERU Administration Atorvastatin Calcium 20 mg 01/16/20 21:00 02/04/20 20:08 Atorvastatin Calcium 20 Mg Tab PO 20 mg HS NEERU Administration Bisacodyl 10 mg 01/20/20 07:50 01/21/20 08:19 Bisacodyl 5 Mg Tab PO 10 mg DAILYPRN PRN Administration Constipation Carvedilol 3.125 mg 01/23/20 21:00 02/05/20 09:01 Carvedilol 3.125 Mg Tab PO 3.125 mg BID NEERU Administration Doxycycline Hyclate 100 mg 01/29/20 21:00 02/05/20 09:01 Doxycycline 100 Mg Cap PO 02/05/20 21:01 100 mg BID NEERU Administration Enoxaparin Sodium 40 mg 01/22/20 09:00 02/05/20 09:01 Enoxaparin Sodium 40 Mg/0.4 Ml Syringe SC 40 mg 0900 NEERU Administration Guaifenesin 200 mg 01/20/20 07:50 01/26/20 22:33 Diabetic Tussin 200 Mg/10 Ml Udcup PO 200 mg Q4H PRN Administration Cough Guaifenesin 600 mg 01/21/20 21:00 02/05/20 09:01 Guaifenesin Er 600 Mg Tab PO 600 mg Q12HR NEERU Administration Guaifenesin/Dextromethorphan 15 ml 01/15/20 23:13 01/26/20 04:54 Guaifenesin Dm 100-10/5 Ml Udcup PO 15 ml Q4H PRN Administration Cough Levetiracetam 1,000 mg 01/16/20 09:00 02/05/20 09:02 Levetiracetam 500 Mg Tab PO 1,000 mg QAM NEERU Administration Levetiracetam 1,500 mg 01/16/20 21:00 02/04/20 20:10 Levetiracetam 500 Mg Tab PO 1,500 mg QPM NEERU Administration Lisinopril 2.5 mg 01/21/20 09:00 02/05/20 09:01 Lisinopril 2.5 Mg Tab PO 2.5 mg DAILY NEERU Administration Loratadine 10 mg 01/20/20 07:50 02/04/20 23:36 Loratadine 10 Mg Tab PO 10 mg DAILYPRN PRN Administration Sinus Symptoms Oxcarbazepine 600 mg 01/17/20 09:00 02/05/20 09:00 Oxcarbazepine 300 Mg Tab PO 600 mg DAILY NEERU Administration Polyethylene Glycol 17 gm 01/21/20 10:00 02/05/20 08:58 Polyethylene Glycol 3350 17 Gm Packet PO 17 gm Q12H NEERU Administration Prednisone 40 mg 02/05/20 08:00 02/05/20 09:01 Prednisone 20 Mg Tab PO 40 mg QAM-WM NEERU Administration Sodium Chloride 10 ml 01/20/20 09:00 02/05/20 09:01 Flush - Normal Saline 10 Ml Syringe IVF Not Given Q12HR NEERU Sodium Chloride 10 ml 01/20/20 08:15 01/23/20 13:56 Flush - Normal Saline 10 Ml Syringe IVF 10 ml PRN PRN Administration Saline Flush Tamsulosin HCl 0.4 mg 01/16/20 09:00 02/05/20 09:00 Tamsulosin Hcl 0.4 Mg Cap PO 0.4 mg DAILY NEERU Administration - Exam General Appearance: awake alert Neck: no JVD Heart: RRR, no murmur Respiratory - other findings: bilat rales, R> L Gastrointestinal: soft, non-tender, normal bowel sounds Extremities: 2+ LE edema Hosp A/P (1) Acute combined systolic and diastolic congestive heart failure Code(s): I50.41 - ACUTE COMBINED SYSTOLIC AND DIASTOLIC (CONGESTIVE) HRT FAIL Status: Ruled-out (2) Acute respiratory failure with hypoxia Code(s): J96.01 - ACUTE RESPIRATORY FAILURE WITH HYPOXIA Status: Acute (3) Pneumonia Code(s): J18.9 - PNEUMONIA, UNSPECIFIED ORGANISM Status: Acute Qualifiers: Pneumonia type: due to Pneumococcus Laterality: right Lung location: lower lobe of lung Qualified Code(s): J13 - Pneumonia due to Streptococcus pneumoniae (4) Type 2 CA (myocardial infarction) Code(s): I21.A1 - MYOCARDIAL INFARCTION TYPE 2 Status: Acute (5) HTN (hypertension) Code(s): I10 - ESSENTIAL (PRIMARY) HYPERTENSION Status: Chronic Qualifiers: Hypertension type: essential hypertension Qualified Code(s): I10 - Esse ntial (primary) hypertension (6) Seizure disorder Code(s): G40.909 - EPILEPSY, UNSP, NOT INTRACTABLE, WITHOUT STATUS EPILEPTICUS Status: Chronic (7) Cardiomyopathy Code(s): I42.9 - CARDIOMYOPATHY, UNSPECIFIED Status: Acute - Plan O2 supplementation discuss with Pulmonology cont coreg, keppra, as , etc DC doxycycline after PM dose placement planning
[2020-02-05] MEDS: Atorvastatin Calcium 20 MG TAB PO SCH (20:51)
[2020-02-05] MEDS: Loratadine 10 MG TAB PO PRN (23:53)
[2020-02-06] MEDS: OXcarbazepine 300 MG TAB PO SCH (09:36)
[2020-02-06] MEDS: Aspirin 325 MG TAB PO SCH (09:36)
[2020-02-06] MEDS: levETIRAcetam 500 MG TAB PO SCH ×2 (09:36→20:58)
[2020-02-06] MEDS: Tamsulosin HCl 0.4 MG CAP PO SCH (09:36)
[2020-02-06] MEDS: predniSONE 20 MG TAB PO SCH (09:36)
[2020-02-06] MEDS: guaiFENesin ER 600 MG TAB PO SCH ×2 (09:37→20:58)
[2020-02-06] MEDS: Lisinopril 2.5 MG TAB PO SCH (09:39)
[2020-02-06] MEDS: Polyethylene Glycol 3350 17 GM Packet PO SCH ×2 (09:40→20:59)
[2020-02-06] MEDS: Carvedilol 3.125 MG TAB PO SCH ×2 (09:40→20:58)
[2020-02-06] MEDS: Enoxaparin Sodium 40 MG/0.4 ML SYRINGE SC SCH (09:43)
--- NOTE | 2020-02-06 09:45 | RAD ---
EXAM: Chest one view: HISTORY: Follow-up pneumonia COMPARISON: 01/31/2020 FINDINGS: Stable left hemidiaphragm elevation with moderate amount of gas within the colon Heart size: Borderline Lungs: Very extensive bilateral interstitial, alveolar, and groundglass opacity changes throughout dania th lungs concerning for extensive bilateral pneumonia. No significant pleural effusion or pneumothorax. IMPRESSION: No significant acute intrathoracic disease. Continued short-term follow-up.
[2020-02-06] MEDS: Atorvastatin Calcium 20 MG TAB PO SCH (20:58)
[2020-02-06] MEDS: Loratadine 10 MG TAB PO PRN (23:37)
[2020-02-07] MEDS: Aspirin 325 MG TAB PO SCH (08:28)
[2020-02-07] MEDS: Lisinopril 2.5 MG TAB PO SCH (08:28)
[2020-02-07] MEDS: Polyethylene Glycol 3350 17 GM Packet PO SCH ×2 (08:28→20:41)
[2020-02-07] MEDS: Enoxaparin Sodium 40 MG/0.4 ML SYRINGE SC SCH (08:28)
[2020-02-07] MEDS: guaiFENesin ER 600 MG TAB PO SCH ×2 (08:29→20:40)
[2020-02-07] MEDS: levETIRAcetam 500 MG TAB PO SCH ×2 (08:29→20:40)
[2020-02-07] MEDS: Carvedilol 3.125 MG TAB PO SCH ×2 (08:29→20:40)
[2020-02-07] MEDS: predniSONE 20 MG TAB PO SCH (08:29)
[2020-02-07] MEDS: OXcarbazepine 300 MG TAB PO SCH (08:29)
[2020-02-07] MEDS: Tamsulosin HCl 0.4 MG CAP PO SCH (08:29)
--- NOTE | 2020-02-07 11:37 | PDOC.HOSPP ---
- Subjective Encounter Date: 02/07/20 Encounter Time: 11:35 Subjective: comfortable at rest, dyspneic with any exertion - Objective Vital Signs & Weight: Vital Signs (12 hours) Temp Pulse Resp BP BP Pulse Ox 02/07/20 08:28 96 116/71 02/07/20 08:17 100 02/07/20 07:39 98.5 F 86 16 116/71 100 02/07/20 07:03 98 02/07/20 07:02 81 20 98 02/06/20 23:50 94 L Weight Admit Weight 216 lb 11.2 oz Weight 216 lb 11.2 oz Most Recent Monitor Data Heart Rate from ECG 101 NIBP 146/73 NIBP BP-Mean 97 Respiration from ECG 21 SpO2 94 I&O: 02/06/20 02/07/20 02/08/20 06:59 06:59 06:59 Intake Total 1200 1060 Output Total 1476 350 Balance -276 710 Result Diagrams: 02/05/20 06:04 02/03/20 09:28 Hospitalist ROS - Medication Medications: Active Medications Generic Name Dose Route Start Last Admin Trade Name Freq PRN Reason Stop Dose Admin Acetaminophen 650 mg 01/15/20 13:32 01/16/20 06:38 Acetaminophen 325 Mg Tab PO 650 mg Q4H PRN Administration Headache/Fever/Mild Pain (1-3) Albuterol/Ipratropium 3 ml 01/21/20 10:30 02/07/20 10:27 Ipratropium/Albuterol Sulfate 3 Ml Neb NEB 3 ml [id number] NEERU Administration Aspirin 325 mg 01/16/20 09:00 02/07/20 08:28 Aspirin 325 Mg Tab PO 325 mg DAILY NEERU Administration Atorvastatin Calcium 20 mg 01/16/20 21:00 02/06/20 20:58 Atorvastatin Calcium 20 Mg Tab PO 20 mg HS NEERU Administration Bisacodyl 10 mg 01/20/20 07:50 01/21/20 08:19 Bisacodyl 5 Mg Tab PO 10 mg DAILYPRN PRN Administration Constipation Carvedilol 3.125 mg 01/23/20 21:00 02/07/20 08:29 Carvedilol 3.125 Mg Tab PO 3.125 mg BID NEERU Administration Enoxaparin Sodium 40 mg 01/22/20 09:00 02/07/20 08:28 Enoxaparin Sodium 40 Mg/0.4 Ml Syringe SC 40 mg 0900 NEERU Administration Guaifenesin 200 mg 01/20/20 07:50 01/26/20 22:33 Diabetic Tussin 200 Mg/10 Ml Udcup PO 200 mg Q4H PRN Administration Cough Guaifenesin 600 mg 01/21/20 21:00 02/07/20 08:29 Guaifenesin Er 600 Mg Tab PO 600 mg Q12HR NEERU Administration Guaifenesin/Dextromethorphan 15 ml 01/15/20 23:13 01/26/20 04:54 Guaifenesin Dm 100-10/5 Ml Udcup PO 15 ml Q4H PRN Administration Cough Levetiracetam 1,000 mg 01/16/20 09:00 02/07/20 08:29 Levetiracetam 500 Mg Tab PO 1,000 mg QAM NEERU Administration Levetiracetam 1,500 mg 01/16/20 21:00 02/06/20 20:58 Levetiracetam 500 Mg Tab PO 1,500 mg QPM NEERU Administration Lisinopril 2.5 mg 01/21/20 09:00 02/07/20 08:28 Lisinopril 2.5 Mg Tab PO 2.5 mg DAILY NEERU Administration Loratadine 10 mg 01/20/20 07:50 02/06/20 23:37 Loratadine 10 Mg Tab PO 10 mg DAILYPRN PRN Administration Sinus Symptoms Oxcarbazepine 600 mg 01/17/20 09:00 02/07/20 08:29 Oxcarbazepine 300 Mg Tab PO 600 mg DAILY NEERU Administration Polyethylene Glycol 17 gm 01/21/20 10:00 02/07/20 08:28 Polyethylene Glycol 3350 17 Gm Packet PO 17 gm Q12H NEERU Administration Prednisone 40 mg 02/05/20 08:00 02/07/20 08:29 Prednisone 20 Mg Tab PO 40 mg QAM-WM NEERU Administration Sodium Chloride 10 ml 01/20/20 09:00 02/07/20 08:32 Flush - Normal Saline 10 Ml Syringe IVF Not Given Q12HR NEERU Sodium Chloride 10 ml 01/20/20 08:15 01/23/20 13:56 Flush - Normal Saline 10 Ml Syringe IVF 10 ml PRN PRN Administration Saline Flush Tamsulosin HCl 0.4 mg 10/20/20 09:00 02/07/20 08:29 Tamsulosin Hcl 0.4 Mg Cap PO 0.4 mg DAILY NEERU Administration - Exam General Appearance: awake alert Neck: no JVD Heart: RRR, no murmur Respiratory - other findings: diminished BS, bilat fine rales Gastrointestinal: soft, normal bowel sounds Extremities: no edema Hosp A/P (1) Acute combined systolic and diastolic congestive heart failure Code(s): I50.41 - ACUTE COMBINED SYSTOLIC AND DIASTOLIC (CONGESTIVE) HRT FAIL Status: Ruled-out (2) Acute respiratory failure with hypoxia Code(s): J96.01 - ACUTE RESPIRATORY FAILURE WITH HYPOXIA Status: Acute (3) Pneumonia Code(s): J18.9 - PNEUMONIA, UNSPECIFIED ORGANISM Status: Acute Qualifiers: Pneumonia type: due to Pneumococcus Laterality: right Lung location: lower lobe of lung Qualified Code(s): J13 - Pneumonia due to Streptococcus pneumoniae (4) Type 2 NH (myocardial infarction) Code(s): I21.A1 - MYOCARDIAL INFARCTION TYPE 2 Status: Acute (5) HTN (hypertension) Code(s): I10 - ESSENTIAL (PRIMARY) HYPERTENSION Status: Chronic Qualifiers: Hypertension type: essential hypertension Qualified Code(s): I10 - Essential (primary) hypertension (6) Seizure disorder Code(s): G40.909 - EPILEPSY, UNSP, NOT INTRACTABLE, WITHOUT STATUS EPILEPTICUS Status: Chronic (7) Cardiomyopathy Code(s): I42.9 - CARDIOMYOPATHY, UNSPECIFIED Status: Acute - Plan O2 supplementatio, taper high flow as indicated cont coreg, keppra, as , etc placement planning
--- NOTE | 2020-02-07 15:02 | PDOC.BPN ---
- Brief Progress Note Encounter Date: 02/07/20 Encounter Time: 15:00 transitioned from high flow O2 to $ Li/NC- sat stable at 100%
--- NOTE | 2020-02-07 16:39 | PRG ---
DATE OF SERVICE: 02/07/2020 SUBJECTIVE: Mr. Catherine says he feels a tiny bit better. He has been switched to nasal cannula. Today, his oximetry is in the high 90s with cannula. Now, he is on a cannula. He can be considered for transfer to a skilled unit and into a half-way. He says he has no desire to go home. He tells me his brother asked him to move to where he is and has been no help with his day-to-day activities, so he wants to go to a half-way. OBJECTIVE: VITAL SIGNS: Heart rate is in the 90s, oximetry is 99% on nasal cannula 4 L a minute. LUNGS: Remarkable for distant breath sounds. HEART: Regular rhythm. ABDOMEN: Soft. He declined a swallowing evaluation. He is really declined almost everything. It has been offered to him, but continues to say I have to feel better. Unfortunately, I think he is probably aspirating. If he continues to decline workup of the problem, then he probably needs to have his code status addressed as he going to the half-way. It is probably after transition here to a skilled unit before he can go into a half-way. Job ID: [id number]
[2020-02-07] MEDS: Atorvastatin Calcium 20 MG TAB PO SCH (20:40)
[2020-02-07] MEDS: Loratadine 10 MG TAB PO PRN (23:50)
[2020-02-08] MEDS: levETIRAcetam 500 MG TAB PO SCH ×2 (10:04→19:26)
[2020-02-08] MEDS: Polyethylene Glycol 3350 17 GM Packet PO SCH ×2 (10:04→19:26)
[2020-02-08] MEDS: Carvedilol 3.125 MG TAB PO SCH ×2 (10:05→19:26)
[2020-02-08] MEDS: Tamsulosin HCl 0.4 MG CAP PO SCH (10:05)
[2020-02-08] MEDS: predniSONE 20 MG TAB PO SCH (10:05)
[2020-02-08] MEDS: guaiFENesin ER 600 MG TAB PO SCH ×2 (10:05→19:26)
[2020-02-08] MEDS: Lisinopril 2.5 MG TAB PO SCH (10:05)
[2020-02-08] MEDS: Aspirin 325 MG TAB PO SCH (10:06)
[2020-02-08] MEDS: OXcarbazepine 300 MG TAB PO SCH (10:06)
[2020-02-08] MEDS: Enoxaparin Sodium 40 MG/0.4 ML SYRINGE SC SCH (10:06)
--- NOTE | 2020-02-08 13:17 | PDOC.HOSPP ---
- Subjective Encounter Date: 02/08/20 Encounter Time: 13:15 Subjective: stable respiratory status on NC - Objective Vital Signs & Weight: Vital Signs (12 hours) Temp Pulse Pulse Pulse Resp BP BP 02/08/20 11:42 90 22 H 02/08/20 10:54 97 92 02/08/20 10:05 96 126/69 02/08/20 08:16 97.5 F L 109 H 36 H 126/69 02/08/20 07:41 106 H 24 H Pulse Ox Pulse Ox Pulse Ox Pulse Ox 02/08/20 11:42 94 L 02/08/20 10:54 95 73 L 95 02/08/20 10:05 02/08/20 08:16 92 L 02/08/20 07:41 92 L Weight Admit Weight 216 lb 11.2 oz Weight 216 lb 11.2 oz Most Recent Monitor Data Heart Rate from ECG 101 NIBP 146/73 NIBP BP-Mean 97 Respiration from ECG 21 SpO2 94 I&O: 02/07/20 02/08/20 02/09/20 06:59 06:59 06:59 Intake Total 1060 1480 Output Total 350 1100 Balance 710 380 Result Diagrams: 02/05/20 06:04 02/03/20 09:28 Hospitalist ROS - Medication Medications: Active Medications Generic Name Dose Route Start Last Admin Trade Name Freq PRN Reason Stop Dose Admin Acetaminophen 650 mg 01/15/20 13:32 01/16/20 06:38 Acetaminophen 325 Mg Tab PO 650 mg Q4H PRN Administration Headache/Fever/Mild Pain (1-3) Albuterol/Ipratropium 3 ml 01/21/20 10:30 02/08/20 11:42 Ipratropium/Albuterol Sulfate 3 Ml Neb NEB 3 ml [id number] NEERU Administration Aspirin 325 mg 01/16/20 09:00 02/08/20 10:06 Aspirin 325 Mg Tab PO 325 mg DAILY NEERU Administration Atorvastatin Calcium 20 mg 01/16/20 21:00 02/07/20 20:40 Atorvastatin Calcium 20 Mg Tab PO 20 mg HS NEERU Administration Bisacodyl 10 mg 01/20/20 07:50 01/21/20 08:19 Bisacodyl 5 Mg Tab PO 10 mg DAILYPRN PRN Administration Constipation Carvedilol 3.125 mg 01/23/20 21:00 02/08/20 10:05 Carvedilol 3.125 Mg Tab PO 3.125 mg BID NEERU Administration Enoxaparin Sodium 40 mg 01/22/20 09:00 02/08/20 10:06 Enoxaparin Sodium 40 Mg/0.4 Ml Syringe SC 40 mg 0900 NEERU Administration Guaifenesin 200 mg 01/20/20 07:50 01/26/20 22:33 Diabetic Tussin 200 Mg/10 Ml Udcup PO 200 mg Q4H PRN Administration Cough Guaifenesin 600 mg 01/21/20 21:00 02/08/20 10:05 Guaifenesin Er 600 Mg Tab PO 600 mg Q12HR NEERU Administration Guaifenesin/Dextromethorphan 15 ml 01/15/20 23:13 01/26/20 04:54 Guaifenesin Dm 100-10/5 Ml Udcup PO 15 ml Q4H PRN Administration Cough Levetiracetam 1,000 mg 01/16/20 09:00 02/08/20 10:04 Levetiracetam 500 Mg Tab PO 1,000 mg QAM NEERU Administration Levetiracetam 1,500 mg 01/16/20 21:00 02/07/20 20:40 Levetiracetam 500 Mg Tab PO 1,500 mg QPM NEERU Administration Lisinopril 2.5 mg 01/21/20 09:00 02/08/20 10:05 Lisinopril 2.5 Mg Tab PO 2.5 mg DAILY NEERU Administration Loratadine 10 mg 01/20/20 07:50 02/07/20 23:50 Loratadine 10 Mg Tab PO 10 mg DAILYPRN PRN Administration Sinus Symptoms Oxcarbazepine 600 mg 01/17/20 09:00 02/08/20 10:06 Oxcarbazepine 300 Mg Tab PO 600 mg DAILY NEERU Administration Polyethylene Glycol 17 gm 01/21/20 10:00 02/08/20 10:04 Polyethylene Glycol 3350 17 Gm Packet PO 17 gm Q12H NEERU Administration Prednisone 40 mg 02/05/20 08:00 02/08/20 10:05 Prednisone 20 Mg Tab PO 40 mg QAM-WM NEERU Administration Sodium Chloride 10 ml 01/20/20 09:00 02/08/20 10:07 Flush - Normal Saline 10 Ml Syringe IVF 10 ml Q12HR NEERU Administration Sodium Chloride 10 ml 01/20/20 08:15 01/23/20 13:56 Flush - Normal Saline 10 Ml Syringe IVF 10 ml PRN PRN Administration Saline Flush Tamsulosin HCl 0.4 mg 01/16/20 09:00 02/08/20 10:05 Tamsulosin Hcl 0.4 Mg Cap PO 0.4 mg DAILY NEERU Administration - Exam General Appearance: awake alert General - other findings: cranky Neck: no JVD Heart: RRR, no murmur Respiratory - other findings: coarse BS with rhonchi Gastrointestinal: soft, non-tender, normal bowel sounds Extremities: no edema Hosp A/P (1) Acute combined systolic and diastolic congestive heart failure Code(s): I50.41 - ACUTE COMBINED SYSTOLIC AND DIASTOLIC (CONGESTIVE) HRT FAIL Status: Ruled-out (2) Acute respiratory failure with hypoxia Code(s): J96.01 - ACUTE RESPIRATORY FAILURE WITH HYPOXIA Status: Acute (3) Pneumonia Code(s): J18.9 - PNEUMONIA, UNSPECIFIED ORGANISM Status: Acute Qualifiers: Pneumonia type: due to Pneumococcus Laterality: right Lung location: lower lobe of lung Qualified Code(s): J13 - Pneumonia due to Streptococcus pneumoniae (4) Type 2 ND (myocardial infarction) Code(s): I21.A1 - MYOCARDIAL INFARCTION TYPE 2 Status: Acute (5) HTN (hypertension) Code(s): I10 - ESSENTIAL (PRIMARY) HYPERTENSION Status: Chronic Qualifiers: Hypertension type: essential hypertension Qualified Code(s): I10 - Essential (primary) hypertension (6) Seizure disorder Code(s): G40.909 - EPILEPSY, UNSP, NOT INTRACTABLE, WITHOUT STATUS EPILEPTICUS Status: Chronic (7) Cardiomyopathy Code(s): I42.9 - CARDIOMYOPATHY, UNSPECIFIED Status: Acute - Plan O2 supplementatio, on 4 Li per NC cont coreg, keppra, as , etc placement planning
[2020-02-08] MEDS: Atorvastatin Calcium 20 MG TAB PO SCH (19:26)
--- NOTE | 2020-02-08 19:36 | PRG ---
DATE OF SERVICE: 02/08/2020 Mr. Catherine is clinically unchanged. He is now on 4 L cannula and oximetry is in the mid 90s. His hemodynamics have been stable. Respiratory rates in the high teens to low 20s. Placement is the next step. There is no further testing or interventions recommended at this point in time. Medications have been reviewed. We will continue with his seizure medications and his blood pressure medications. His prednisone probably can be tapered starting this weekend, that I would taper it over probably 3 weeks. He has had an adequate course of antimicrobial therapy. He probably does not need an x-ray again for another month unless he has a decline in function. We will see him as needed. He wants to go to a penitentiary, so it is unclear whether or not he needs to be seen by us in the future. I tried to discuss end of life issues and code status, but all he wanted to discuss was going to a penitentiary. Job ID: [id number]
[2020-02-08] MEDS: Loratadine 10 MG TAB PO PRN (23:23)
[2020-02-09] MEDS: Polyethylene Glycol 3350 17 GM Packet PO SCH (08:57)
[2020-02-09] MEDS: guaiFENesin ER 600 MG TAB PO SCH (08:58)
[2020-02-09] MEDS: Aspirin 325 MG TAB PO SCH (08:58)
[2020-02-09] MEDS: Carvedilol 3.125 MG TAB PO SCH (08:58)
[2020-02-09] MEDS: OXcarbazepine 300 MG TAB PO SCH (08:58)
[2020-02-09] MEDS: Tamsulosin HCl 0.4 MG CAP PO SCH (08:58)
[2020-02-09] MEDS: Enoxaparin Sodium 40 MG/0.4 ML SYRINGE SC SCH (08:59)
[2020-02-09] MEDS: levETIRAcetam 500 MG TAB PO SCH (09:00)
[2020-02-09] MEDS: predniSONE 20 MG TAB PO SCH (09:00)
[2020-02-09] MEDS: Lisinopril 2.5 MG TAB PO SCH (09:02)
--- NOTE | 2020-02-09 11:50 | PDOC.HOSPP ---
- Subjective Encounter Date: 02/09/20 Encounter Time: 11:44 Subjective: stable O2 sat at rest. still desats with activity - Objective Vital Signs & Weight: Vital Signs (12 hours) Temp Pulse Resp BP Pulse Ox 02/09/20 10:54 90 20 91 L 02/09/20 09:02 88 02/09/20 08:00 91 L 02/09/20 07:47 88 24 H 90 L 02/09/20 06:59 97.9 F 91 15 105/67 95 Weight Admit Weight 216 lb 11.2 oz Weight 216 lb 11.2 oz Most Recent Monitor Data Heart Rate from ECG 101 NIBP 146/73 NIBP BP-Mean 97 Respiration from ECG 21 SpO2 94 I&O: 02/08/20 02/09/20 02/10/20 06:59 06:59 06:59 Intake Total 1480 1530 Output Total 1100 1300 Balance 380 230 Result Diagrams: 02/05/20 06:04 02/03/20 09:28 Hospitalist ROS - Medication Medications: Active Medications Generic Name Dose Route Start Last Admin Trade Name Freq PRN Reason Stop Dose Admin Acetaminophen 650 mg 01/15/20 13:32 01/16/20 06:38 Acetaminophen 325 Mg Tab PO 650 mg Q4H PRN Administration Headache/Fever/Mild Pain (1-3) Albuterol/Ipratropium 3 ml 01/21/20 10:30 02/09/20 10:54 Ipratropium/Albuterol Sulfate 3 Ml Neb NEB 3 ml [id number] NEERU Administration Aspirin 325 mg 01/16/20 09:00 02/09/20 08:58 Aspirin 325 Mg Tab PO 325 mg DAILY NEERU Administration Atorvastatin Calcium 20 mg 01/16/20 21:00 02/08/20 19:26 Atorvastatin Calcium 20 Mg Tab PO 20 mg HS NEERU Administration Bisacodyl 10 mg 01/20/20 07:50 01/21/20 08:19 Bisacodyl 5 Mg Tab PO 10 mg DAILYPRN PRN Administration Constipation Carvedilol 3.125 mg 01/23/20 21:00 02/09/20 08:58 Carvedilol 3.125 Mg Tab PO 3.125 mg BID NEERU Administration Enoxaparin Sodium 40 mg 01/22/20 09:00 02/09/20 08:59 Enoxaparin Sodium 40 Mg/0.4 Ml Syringe SC 40 mg 0900 NEERU Administration Guaifenesin 200 mg 01/20/20 07:50 01/26/20 22:33 Diabetic Tussin 200 Mg/10 Ml Udcup PO 200 mg Q4H PRN Administration Cough Guaifenesin 600 mg 01/21/20 21:00 02/09/20 08:58 Guaifenesin Er 600 Mg Tab PO 600 mg Q12HR NEERU Administration Guaifenesin/Dextromethorphan 15 ml 01/15/20 23:13 01/26/20 04:54 Guaifenesin Dm 100-10/5 Ml Udcup PO 15 ml Q4H PRN Administration Cough Levetiracetam 1,000 mg 01/16/20 09:00 02/09/20 09:00 Levetiracetam 500 Mg Tab PO 1,000 mg QAM NEERU Administration Levetiracetam 1,500 mg 01/16/20 21:00 02/08/20 19:26 Levetiracetam 500 Mg Tab PO 1,500 mg QPM NEERU Administration Lisinopril 2.5 mg 01/21/20 09:00 02/09/20 09:02 Lisinopril 2.5 Mg Tab PO Not Given DAILY NEERU Loratadine 10 mg 01/20/20 07:50 02/08/20 23:23 Loratadine 10 Mg Tab PO 10 mg DAILYPRN PRN Administration Sinus Symptoms Oxcarbazepine 600 mg 01/17/20 09:00 02/09/20 08:58 Oxcarbazepine 300 Mg Tab PO 600 mg DAILY NEERU Administration Polyethylene Glycol 17 gm 01/21/20 10:00 02/09/20 08:57 Polyethylene Glycol 3350 17 Gm Packet PO 17 gm Q12H NEERU Administration Sodium Chloride 10 ml 01/20/20 09:00 02/09/20 09:02 Flush - Normal Saline 10 Ml Syringe IVF 10 ml Q12HR NEERU Administration Sodium Chloride 10 ml 01/20/20 08:15 01/23/20 13:56 Flush - Normal Saline 10 Ml Syringe IVF 10 ml PRN PRN Administration Saline Flush Tamsulosin HCl 0.4 mg 01/16/20 09:00 02/09/20 08:58 Tamsulosin Hcl 0.4 Mg Cap PO 0.4 mg DAILY NEERU Administration - Exam General Appearance: awake alert Neck: no JVD Heart: RRR, no murmur Respiratory: CTAB Gastrointestinal: soft, normal bowel sounds Extremities: no edema Hosp A/P (1) Acute combined systolic and diastolic congestive heart failure Code(s): I50.41 - ACUTE COMBINED SYSTOLIC AND DIASTOLIC (CONGESTIVE) HRT FAIL Status: Ruled-out (2) Acute respiratory failure with hypoxia Code(s): J96.01 - ACUTE RESPIRATORY FAILURE WITH HYPOXIA Status: Acute (3) Pneumonia Code(s): J18.9 - PNEUMONIA, UNSPECIFIED ORGANISM Status: Acute Qualifiers: Pneumonia type: due to Pneumococcus Laterality: right Lung location: lower lobe of lung Qualified Code(s): J13 - Pneumonia due to Streptococcus pneumoniae (4) Type 2 VT (myocardial infarction) Code(s): I21.A1 - MYOCARDIAL INFARCTION TYPE 2 Status: Acute (5) HTN (hypertension) Code(s): I10 - ESSENTIAL (PRIMARY) HYPERTENSION Status: Chronic Qualifiers: Hypertension type: essential hypertension Qualified Code(s): I10 - Essential (primary) hypertension (6) Seizure disorder Code(s): G40.909 - EPILEPSY, UNSP, NOT INTRACTABLE, WITHOUT STATUS EPILEPTICUS Status: Chronic (7) Cardiomyopathy Code(s): I42.9 - CARDIOMYOPATHY, UNSPECIFIED Status: Acute - Plan O2 supplementatio, on 4 Li per NC cont coreg, keppra, as , etc placement planning
[2020-02-09 17:26] VITALS: BP 155/90; TEMP 97.6
[2020-02-10] MEDS ORDERED: predniSONE 20 MG TAB PO SCH (08:00)
--- NOTE | 2020-02-10 09:04 | DIS ---
DATE OF ADMISSION: 01/15/2020 DATE OF DISCHARGE: 02/09/2020 DISPOSITION: Discharged to [facility] in [place]. PRIMARY CARE PROVIDER: Jose Watts MD DISCHARGE MEDICATIONS: 1. Aspirin 81 mg a day. 2. Oxcarbazepine 600 mg a day in the morning. 3. Flomax 0.4 mg a day. 4. Prednisone 30 mg a day to be tapered to 20 mg a day after 7 days, to be tapered to 10 mg a day after 7 days, to be discontinued after 7 days. 5. Zocor 40 mg a day. 6. Prednisone 30 mg a day. 7. Keppra 1000 mg in the morning, 1500 mg at night. 8. Lisinopril 2.5 mg a day. 9. DuoNeb 3 mL q.4 hours p.r.n. 10. Coreg 3.125 mg twice a day. ALLERGIES: TO NAPROSYN. DISCHARGE DIAGNOSES: 1. Acute respiratory failure, on hypoxia. 2. Pneumonia. 3. Cardiomyopathy. 4. Congestive heart failure with ejection fraction of 45% to 50% and diastolic dysfunction. 5. Type 2 myocardial infarction. 6. The congestive heart failure is acute combined systolic and diastolic heart failure. 7. Hypertension. 8. Seizure disorder. DIET: Heart healthy. CODE STATUS: Full resuscitation. PENDING AT TIME OF DISCHARGE: Nothing. HOSPITAL COURSE: The patient admitted to the [facility] through the emergency room. The patient complained of shortness of breath 2 to 3 weeks duration, fever, cough. On evaluation, he is found to have chest x-ray with infiltrates worse on the right than the left, thought to be either pneumonia, heart failure, or both. CTA of the thorax revealed diffuse peripheral ground-glass opacities with nonspecific infiltrates. His laboratory on admission, white count elevated at 15,000, 86% neutrophils, hemoglobin 18.9, platelet count 552,000. INR 1.2. D-dimer 4.11. Sodium 132, chloride 96, blood sugar 131, AST 37, alkaline phosphatase 133. BNP elevated minimally at 272. Troponin was 0.331. C- reactive protein elevated at 26. His COVID test was negative. He was initially evaluated by hospitalist on admission consults with Dr. Diaz Morales, Pulmonology; Dr. Najma Pickering, Cardiology were obtained. Dr. Morales's consultation recommended broad-spectrum antibiotics with Zithromax and ceftriaxone, nebulizers, oxygen as needed. Recommended repeating his COVID test. He had multiple COVID tests, all were negative. Dr. Najma Pickering ordered an echocardiogram. The patient has a history of hypertension. Diagnosis with type 2 myocardial infarction. Echocardiogram, EF 45% to 50% with diastolic dysfunction. On 01/17, he had mild shortness of breath, was still on high-flow oxygen. Continued on hypertensive medications, antibiotics, nebs, he required high-flow O2. During his stay, his medications were adjusted. He continued to require high-flow O2. On 01/20, his chest x-ray was adverse with adverse changes on both right and left. He was on high-flow O2. His antibiotics had been changed to cefepime and vancomycin. He was started on IV steroids, continued high-flow O2. On 01/25, somewhat improved. White cell count was down to 13.7, potassium 4.4. Sodium 135, BUN 23, and creatinine 1.1. At this time it was thought he would improve rapidly, however, he continued to require high-flow O2. At this time, continued on high-flow O2. He was still on cefepime. Chest x-ray on 01/30 shows some improvement on infiltrate on right and the left. Past several days, the patient has finally been weaned to nasal cannula starting 02/07/2020. His chest currently on exam reveals clear to auscultation and percussion. Heart had a regular rate and rhythm. Vital signs are stable. The patient's most recent laboratory on 02/05/2020, white count still 14.6. This is elevated due to his current prednisone dose which is 40 mg a day. Hemoglobin is 11.5, platelet count is 348,000. His laboratory on 02/02 revealed a sodium 133, potassium 4.1, chloride 90, CO2 of 34, BUN 16, creatinine 0.93. Pulmonology's latest comments, done 02/[address] Marvel Hines, states he has had an adequate course of antimicrobial therapy. Does not need another x-ray until mid February unless he has a decline. He is being discharged to [place], [place] with the physician previously stated, Dr. Gisel Horta, physician. He will need follow up in 3 days. As mentioned before, his progress has been slow, but he is doing remarkably well at the current time. 40 minutes spent preparing this discharge. Job ID: [id number] KATIE
--- NOTE | 2020-02-12 04:56 | PQF ---
CLINICAL DOCUMENTATION CLARIFICATION FORM: Dear : Leonora Mccoy Date / Time: 02/12/2020 5599 Please exercise your independent, professional judgment in responding to the clarification form. Clinical indicators are provided on the bottom of this form for your review Please check appropriate box(es): [ ] Aspiration Pneumonia [ ] Pneumonia due to Streptococcus pneumoniea [ x ] Aspiration Pneumonia and Pneumonia due to Streptococcus pneumoniea [ ] Other diagnosis [ ] Unable to determine Physician Signature: Date/Time: For continuity of documentation, please document condition throughout progress notes and discharge summary. Thank You. To be completed by CDI/Coding staff for physician review: Present Clinical Indicators - Signs / Symptoms / Labs Results and Location in Medical Record [X] WBC 15.4, Plt count 552, Neutrophils 86.5 Laboratory 02/14 [X] Nasopharyneal swab Microbiology 02/14 [X] Chest X-ray Impression: Evidence of interstitial congestion and diffuse interstitial and/or infiltrates Imaging Dr Wu 02/14 [X] BP 186/96, Pulse 98, Resp 24, Temp 98.0 Vital signs [X] Right lower lobe community acuired pneumonia versus aspiration pneumonia Consult Dr Morales 02/14 [X] He states that 3 weeks ago he developed low-grade fevers, nasal congestion and some cough H&P p1 02/14 Dr Ellis [X] Acute hypoxic respiratory failure H&P p3 02/14 Dr Ellis [X] Pneumonia due to Streptococcus pneumoniea HPN p4 01/16 Dr Mccoy Present Risk Factors Results and Location in Medical Record [X] 69 year-old Male H&P p1 02/14 Dr Ellis [X] HTN H&P p2 02/14 Dr Ellis [X] Long standing hx of chewing tobacco H&P p2 02/14 Dr Ellis [X] Seizure disorder H&P p3 02/14 Dr Ellis Present Treatments Results and Location in Medical Record [X] Albuterol Sulfate 2 puff Inhaler MAR 01/14 [X] Duoneb 3ml Inhaler MAR 01/14 [X] IV Zithromax 500 mg MAR 02/14 [X] IV Rocephin 2 gm MAR 02/14 [X] IV Vancomycin 2 gm JUN 05 [X] Nasopharyneal swab Microbiology 02/14 [X] Chest X-ray Imaging Dr Wu 02/14 [X] High Flow O2 Respiratory panel 02/14 [X] Pulmo consult Consult Dr Morales 02/14 CDS/Cardiology Coordinator Signature: Love Nugent Franky Phone #: ext [phone] Date/Time: 02/12/2020 2543 This is a permanent part of the Medical Record [facility]
== END 2020-02-09 17:53 | DRG 177 ==
LOC: ERS 09:58 → ERHOLD 13:45 → IMCU/EMU 22:41 → T4-A 01-18 11:27
PROVIDERS: ADMIT Emergency Medicine; ATTEND Internal Medicine
PROC: 3E0234Z Introduction of Serum, Toxoid and Vaccine into Muscle, Percutaneous Approach (ICD-10-PCS; 2020-01-16)
PROC: 3E02340 Introduction of Influenza Vaccine into Muscle, Percutaneous Approach (ICD-10-PCS; 2020-01-16)
PROC: 5A09357 Assistance with Respiratory Ventilation, Less than 24 Consecutive Hours, Continuous Positive Airway Pressure (ICD-10-PCS; principal; 2020-02-05)
DX: J69.0 Pneumonitis due to inhalation of food and vomit (principal); I21.A1 Myocardial infarction type 2; J96.01 Acute respiratory failure with hypoxia; I50.41 Acute combined systolic (congestive) and diastolic (congestive) heart failure; J44.0 Chronic obstructive pulmonary disease with (acute) lower respiratory infection; I16.1 Hypertensive emergency; E87.3 Alkalosis; I42.9 Cardiomyopathy, unspecified; I11.0 Hypertensive heart disease with heart failure; J13 Pneumonia due to Streptococcus pneumoniae; Z20.828 Contact with and (suspected) exposure to other viral communicable diseases; G40.909 Epilepsy, unspecified, not intractable, without status epilepticus; N40.0 Benign prostatic hyperplasia without lower urinary tract symptoms; E78.5 Hyperlipidemia, unspecified; F17.290 Nicotine dependence, other tobacco product, uncomplicated; E87.6 Hypokalemia; Z23 Encounter for immunization; Z88.6 Allergy status to analgesic agent; Z88.8 Allergy status to other drugs, medicaments and biological substances; Z79.899 Other long term (current) drug therapy; Z79.82 Long term (current) use of aspirin
CPT/HCPCS: 36415; 70450; 71045; 71046; 71275; 80048; 80053; 80202; 81003; 81015; 82330; 82553; 82728; 82803; 82805; 83605; 83735; 83880; 84443; 84484; 85025; 85379; 85610; 85730; 86140; 86769; 87040; 87086; 87449; 87635; 87804; 87899; 90471; 90662; 90715; 90732; 93005; 93306; 93970; 94640; 94664; 96365; 96367; 96372; 96375; G0008; G0009; J0456; J0692; J0696; J1100; J1650; J1940; J2920; J3370; J3475; J3490; J7030; J7050; J7512; J7620; J8540; Q9967; U0002; U0003